=== PATIENT | male | born 1955 | race Caucasian/White ===

== ENCOUNTER → 2016-10-15 | Outpatient (CLI) | payer MEDICARE, BC ==
[~2016-10-15] MED LIST: AMLO10TA2 PO; AMLO25TA PO; ASPI1TAB PO; ATOR40TA PO; CITA10TA5 PO; CLON-404 PO; CLONI1TA PO; CLOTR1CR TOP; COUM2.5T11 PO; Calcium/Vitamin D PO; DICL13PA TD; DIPH50CA PO; DOCU10CA PO; DRIS50002 PO; FERG1TAB PO; FERR325T69 PO; GABA-283 PO; GABA300C3 PO; GLIP10TA6 PO; GLUC4CHW PO; HYDR10TAB PO; HYDR1CRE TOP; INSUHUMDS SC; INSULADS SC; ISOVUE-370 76% 100ML VIAL (Q9967) As Ordered ONE; K-TA10TA2 PO; LIPI20TA PO; LISI40TAB PO; LOVE0.6I2 SC; MAG400TA PO; MAGN1TAB25 PO; METF500T PO; MILKSUS PO; MIRA3350 PO; MORP15TA2 PO; MORP30TA34 PO; MSIR30TA PO; OSCA200T PO; POTA10CA PO; PRAD150C PO; PROT1TAB2 PO; SENN8.6C PO; TAMS0.4C2 PO; TRAZ25TA PO; TUMS500C PO; TYLE167L PO; TYLE325T5 PO; VITA100066 PO; ZOLP10TA2 PO
--- NOTE | 2016-10-15 16:32 | REP ---
Abdominal and bilateral lower extremity CT angiogram with IV contrast: History: Peripheral vascular disease. CT contrast dose: 100 ml of Isovue [address] technique: Helical scanning is acquired. 3 mm axial slices are reformatted. Coronal and sagittal multiplanar reformation images are generated and reviewed. In addition 3-D workstation generated thick slab MIP and curved array MPR images are acquired along with 3-D surface rendered images. These displayed rotationally. Nonvascular CT findings: The spleen measures 15 cm in anteroposterior dimension and is felt to be somewhat enlarged. There is an accessory splenule noted anteriorly. The spleen measured 13.8 cm in AP dimension in December 2015. There is a 1.0 cm calculus in the left kidney without hydronephrosis. This is unchanged from the prior CT. There is calcification of the vas deferens noted incidentally. There are degenerative changes in the lumbosacral spine. Vascular findings: The suprarenal and infrarenal abdominal aorta show minimal atherosclerotic irregularity, but are widely patent. The celiac and superior mesenteric artery origins are patent. The inferior mesenteric artery is perfused and patent. Singular non-stenotic right renal artery is seen. The left renal artery is duplicated. No renal artery stenosis is seen. Common iliac arteries are widely patent bilaterally. There is atherosclerotic irregularity at the common iliac artery bifurcations on both sides. The internal iliac arteries are patent, but calcific. No significant external iliac artery stenosis is seen on either side. On the left, there is a 50% stenosis at the origin of the superficial femoral artery. There is a 75% focal stenosis in the proximal superficial femoral artery on the left in the proximal thigh. There is a 50% stenosis in the adductor canal segment of the superficial femoral artery on the left. The left popliteal artery shows 75 to 80% stenosis at the level of the knee joint. Good caliber uninterrupted flow is seen in the left anterior tibial. This is seen crossing the ankle. The left peroneal is seen to the distal calf. The posterior tibial is occluded at the mid calf level. On the right, there is 50% stenosis in the proximal superficial femoral at the level of the proximal thigh. The right popliteal artery is occluded just above the level of the knee. Geniculate collaterals are perfused and reconstitutes the distal popliteal at the level of the tibioperoneal trunk. There is a short segment occlusion of the proximal posterior tibial artery. Anterior tibial artery is patent proximally and there is straight line flow to the ankle and the anterior tibial. Beyond the proximal occlusion, the posterior tibial artery is patent across the ankle as well. The peroneal artery is seen on the right in addition. Impression: Multifocal atherosclerotic lesions. The dominant abnormality is occlusion of the popliteal artery on the right and short segment occlusion of the proximal posterior tibial artery on the right in the proximal calf. There is a high-grade stenosis in the popliteal artery on the left. Multifocal superficial femoral artery stenoses are seen. Signed by Vicente Le MD 10/16/2016 08:28 A
== END ==
LOC: M RAD 13:34
PROVIDERS: ATTEND Internal Medicine Nephrology
DX: I70.303 Unspecified atherosclerosis of unspecified type of bypass graft(s) of the extremities, bilateral legs (principal); I70.8 Atherosclerosis of other arteries
CPT/HCPCS: 75635; Q9967

== ENCOUNTER → 2016-10-18 | Outpatient (REF) | payer MEDICARE, BC ==
[~2016-10-18] MED LIST changes: -ISOVUE-370 76% 100ML VIAL (Q9967) As Ordered ONE
[2016-10-19 14:16] LABS: CALCIUM LEVEL 8.9 MG/DL (8.8-10.2); CREATININE FOR GFR 1.95 MG/DL (0.70-1.30); GLOMERULAR FILTRATION RATE 37.5 (>49); POTASSIUM SERUM 3.4 MEQ/L (3.5-5.1)
== END ==
LOC: M LAB REF 09:38
PROVIDERS: ATTEND Internal Medicine Nephrology
DX: N18.5 Chronic kidney disease, stage 5 (principal)

== ENCOUNTER → 2016-12-07 | Outpatient (REF) | payer MEDICARE, BC ==
[2016-12-07 18:59] LABS: INR 1.14
== END ==
LOC: M LAB REF 17:28
PROVIDERS: ATTEND Internal Medicine Nephrology
DX: Z51.81 Encounter for therapeutic drug level monitoring (principal); Z79.01 Long term (current) use of anticoagulants

== ENCOUNTER → 2016-12-08 | Outpatient (CLI) | payer MEDICARE, BC ==
[~2016-12-08] MED LIST changes: +HEPARIN 1,000 UNITS/ML 10ML VIAL (FOR RADIOLOGY& DIALYSIS ONLY) As Ordered ONE; +ISOVUE-300 61% 50ML VIAL (Q9967) As Ordered ONE; +KETAMINE HCL 200 MG/20 ML VIAL As Ordered ONE; +METOCLOPRAMIDE INJ 10MG/2ML VIAL (J2765) IV PRN; +MIDAZOLAM INJ 2 MG/2 ML VIAL (J2250) As Ordered ONE; +ONDANSETRON 4MG/2ML VIAL (J2405) As Ordered ONE; +ONDANSETRON 4MG/2ML VIAL (J2405) IV PRN; +SODIUM BICARBONATE 8.4% INJ 50MEQ 50 ML VIAL As Ordered ONE; +fentaNYL 100 MCG/2 ML INJECTION (J3010) As Ordered ONE; +fentaNYL 100 MCG/2 ML INJECTION (J3010) IV PRN; +oxyCODONE 15 MG CR TAB PO ONE
[2016-12-08 15:50] VITALS: BP 131/56
--- NOTE | 2016-12-08 17:33 | REPKIM ---
CLINICAL HISTORY: Patient with history of ESRD on HD via right arm AVF, HTN, diabetes, CVA, DVT, PVD/PAD was referred to IR for an abdominal aortogram/ bilateral distal runoff possible intervention. Patient c/o relatively significant claudication/right leg pain during dialysis. PSH includes left 5th toe amputation approximately 4 years ago. PROCEDURE PERFORMED: 1. Abdominal Aortogram 2. Non-selective Pelvic Arteriogram 3. Selective Bilateral Lower Extremity Arteriogram INTERVENTIONALIST: Yaneth Carbajal MD CONSENT: The risks, benefits and alternatives to the procedure were explained to the patient and informed written consent was obtained. SEDATION: Sedation and analgesia was provided by the Anesthesiology Dept. CONTRAST: 158 mL Isovue 300 EBL: 10 mL FLUORO TIME: 7.2 minutes PROCEDURE: The patient was brought to the interventional radiology suite and was positioned supine on the table. Time out procedure was performed. The left groin was prepped and draped in the usual sterile fashion. Local anesthetic was established using 2% Lidocaine. A 4-Hebrew vascular sheath was introduced into the left common femoral artery using the Seldinger technique with a 25-gauge micropuncture needle under ultrasound guidance. Over a guidewire, a 4-Hebrew Omniflush catheter was advanced and under fluoroscopy positioned at the level of the renal arteries. Contrast was injected and abdominal aortogram was performed in the frontal projection. The catheter was withdrawn and positioned in the distal aorta above its bifurcation. Contrast was injected and non- selective pelvic angiogram was performed in both oblique projections. Contrast was injected through the side arm of the vascular sheath and a selective left lower extremity arteriogram was performed. Then selective catheterization of the right common iliac artery was performed and the guidewire advanced to the right external iliac artery. Then the catheter was advanced and its tip positioned in the right external iliac artery/SFA. Contrast was injected and a selective right lower extremity arteriogram was performed. The catheter and vascular sheath were removed. Hemostasis was achieved by manual compression over the puncture site. The patient tolerated the procedure well with no complications. This procedure was performed with fluoroscopic guidance. Dr. Carbajal was present. FINDINGS: ABDOMINAL AORTA: The visualized portion of the abdominal aorta and its bifurcation is patent and demonstrates a classic anatomy. There is a single renal artery bilaterally, The infrarenal aorta is patent without significant stenosis or aneurysmal dilation. LEFT LOWER EXTREMITY: The common iliac artery and external iliac artery are patent with no significant stenosis. The internal iliac artery is patent with moderate to severe disease. The common femoral artery is patent with no significant stenosis. The profunda femoris artery is patent with no significant stenosis. The SFA is patent and continuous. There are multisegmental moderate stenoses involving the superficial femoral artery. There is short segment, approximately half centimeter in length occlusion/near occlusive stenosis involving the popliteal artery at the knee joint level. The tibioperoneal segment is patent but moderately diseased. The posterior tibial artery is occluded. There are two vessel distal runoff via the anterior tibial artery and peroneal artery. The anterior tibial artery continues as the dorsalis pedis artery in the foot with a short segment occlusion at the DP level. RIGHT LOWER EXTREMITY: The common iliac artery and external iliac artery are patent with no significant stenosis. The internal iliac artery is patent with moderate to severe disease. The common femoral artery is patent with no significant stenosis. The profunda femoris artery is patent with no significant stenosis. There are multisegmental moderate stenoses involving the superficial femoral artery. The entire popliteal artery is completely occluded both above and below the knee level. The tibioperoneal segment is completely occluded. The proximal posterior tibial artery, peroneal artery and anterior tibial artery all reconstitute via well developed geniculate collateral vessels. The posterior tibial artery then continuous as the plantar artery in the foot. The anterior tibial artery also continues as the dorsalis pedis artery in the foot IMPRESSION: 1. Evaluation of the abdominal aorta and pelvic arteries is unremarkable except diseased bilateral internal iliac artery. There is no significant inflow problem. 2. Multisegmental moderate stenoses involving bilateral superficial femoral arteries. Bilateral SFAs are diseased but patent and continuous. Bilateral profunda femoris arteries are patent with no significant stenosis. 3. Short segment popliteal artery occlusion at the knee joint level with anterior tibial artery and peroneal artery two vessel distal runoff on the left as discussed above. 4. Long segment complete occlusion of the popliteal artery both above and below the knee level. Complete occlusion of the tibioperoneal trunk. There is reconstitution of the proximal posterior tibial, peroneal and anterior tibial artery via well developed geniculate artery collaterals on the right as discussed above. The posterior tibial artery then continuous as the plantar artery in the foot. The anterior tibial artery also continues as the dorsalis pedis artery in the foot Resume anticoagulation. Popliteal artery intervention across the knee joint area is not the best location for endovascular stenting. Advise vascular surgery evaluation. Findings and plan discussed via phone with Dr. Jeong. Please see the report above for all other findings and details. cc: MD PAT Rutherford
== END | disposition home or self-care (01) ==
LOC: M IRPRO 09:42
PROVIDERS: ATTEND Internal Medicine Nephrology
DX: I70.211 Atherosclerosis of native arteries of extremities with intermittent claudication, right leg (principal); N18.6 End stage renal disease; Z99.2 Dependence on renal dialysis
CPT/HCPCS: 36247; 75625; 84132; C1769; C1887; C1894; J2250; J2405; J3010; Q9967

== ENCOUNTER 2017-01-12 03:27 | Emergency (ER) | payer MEDICARE, BC ==
[~2017-01-12] VITALS: Ht 185.4 cm; Wt 108.9 kg
[~2017-01-12 03:27] MED LIST changes: +GABA-282 PO; -GABA300C3 PO; -HEPARIN 1,000 UNITS/ML 10ML VIAL (FOR RADIOLOGY& DIALYSIS ONLY) As Ordered ONE; -ISOVUE-300 61% 50ML VIAL (Q9967) As Ordered ONE; -KETAMINE HCL 200 MG/20 ML VIAL As Ordered ONE; -METOCLOPRAMIDE INJ 10MG/2ML VIAL (J2765) IV PRN; -MIDAZOLAM INJ 2 MG/2 ML VIAL (J2250) As Ordered ONE; -ONDANSETRON 4MG/2ML VIAL (J2405) As Ordered ONE; -ONDANSETRON 4MG/2ML VIAL (J2405) IV PRN; -SODIUM BICARBONATE 8.4% INJ 50MEQ 50 ML VIAL As Ordered ONE; -fentaNYL 100 MCG/2 ML INJECTION (J3010) As Ordered ONE; -fentaNYL 100 MCG/2 ML INJECTION (J3010) IV PRN; -oxyCODONE 15 MG CR TAB PO ONE
[2017-01-12] MEDS ORDERED: ISOVUE-370 76% 100ML VIAL (Q9967) As Ordered ONE (04:59)
[2017-01-12] MEDS ORDERED: METOCLOPRAMIDE INJ 10MG/2ML VIAL (J2765) IV ONE (05:00)
[2017-01-12] MEDS ORDERED: diphenhydrAMINE INJ 50MG/ML VIAL (J1200) IV ONE (05:00)
[2017-01-12] MEDS ORDERED: MORPHINE 4 MG/ML 1ML SYRINGE IV PRN (05:00)
[2017-01-12 05:08] LABS: BASO % 0.6 % (0.0-1.0); EOS # 0.2 K/mm3 (0.0-0.50); EOS % 3.7 % (0.0-3.0); LARGE UNSTAINED CELL # 0.1 K/mm3 (0.0-0.4); LARGE UNSTAINED CELL % 2.1 % (0.0-4.0); LYMPH # 1.7 K/mm3 (1.5-4.5); LYMPH % 26.5 % (24.0-44.0); MEAN CORPUSCULAR HEMOGLOBIN 30.8 pg (27.0-33.0); MEAN CORPUSCULAR HGB CONC 34.7 g/dl (32.0-36.5); MEAN CORPUSCULAR VOLUME 88.9 fl (80.0-96.0); MONO # 0.4 K/mm3 (0.0-0.8); MONO % 6.2 % (0.0-5.0); NEUTROPHILS # 3.8 K/mm3 (1.8-7.7); NEUTROPHILS % 61.1 % (36.0-66.0); PLATELET COUNT, AUTOMATED 357 k/mm3 (150-450); RED CELL DISTRIBUTION WIDTH 13.2 % (11.5-14.5); WHITE BLOOD COUNT 6.2 K/mm3 (4.0-10.0)
[2017-01-12 05:20] LABS: ALBUMIN 3.8 GM/DL (3.2-5.2); BILIRUBIN,DIRECT 0.1 MG/DL (0.0-0.2); BILIRUBIN,TOTAL 0.4 MG/DL (0.2-1.0); CREATININE FOR GFR 3.22 MG/DL (0.70-1.30); POTASSIUM SERUM 4.2 MEQ/L (3.5-5.1); TOTAL PROTEIN 7.6 GM/DL (6.4-8.2)
[2017-01-12 06:47] LABS: INR 1.93
--- NOTE | 2017-01-12 07:40 | ECGEPIP ---
Stationary ECG Study [place] - ED Test Date: 2017-01-12 Pat Name: LUPE MAYERS Department: Room: - Gender: M Database Security Administrator: COLBY : [id number] Requested By: ANGEL Simental Order Number: [id number] Reading MD: Kaykay David Measurements Intervals [place] Rate: 83 P: 44 IA: 155 QRS: 35 QRSD: 89 T: 54 QT: 375 QTc: 442 Interpretive Statements SINUS RHYTHM MINIMAL VOLTAGE CRITERIA FOR LVH, CONSIDER NORMAL VARIANT NONSPECIFIC ST & T-WAVE ABNORMALITY SIMILAR 08/04/16 Electronically Signed On 01-12-2017 7:40:08 EDT by Kaykay David
--- NOTE | 2017-01-12 08:00 | REPUSA ---
CLINICAL HISTORY: Abdominal pain. TECHNIQUE: Multiple axial, sagittal and coronal CT images were obtained through the abdomen and pelvi s after administration of intravenous contrast material. COMMENTS: The liver is mildly enlarged with decreased attenuation without mass or defect. There is no intra or extrahepatic biliary ductal dilatation. The spleen is normal. The gallbladder is within normal limits . The pancreas is of normal contour and attenuation characteristics. There is no evidence of adrenal mass. 8mm left renal nonobstructing stone. Bilateral perinephric fat stranding. Both kidneys demonstrate prompt and equal nephrograms. The kidneys are normal in size, shape and conf iguration. There is no evidence of renal or ureteral mass. No ureteral calculi are identified. There is no hydroureter or hydronephrosis. No evidence for appendicitis. There is no bowel wall thickening. No evidence for small or large dorene l obstruction. There is no evidence of abdominal ascites or lymphadenopathy. There is no evidence of intrinsic or extrinsic bladder mass. There is no pelvic ascites or lymphadeno fernandez. Mild diffuse thickening of the wall of the bladder. Images of the lung bases show no evidence of pleural or parenchymal mass. There are no pleural effusi ons. The bony structures are free of lytic or blastic lesions. Multilevel degenerative changes are seen in volving the thoracolumbar spine. Scattered calcifications are seen involving the aorta and major bran ches compatible with atherosclerosis. Bilateral fat containing inguinal hernias without incarceration. IMPRESSION: Bilateral perinephric fat stranding. Please correlate with urinalysis to exclude infection. Fluid-filled distended stomach suggestive of gastroparesis. Mild hepatomegaly with fatty liver infiltration. Thank you for your kind referral of this patient.
[2017-01-12 08:58] VITALS: BP 187/82
--- NOTE | 2017-01-14 07:08 | ED PDOC ---
Post-Departure Follow-Up dr bonilla faxed formal report of ct abd/p for fu Leonard Mac MD Jan 14, 2017 07:08
== END 2017-01-12 09:23 | disposition home or self-care (01) ==
LOC: M ED 04:00
DX: R11.2 Nausea with vomiting, unspecified (principal); R19.7 Diarrhea, unspecified; N18.6 End stage renal disease; Z99.2 Dependence on renal dialysis; K76.9 Liver disease, unspecified; Z79.899 Other long term (current) drug therapy; Z88.1 Allergy status to other antibiotic agents
CPT/HCPCS: 74177; 80048; 80076; 81001; 82550; 82553; 83690; 84484; 85025; 85610; 85730; 87086; 93005; 93041; 96374; 96375; 99285; J1200; J2765; Q9967

== ENCOUNTER 2017-01-20 12:12 | Emergency (ER) | payer MEDICARE, BC ==
[~2017-01-20] VITALS: Ht 185.4 cm; Wt 108.4 kg
[2017-01-20] MEDS ORDERED: GABA-283 PO (12:51)
[2017-01-20] MEDS ORDERED: GLUC4CHW PO (12:51)
[2017-01-20] MEDS ORDERED: DOCU100C PO (12:51)
[2017-01-20] MEDS ORDERED: CILO100T PO (12:51)
[2017-01-20] MEDS ORDERED: CALC1CAP PO (12:51)
[2017-01-20] MEDS ORDERED: OXYC15TA76 PO (12:51)
[2017-01-20] MEDS ORDERED: OXYC1SOL PO (12:51)
[2017-01-20] MEDS ORDERED: ONDANSETRON 4MG/2ML VIAL (J2405) IV ONE (13:15)
[2017-01-20] MEDS ORDERED: GASTROGRAFIN SOLUTION 30ML (Q9963) As Ordered ONE (13:28)
[2017-01-20 13:39] LABS: BASO # 0.1 K/mm3 (0.0-0.2); EOS # 0.3 K/mm3 (0.0-0.50); EOS % 4.4 % (0.0-3.0); LARGE UNSTAINED CELL # 0.2 K/mm3 (0.0-0.4); LARGE UNSTAINED CELL % 2.9 % (0.0-4.0); LYMPH # 1.8 K/mm3 (1.5-4.5); LYMPH % 24.2 % (24.0-44.0); MEAN CORPUSCULAR HEMOGLOBIN 30.7 pg (27.0-33.0); MEAN CORPUSCULAR HGB CONC 34.6 g/dl (32.0-36.5); MEAN CORPUSCULAR VOLUME 88.7 fl (80.0-96.0); MONO # 0.5 K/mm3 (0.0-0.8); MONO % 6.8 % (0.0-5.0); NEUTROPHILS # 4.1 K/mm3 (1.8-7.7); NEUTROPHILS % 60.7 % (36.0-66.0); PLATELET COUNT, AUTOMATED 353 k/mm3 (150-450); RED CELL DISTRIBUTION WIDTH 13.4 % (11.5-14.5); WHITE BLOOD COUNT 6.7 K/mm3 (4.0-10.0)
[2017-01-20] MEDS: NS 1,000 ML IV SCH ×2 (13:44→13:46)
[2017-01-20 13:45] LABS: INR 1.98
[2017-01-20] MEDS ORDERED: GASTROGRAFIN SOLUTION 30ML (Q9963) PO ONE (13:45)
[2017-01-20 13:57] LABS: ALBUMIN 3.6 GM/DL (3.2-5.2); ALBUMIN/GLOBULIN RATIO 0.78 (1.00-1.93); BILIRUBIN,DIRECT 0.1 MG/DL (0.0-0.2); BILIRUBIN,TOTAL 0.4 MG/DL (0.2-1.0); CREATININE FOR GFR 2.24 MG/DL (0.70-1.30); POTASSIUM SERUM 3.6 MEQ/L (3.5-5.1); TOTAL PROTEIN 8.2 GM/DL (6.4-8.2)
--- NOTE | 2017-01-20 16:06 | REP ---
CT ABDOMEN AND PELVIS WITHOUT IV CONTRAST: CT abdomen and pelvis performed without IV contrast. Oral contrast was administered. Sagittal and coronal reconstruction images are performed. Comparison made with prior study of 01/12/2017. Visualized lung bases are clear. Liver, spleen, adrenals, pancreas and kidneys are essentially unremarkable and unchanged. Intrarenal calculus on the left is stable. There is no hydronephrosis. Small periaortic lymph nodes are seen without significant adenopathy. There is no abdominal aortic aneurysm. There is no free air or free fluid. No bowel wall thickening is seen. No pelvic mass is seen. Urinary bladder appears unremarkable. There are degenerative changes of the spine. IMPRESSION: No acute abnormalities are seen. No free air or free fluid. No evidence bowel obstruction. Left intrarenal calculus without hydronephrosis. Signed by Prakash Chavez MD 01/21/2017 04:46 P
[2017-01-20] MEDS ORDERED: ZITHTAB PO (16:07)
[2017-01-20] MEDS ORDERED: TESS100C PO (16:07)
[2017-01-20 17:58] VITALS: BP 192/88
== END 2017-01-20 18:01 | disposition home or self-care (01) ==
LOC: M ED 15:29
DX: J06.9 Acute upper respiratory infection, unspecified (principal); I51.9 Heart disease, unspecified; E11.9 Type 2 diabetes mellitus without complications; I10 Essential (primary) hypertension; Z79.899 Other long term (current) drug therapy; Z79.4 Long term (current) use of insulin; Z79.01 Long term (current) use of anticoagulants; Z88.1 Allergy status to other antibiotic agents
CPT/HCPCS: 51701; 74176; 80048; 80076; 83690; 85025; 85610; 96374; 99283; J2405; Q9963

== ENCOUNTER → 2017-01-29 | Outpatient (REF) | payer MEDICARE, BC ==
[~2017-01-29] MED LIST changes: +CALC1CAP PO; +CILO100T PO; +DOCU100C PO; +OXYC15TA76 PO; +OXYC1SOL PO; +TESS100C PO; +ZITHTAB PO
== END ==
LOC: M LAB REF 13:12
PROVIDERS: ATTEND Physician Assistant Medical
DX: R19.7 Diarrhea, unspecified (principal)

== ENCOUNTER 2017-11-30 06:00 | Emergency (ER) | payer MEDICARE, BC ==
[2017-11-30 08:05] LABS: BASO # 0.1 10^3/uL (0.0-0.2); BASO % 0.9 % (0.0-1.0); EOS # 0.2 10^3/uL (0.0-0.50); EOS % 2.7 % (0.0-3.0); HEMATOCRIT 35.6 % (42.0-52.0); HEMOGLOBIN 11.8 g/dl (14.0-18.0); IMMATURE GRANULOCYTE % 0.4 % (0-3.0); LYMPH # 1.9 10^3/uL (1.5-4.5); MEAN CORPUSCULAR HEMOGLOBIN 30.3 pg (27.0-33.0); MEAN CORPUSCULAR HGB CONC 33.1 g/dl (32.0-36.5); MEAN CORPUSCULAR VOLUME 91.5 fl (80.0-96.0); MONO # 0.7 10^3/uL (0.0-0.8); MONO % 10.3 % (0.0-5.0); NEUTROPHILS # 4.1 10^3/uL (1.8-7.7); NEUTROPHILS % 58.7 % (36.0-66.0); PLATELET COUNT, AUTOMATED 285 10^3/uL (150-450); RED BLOOD COUNT 3.89 10^6/uL (4.30-6.10); RED CELL DISTRIBUTION WIDTH 14.4 % (11.5-14.5)
[2017-11-30 08:12] LABS: INR 2.33; PROTHROMBIN TIME 26.5 SECONDS (12.4-14.5)
[2017-11-30 08:31] LABS: ANION GAP 6 MEQ/L (8-16); BLOOD UREA NITROGEN 36 MG/DL (7-18); CALCIUM LEVEL 8.6 MG/DL (8.8-10.2); CARBON DIOXIDE LEVEL 31 MEQ/L (21-32); CHLORIDE LEVEL 99 MEQ/L (98-107); CREATININE FOR GFR 4.85 MG/DL (0.70-1.30); GLOMERULAR FILTRATION RATE 13.1 (>49); GLUCOSE, FASTING 103 MG/DL (70-100); SODIUM LEVEL 136 MEQ/L (136-145)
[2017-11-30 08:47] LABS: NT-PRO BNP 3616 PG/ML (<125)
== END 2017-11-30 14:02 | disposition home or self-care (01) ==
LOC: M ED 06:00
DX: M79.604 Pain in right leg (principal); I70.211 Atherosclerosis of native arteries of extremities with intermittent claudication, right leg; J44.9 Chronic obstructive pulmonary disease, unspecified; N40.0 Benign prostatic hyperplasia without lower urinary tract symptoms; M54.9 Dorsalgia, unspecified; G89.29 Other chronic pain; H91.93 Unspecified hearing loss, bilateral; Z79.4 Long term (current) use of insulin; Z79.899 Other long term (current) drug therapy; Z79.01 Long term (current) use of anticoagulants; Z95.820 Peripheral vascular angioplasty status with implants and grafts; Z99.2 Dependence on renal dialysis; Z98.890 Other specified postprocedural states; Z88.8 Allergy status to other drugs, medicaments and biological substances
CPT/HCPCS: 93971

== ENCOUNTER → 2018-01-25 | Outpatient (CLI) | payer MEDICARE | LOC: M RAD 07:01 | DX: I70.213 Atherosclerosis of native arteries of extremities with intermittent claudication, bilateral legs (principal) | CPT/HCPCS: 93926 ==

== ENCOUNTER → 2018-02-01 | Outpatient (CLI) | payer MEDICARE ==
[~2018-02-01] MED LIST changes: -AMLO10TA2 PO; -AMLO25TA PO; -ASPI1TAB PO; -ATOR40TA PO; -CALC1CAP PO; -CILO100T PO; -CITA10TA5 PO; -CLON-404 PO; -CLONI1TA PO; -CLOTR1CR TOP; -COUM2.5T11 PO; -Calcium/Vitamin D PO; -DICL13PA TD; -DIPH50CA PO; -DOCU100C PO; -DOCU10CA PO; -DRIS50002 PO; -FERG1TAB PO; -FERR325T69 PO; -GABA-282 PO; -GABA-283 PO; -GLIP10TA6 PO; -GLUC4CHW PO; -HYDR10TAB PO; -HYDR1CRE TOP; -INSUHUMDS SC; -INSULADS SC; +ISOVUE-300 61% 50ML VIAL (Q9967) As Ordered; -K-TA10TA2 PO; -LIPI20TA PO; -LISI40TAB PO; -LOVE0.6I2 SC; -MAG400TA PO; -MAGN1TAB25 PO; -METF500T PO; -MILKSUS PO; -MIRA3350 PO; -MORP15TA2 PO; -MORP30TA34 PO; -MSIR30TA PO; -OSCA200T PO; -OXYC15TA76 PO; -OXYC1SOL PO; -POTA10CA PO; -PRAD150C PO; -PROT1TAB2 PO; -SENN8.6C PO; -TAMS0.4C2 PO; -TESS100C PO; -TRAZ25TA PO; -TUMS500C PO; -TYLE167L PO; -TYLE325T5 PO; -VITA100066 PO; -ZITHTAB PO; -ZOLP10TA2 PO
== END | disposition home or self-care (01) ==
LOC: M IRPRO 07:54
DX: M79.641 Pain in right hand (principal); N18.6 End stage renal disease; Z99.2 Dependence on renal dialysis
CPT/HCPCS: 36901

== ENCOUNTER 2018-02-17 14:52 | Day surgery (SDC) | payer MEDICARE ==
[2018-02-17] MEDS ORDERED: LR 1,000 ML IV (15:00)
[2018-02-17] MEDS: NS 1,000 ML IV (15:35)
[2018-02-17 15:42] LABS: BEDSIDE GLUCOSE 234 MG/DL (80-115)
[2018-02-17 15:50] LABS: INR 2.17
[2018-02-17 16:14] LABS: POTASSIUM SERUM 4.9 MEQ/L (3.5-5.1)
[2018-02-17] MEDS: ISOVUE-300 61% 50ML VIAL (Q9967) As Ordered (17:36)
[2018-02-17] MEDS ORDERED: MIDAZOLAM INJ 2 MG/2 ML VIAL (J2250) As Ordered (18:05)
[2018-02-17] MEDS ORDERED: LIDOCAINE 2% INJ 100 MG/5 ML SDV (FOR ANES.) As Ordered (18:05)
[2018-02-17] MEDS ORDERED: fentaNYL 100 MCG/2 ML INJECTION (J3010) As Ordered (18:05)
[2018-02-17] MEDS ORDERED: PROPOFOL 200 MG/20 ML VIAL As Ordered (18:05)
[2018-02-17] MEDS: HEPARIN SOD (PORCINE) 5000 UNITS/ML VIAL As Ordered (18:11)
[2018-02-17] MEDS: BUPIVACAINE HCL 0.5% 30 ML VIAL As Ordered (18:11)
[2018-02-17] MEDS: LIDOCAINE 1% SDV INJ 30 ML VIAL As Ordered (18:11)
[2018-02-18] MEDS ORDERED: UNRESOLVED CLARIFICATION ENTRY XX (00:01)
== END 2018-02-17 19:05 | disposition home or self-care (01) ==
LOC: M SDC 14:52
DX: T82.898A Other specified complication of vascular prosthetic devices, implants and grafts, initial encounter (principal); E10.9 Type 1 diabetes mellitus without complications; G47.30 Sleep apnea, unspecified; Z79.4 Long term (current) use of insulin; E78.5 Hyperlipidemia, unspecified; F32.9 Major depressive disorder, single episode, unspecified; Z79.899 Other long term (current) drug therapy; Z86.73 Personal history of transient ischemic attack (TIA), and cerebral infarction without residual deficits; Z87.891 Personal history of nicotine dependence
CPT/HCPCS: 36832

== ENCOUNTER → 2018-04-28 | Outpatient (CLI) | payer MEDICARE | END | disposition home or self-care (01) | LOC: M IRPRO 10:20 | DX: T82.898A Other specified complication of vascular prosthetic devices, implants and grafts, initial encounter (principal); E11.22 Type 2 diabetes mellitus with diabetic chronic kidney disease; I12.0 Hypertensive chronic kidney disease with stage 5 chronic kidney disease or end stage renal disease; N18.6 End stage renal disease; E78.00 Pure hypercholesterolemia, unspecified; Z86.73 Personal history of transient ischemic attack (TIA), and cerebral infarction without residual deficits; Z87.891 Personal history of nicotine dependence | CPT/HCPCS: 36832 ==

== ENCOUNTER 2018-05-11 08:55 | Day surgery (SDC) | payer MEDICARE ==
[2018-05-11] MEDS: NS 1,000 ML IV (06:00)
[2018-05-11 09:55] LABS: BEDSIDE GLUCOSE 274 MG/DL (80-115)
[2018-05-11] MEDS ORDERED: PROPOFOL 200 MG/20 ML VIAL As Ordered ×2 (10:08→10:58)
[2018-05-11] MEDS ORDERED: LIDOCAINE 2% INJ 100 MG/5 ML SDV (FOR ANES.) As Ordered (10:08)
[2018-05-11] MEDS ORDERED: GLYCOPYRROLATE INJ 0.2 MG/ML 2 ML VIAL As Ordered (10:31)
== END 2018-05-11 12:02 | disposition home or self-care (01) ==
LOC: M OPP 08:55
DX: Z12.11 Encounter for screening for malignant neoplasm of colon (principal); D12.2 Benign neoplasm of ascending colon; D12.3 Benign neoplasm of transverse colon; D12.5 Benign neoplasm of sigmoid colon; K64.8 Other hemorrhoids; I12.0 Hypertensive chronic kidney disease with stage 5 chronic kidney disease or end stage renal disease; E78.5 Hyperlipidemia, unspecified; E10.9 Type 1 diabetes mellitus without complications; K59.00 Constipation, unspecified; Z86.718 Personal history of other venous thrombosis and embolism; M19.90 Unspecified osteoarthritis, unspecified site; F32.9 Major depressive disorder, single episode, unspecified; F41.9 Anxiety disorder, unspecified; I63.9 Cerebral infarction, unspecified; J44.9 Chronic obstructive pulmonary disease, unspecified; G62.9 Polyneuropathy, unspecified; R06.83 Snoring; G47.30 Sleep apnea, unspecified; N18.6 End stage renal disease; N40.1 Benign prostatic hyperplasia with lower urinary tract symptoms; Z99.2 Dependence on renal dialysis; Z87.442 Personal history of urinary calculi; Z98.1 Arthrodesis status; Z89.422 Acquired absence of other left toe(s); Z97.8 Presence of other specified devices; Z79.01 Long term (current) use of anticoagulants; Z79.899 Other long term (current) drug therapy; Z79.4 Long term (current) use of insulin; Z87.891 Personal history of nicotine dependence
CPT/HCPCS: 45385

== ENCOUNTER 2018-07-18 12:30 | Emergency (ER) | payer MEDICARE ==
[2018-07-18 13:33] LABS: BASO # 0.1 10^3/uL (0.0-0.2); BASO % 0.4 % (0.0-1.0); EOS % 0.3 % (0.0-3.0); HEMATOCRIT 33.9 % (42.0-52.0); HEMOGLOBIN 11.1 g/dl (13.5-17.5); IMMATURE GRANULOCYTE % 0.4 % (0-3.0); LYMPH # 1.2 10^3/uL (1.5-4.5); LYMPH % 10.8 % (24.0-44.0); MEAN CORPUSCULAR HGB CONC 32.7 g/dl (32.0-36.5); MEAN CORPUSCULAR VOLUME 88.5 fl (80.0-96.0); MONO # 0.5 10^3/uL (0.0-0.8); MONO % 4.6 % (0.0-5.0); NEUTROPHILS # 9.5 10^3/uL (1.8-7.7); NEUTROPHILS % 83.5 % (36.0-66.0); PLATELET COUNT, AUTOMATED 222 10^3/uL (150-450); RED BLOOD COUNT 3.83 10^6/uL (4.30-6.10); RED CELL DISTRIBUTION WIDTH 13.5 % (11.5-14.5); WHITE BLOOD COUNT 11.3 10^3/uL (4.0-10.0)
[2018-07-18 13:37] LABS: PARTIAL THROMBOPLASTIN TIME 43.2 SECONDS (25.4-37.6)
[2018-07-18 13:42] LABS: ALBUMIN 3.5 GM/DL (3.2-5.2); ALBUMIN/GLOBULIN RATIO 0.85 (1.00-1.93); ALKALINE PHOSPHATASE 132 U/L (45-117); ALT/SGPT 25 U/L (12-78); ANION GAP 11 MEQ/L (8-16); AST/SGOT 23 U/L (7-37); BILIRUBIN,DIRECT 0.1 MG/DL (0.0-0.2); BILIRUBIN,TOTAL 0.4 MG/DL (0.2-1.0); BLOOD UREA NITROGEN 45 MG/DL (7-18); CALCIUM LEVEL 7.8 MG/DL (8.8-10.2); CARBON DIOXIDE LEVEL 23 MEQ/L (21-32); CHLORIDE LEVEL 104 MEQ/L (98-107); CREATININE FOR GFR 5.57 MG/DL (0.70-1.30); GLOMERULAR FILTRATION RATE 11.1 (>49); GLUCOSE, FASTING 218 MG/DL (70-100); POTASSIUM SERUM 4.4 MEQ/L (3.5-5.1); SODIUM LEVEL 138 MEQ/L (136-145); TOTAL PROTEIN 7.6 GM/DL (6.4-8.2)
[2018-07-18 13:44] LABS: CPK CREATINE PHOSPHOKINASE 363 U/L (39-308); LIPASE 96 U/L (73-393); MB/CK RELATIVE INDEX 2.37 (< OR =4); NT-PRO BNP 5821 PG/ML (<125); TROPONIN I 0.02 NG/ML (< 0.10)
[2018-07-18] MEDS: METOCLOPRAMIDE INJ 10MG/2ML VIAL (J2765) IV (14:13)
== END 2018-07-18 15:19 | disposition home or self-care (01) ==
LOC: M ED 12:30
DX: R11.2 Nausea with vomiting, unspecified (principal); E87.70 Fluid overload, unspecified; Z99.2 Dependence on renal dialysis; I13.2 Hypertensive heart and chronic kidney disease with heart failure and with stage 5 chronic kidney disease, or end stage renal disease; I50.9 Heart failure, unspecified; E11.22 Type 2 diabetes mellitus with diabetic chronic kidney disease; N18.6 End stage renal disease; Z86.718 Personal history of other venous thrombosis and embolism; Z87.442 Personal history of urinary calculi
CPT/HCPCS: J2765

== ENCOUNTER 2018-07-31 05:14 | Observation (INO) | payer MEDICARE ==
[2018-07-31] MEDS: ONDANSETRON 4MG/2ML VIAL (J2405) IV ×4 (06:00→21:22)
[2018-07-31] MEDS ORDERED: NS 1,000 ML IV ×2 (06:00)
[2018-07-31 06:11] LABS: BASO # 0.1 10^3/uL (0.0-0.2); BASO % 0.4 % (0.0-1.0); EOS # 0.1 10^3/uL (0.0-0.50); EOS % 0.6 % (0.0-3.0); HEMATOCRIT 34.8 % (42.0-52.0); IMMATURE GRANULOCYTE % 0.3 % (0-3.0); LYMPH # 2.1 10^3/uL (1.5-4.5); MEAN CORPUSCULAR HEMOGLOBIN 28.6 pg (27.0-33.0); MEAN CORPUSCULAR HGB CONC 31.6 g/dl (32.0-36.5); MEAN CORPUSCULAR VOLUME 90.4 fl (80.0-96.0); MONO # 0.6 10^3/uL (0.0-0.8); NEUTROPHILS # 9.3 10^3/uL (1.8-7.7); NEUTROPHILS % 76.7 % (36.0-66.0); PLATELET COUNT, AUTOMATED 267 10^3/uL (150-450); RED BLOOD COUNT 3.85 10^6/uL (4.30-6.10); RED CELL DISTRIBUTION WIDTH 13.6 % (11.5-14.5); WHITE BLOOD COUNT 12.1 10^3/uL (4.0-10.0)
[2018-07-31] MEDS: NS 500 ML IV ×2 (06:15)
[2018-07-31] MEDS: MORPHINE 2 MG/ML 1ML SYRINGE (J2270) IV ×2 (06:15)
[2018-07-31 06:35] LABS: LACTIC ACID SEPSIS PROTOCOL 5.1 MMOL/L (0.4-2.0)
[2018-07-31 06:45] LABS: ALBUMIN 3.5 GM/DL (3.2-5.2); ALBUMIN/GLOBULIN RATIO 0.78 (1.00-1.93); ALKALINE PHOSPHATASE 107 U/L (45-117); ALT/SGPT 46 U/L (12-78); ANION GAP 14 MEQ/L (8-16); AST/SGOT 160 U/L (7-37); BILIRUBIN,DIRECT < 0.1 MG/DL (0.0-0.2); BILIRUBIN,TOTAL 0.3 MG/DL (0.2-1.0); BLOOD UREA NITROGEN 50 MG/DL (7-18); CALCIUM LEVEL 8.8 MG/DL (8.8-10.2); CARBON DIOXIDE LEVEL 25 MEQ/L (21-32); CHLORIDE LEVEL 98 MEQ/L (98-107); CPK CREATINE PHOSPHOKINASE 7892 U/L (39-308); CREATININE FOR GFR 7.05 MG/DL (0.70-1.30); GLOMERULAR FILTRATION RATE 8.5 (>49); GLUCOSE, FASTING 282 MG/DL (70-100); LIPASE 75 U/L (73-393); MAGNESIUM LEVEL 1.8 MG/DL (1.8-2.4); POTASSIUM SERUM 4.6 MEQ/L (3.5-5.1); SODIUM LEVEL 137 MEQ/L (136-145); TROPONIN I 0.04 NG/ML (< 0.10)
[2018-07-31 07:24] LABS: INR 2.08; PROTHROMBIN TIME 23.8 SECONDS (12.1-14.4)
[2018-07-31] MEDS: SILVER SULFADIAZINE 1% CR 50 GM JAR TOP ×2 (08:59)
[2018-07-31] MEDS: MORPHINE 4 MG/ML 1ML VIAL/SYRINGE (J2270) IV ×2 (09:45)
[2018-07-31 11:13] LABS: BASO % 0.3 % (0.0-1.0); EOS % 0.2 % (0.0-3.0); HEMOGLOBIN 11.4 g/dl (13.5-17.5); IMMATURE GRANULOCYTE % 0.4 % (0-3.0); LYMPH # 1.8 10^3/uL (1.5-4.5); LYMPH % 14.9 % (24.0-44.0); MEAN CORPUSCULAR HEMOGLOBIN 29.4 pg (27.0-33.0); MEAN CORPUSCULAR HGB CONC 32.6 g/dl (32.0-36.5); MEAN CORPUSCULAR VOLUME 90.2 fl (80.0-96.0); MONO # 0.5 10^3/uL (0.0-0.8); MONO % 4.2 % (0.0-5.0); NEUTROPHILS # 9.7 10^3/uL (1.8-7.7); PLATELET COUNT, AUTOMATED 248 10^3/uL (150-450); RED BLOOD COUNT 3.88 10^6/uL (4.30-6.10); RED CELL DISTRIBUTION WIDTH 13.7 % (11.5-14.5); WHITE BLOOD COUNT 12.1 10^3/uL (4.0-10.0)
[2018-07-31 11:42] LABS: LACTIC ACID SEPSIS PROTOCOL 2.9 MMOL/L (0.4-2.0)
[2018-07-31 11:49] LABS: TROPONIN I 0.04 NG/ML (< 0.10)
[2018-07-31 12:02] LABS: CPK CREATINE PHOSPHOKINASE 7837 U/L (39-308)
[2018-07-31] MEDS ORDERED: ACETAMINOPHEN TAB 650MG DOSE (2X325MG) PO ×2 (13:00)
[2018-07-31] MEDS ORDERED: oxyCODONE 5MG TAB PO ×2 (13:15)
[2018-07-31] MEDS: PANTOPRAZOLE 40MG INJ (PROTONIX) (C9113) IV ×2 (13:45)
[2018-07-31 14:50] LABS: ETHYL ALCOHOL (ETHANOL) < 0.003 % (0.000-0.010)
[2018-07-31] MEDS: FERROUS GLUCONATE 324 MG TAB PO ×4 (16:24→21:22)
[2018-07-31] MEDS: WARFARIN SOD 3 MG TAB PO ×2 (16:24)
[2018-07-31 17:18] LABS: BEDSIDE GLUCOSE 243 MG/DL (80-115)
[2018-07-31] MEDS ORDERED: GLUCOSE 4 GM CHEW TABLET PO ×2 (17:30)
[2018-07-31] MEDS ORDERED: DEXTROSE 50% 50 ML SYRINGE IV ×2 (17:30)
[2018-07-31] MEDS ORDERED: GLUCAGON FOR INJ 1 MG VIAL (J1610) SC ×2 (17:30)
[2018-07-31] MEDS: HumaLOG INSULIN (NovoLOG) PER UNIT SC ×4 (17:59→21:23)
[2018-07-31] MEDS: CILOSTAZOL 100 MG TAB (PLETAL) PO ×2 (18:00)
[2018-07-31] MEDS: CALCIUM ACETATE 667 MG GELCAP PO ×2 (18:00)
[2018-07-31 20:51] LABS: BEDSIDE GLUCOSE 200 MG/DL (80-115)
[2018-07-31] MEDS ORDERED: HEPARIN SOD (PORCINE) 5000 UNITS/ML VIAL SC ×2 (21:00)
[2018-07-31] MEDS: oxyCODONE 15 MG CR TAB PO ×2 (21:21)
[2018-07-31] MEDS: GABAPENTIN 300 MG CAP PO ×2 (21:21)
[2018-07-31] MEDS: LEVEMIR (INSULIN DETEMIR) 1 UNITS/0.01ML SC ×2 (21:22)
[2018-07-31] MEDS: cloNIDine 0.2 MG TAB PO ×2 (21:22)
[2018-08-01] MEDS: CILOSTAZOL 100 MG TAB (PLETAL) PO ×4 (06:47→18:13)
[2018-08-01] MEDS: FERROUS GLUCONATE 324 MG TAB PO ×6 (06:47→21:38)
[2018-08-01] MEDS: cloNIDine 0.2 MG TAB PO ×4 (06:47→21:38)
[2018-08-01] MEDS: GABAPENTIN 300 MG CAP PO ×2 (06:47)
[2018-08-01] MEDS: PANTOPRAZOLE 40MG INJ (PROTONIX) (C9113) IV ×2 (06:47)
[2018-08-01] MEDS: CALCIUM ACETATE 667 MG GELCAP PO ×6 (06:48→18:13)
[2018-08-01] MEDS: oxyCODONE 15 MG CR TAB PO ×2 (06:50)
[2018-08-01 07:16] LABS: HEMATOCRIT 33.2 % (42.0-52.0); HEMOGLOBIN 10.6 g/dl (13.5-17.5); MEAN CORPUSCULAR HEMOGLOBIN 28.8 pg (27.0-33.0); MEAN CORPUSCULAR HGB CONC 31.9 g/dl (32.0-36.5); MEAN CORPUSCULAR VOLUME 90.2 fl (80.0-96.0); PLATELET COUNT, AUTOMATED 255 10^3/uL (150-450); RED BLOOD COUNT 3.68 10^6/uL (4.30-6.10); RED CELL DISTRIBUTION WIDTH 13.7 % (11.5-14.5); WHITE BLOOD COUNT 9.1 10^3/uL (4.0-10.0)
[2018-08-01 07:19] LABS: INR 2.43; PROTHROMBIN TIME 26.9 SECONDS (12.1-14.4)
[2018-08-01 07:34] LABS: ALBUMIN 3.4 GM/DL (3.2-5.2); ALBUMIN/GLOBULIN RATIO 0.79 (1.00-1.93); ALKALINE PHOSPHATASE 99 U/L (45-117); ALT/SGPT 50 U/L (12-78); ANION GAP 10 MEQ/L (8-16); AST/SGOT 118 U/L (7-37); BILIRUBIN,TOTAL 0.4 MG/DL (0.2-1.0); BLOOD UREA NITROGEN 59 MG/DL (7-18); CALCIUM LEVEL 8.3 MG/DL (8.8-10.2); CARBON DIOXIDE LEVEL 26 MEQ/L (21-32); CHLORIDE LEVEL 99 MEQ/L (98-107); CPK CREATINE PHOSPHOKINASE 4554 U/L (39-308); CREATININE FOR GFR 8.47 MG/DL (0.70-1.30); GLOMERULAR FILTRATION RATE 6.8 (>49); GLUCOSE, FASTING 175 MG/DL (70-100); LDH LACTATE DEHYDROGENASE 339 U/L (87-241); POTASSIUM SERUM 5.7 MEQ/L (3.5-5.1); SODIUM LEVEL 135 MEQ/L (136-145); TOTAL PROTEIN 7.7 GM/DL (6.4-8.2)
[2018-08-01] MEDS: CitaloPRAM (CeleXA) 10 MG TABLET PO ×2 (08:41)
[2018-08-01] MEDS: ATORVASTATIN 20 MG TAB PO ×2 (08:42)
[2018-08-01] MEDS: HumaLOG INSULIN (NovoLOG) PER UNIT SC ×8 (08:42→21:38)
[2018-08-01 11:38] LABS: BEDSIDE GLUCOSE 117 MG/DL (80-115)
[2018-08-01 18:07] LABS: BEDSIDE GLUCOSE 139 MG/DL (80-115)
[2018-08-01] MEDS: WARFARIN SOD 3 MG TAB PO ×2 (18:13)
[2018-08-01 21:33] LABS: BEDSIDE GLUCOSE 161 MG/DL (80-115)
[2018-08-01] MEDS: LEVEMIR (INSULIN DETEMIR) 1 UNITS/0.01ML SC ×2 (21:38)
[2018-08-02] MEDS: PIPERACILLIN/TAZOBACTAM SOD 2.25 GM in D5W MINI-BAG PLUS 50 ML IV ×2 (01:48→09:00)
[2018-08-02] MEDS ORDERED: HALOPERIDOL 5 MG/ML VIAL (J1630) IM ×2 (05:00)
[2018-08-02 06:35] LABS: HEMATOCRIT 32.8 % (42.0-52.0); HEMOGLOBIN 10.7 g/dl (13.5-17.5); MEAN CORPUSCULAR HEMOGLOBIN 28.8 pg (27.0-33.0); MEAN CORPUSCULAR HGB CONC 32.6 g/dl (32.0-36.5); MEAN CORPUSCULAR VOLUME 88.2 fl (80.0-96.0); PLATELET COUNT, AUTOMATED 255 10^3/uL (150-450); RED BLOOD COUNT 3.72 10^6/uL (4.30-6.10); RED CELL DISTRIBUTION WIDTH 13.6 % (11.5-14.5); WHITE BLOOD COUNT 10.3 10^3/uL (4.0-10.0)
[2018-08-02 06:46] LABS: INR 3.63
[2018-08-02 07:13] LABS: ALBUMIN 3.5 GM/DL (3.2-5.2); ALBUMIN/GLOBULIN RATIO 0.81 (1.00-1.93); ALKALINE PHOSPHATASE 92 U/L (45-117); ALT/SGPT 43 U/L (12-78); ANION GAP 12 MEQ/L (8-16); AST/SGOT 95 U/L (7-37); BILIRUBIN,TOTAL 0.4 MG/DL (0.2-1.0); BLOOD UREA NITROGEN 38 MG/DL (7-18); CALCIUM LEVEL 8.6 MG/DL (8.8-10.2); CARBON DIOXIDE LEVEL 28 MEQ/L (21-32); CHLORIDE LEVEL 95 MEQ/L (98-107); CPK CREATINE PHOSPHOKINASE 2976 U/L (39-308); CREATININE FOR GFR 6.25 MG/DL (0.70-1.30); GLOMERULAR FILTRATION RATE 9.7 (>49); GLUCOSE, FASTING 161 MG/DL (70-100); POTASSIUM SERUM 4.7 MEQ/L (3.5-5.1); SODIUM LEVEL 135 MEQ/L (136-145); TOTAL PROTEIN 7.8 GM/DL (6.4-8.2)
[2018-08-02] MEDS: HumaLOG INSULIN (NovoLOG) PER UNIT SC ×6 (07:30→11:06)
[2018-08-02] MEDS: CitaloPRAM (CeleXA) 10 MG TABLET PO ×2 (07:52)
[2018-08-02] MEDS: FERROUS GLUCONATE 324 MG TAB PO ×2 (07:53)
[2018-08-02] MEDS: CALCIUM ACETATE 667 MG GELCAP PO ×4 (07:53→11:06)
[2018-08-02] MEDS: CILOSTAZOL 100 MG TAB (PLETAL) PO ×2 (07:53)
[2018-08-02] MEDS: cloNIDine 0.2 MG TAB PO ×2 (07:53)
[2018-08-02] MEDS: PANTOPRAZOLE 40MG INJ (PROTONIX) (C9113) IV ×2 (09:00)
== END 2018-08-02 14:29 | disposition home or self-care (01) ==
LOC: M ED 05:14 → M ED INP 12:17 → M MSPAV 15:41
PROVIDERS: Internal Medicine
DX: R11.2 Nausea with vomiting, unspecified (principal); G93.41 Metabolic encephalopathy; R79.89 Other specified abnormal findings of blood chemistry; R74.0 Nonspecific elevation of levels of transaminase and lactic acid dehydrogenase [LDH]; D72.829 Elevated white blood cell count, unspecified; D50.9 Iron deficiency anemia, unspecified; N18.6 End stage renal disease; Z86.73 Personal history of transient ischemic attack (TIA), and cerebral infarction without residual deficits; F32.9 Major depressive disorder, single episode, unspecified; G89.29 Other chronic pain; Z79.899 Other long term (current) drug therapy; Z79.01 Long term (current) use of anticoagulants
CPT/HCPCS: C9113

== ENCOUNTER 2018-08-03 15:09 | Emergency (ER) | payer MEDICARE | END 2018-08-03 18:23 | disposition home or self-care (01) | LOC: M ED 15:09 | DX: S00.03XA Contusion of scalp, initial encounter (principal); T23.272A Burn of second degree of left wrist, initial encounter; W19.XXXA Unspecified fall, initial encounter; X12.XXXA Contact with other hot fluids, initial encounter; Y92.099 Unspecified place in other non-institutional residence as the place of occurrence of the external cause; Y93.9 Activity, unspecified; Y99.9 Unspecified external cause status; I51.9 Heart disease, unspecified; Z86.718 Personal history of other venous thrombosis and embolism; D64.9 Anemia, unspecified; Z79.01 Long term (current) use of anticoagulants; Z79.899 Other long term (current) drug therapy | CPT/HCPCS: 72220 ==

== ENCOUNTER → 2018-08-25 | Outpatient (REF) | payer MEDICARE ==
[2018-08-25 10:03] LABS: INR 1.53; PROTHROMBIN TIME 18.6 SECONDS (12.1-14.4)
== END ==
LOC: SKLAB5 07:31
DX: I48.91 Unspecified atrial fibrillation (principal)

== ENCOUNTER → 2018-08-26 | Outpatient (REF) ==
[2018-08-26 15:17] LABS: INR 1.58; PROTHROMBIN TIME 19.1 SECONDS (12.1-14.4)
== END ==
LOC: SKLAB5 10:06
DX: I48.91 Unspecified atrial fibrillation (principal)

== ENCOUNTER → 2018-08-28 | Outpatient (CLI) | payer MEDICARE ==
[2018-08-28 14:44] LABS: INR 1.93; PROTHROMBIN TIME 22.4 SECONDS (12.1-14.4)
== END ==
LOC: M LAB LCGH 10:07
DX: I48.91 Unspecified atrial fibrillation (principal)
CPT/HCPCS: 85610

== ENCOUNTER → 2018-09-01 | Outpatient (REF) | payer MEDICARE ==
[2018-09-01 08:14] LABS: INR 2.25; PROTHROMBIN TIME 25.3 SECONDS (12.1-14.4)
== END ==
LOC: SKLAB5 07:54
DX: I48.91 Unspecified atrial fibrillation (principal); Z79.01 Long term (current) use of anticoagulants

== ENCOUNTER → 2018-09-07 | Outpatient (REF) ==
[2018-09-07 13:10] LABS: INR 1.51; PROTHROMBIN TIME 18.4 SECONDS (12.1-14.4)
== END ==
LOC: SKLAB5 08:19
DX: I48.91 Unspecified atrial fibrillation (principal); Z79.01 Long term (current) use of anticoagulants

== ENCOUNTER → 2018-09-08 | Outpatient (REF) ==
[2018-09-08 08:34] LABS: INR 1.72; PROTHROMBIN TIME 20.5 SECONDS (12.1-14.4)
[2018-09-08 11:15] LABS: ESTIMATED AVERAGE GLUCOSE 194 MG/DL (60-110); HEMOGLOBIN A1c 8.4 %
== END ==
LOC: SKLAB5 07:49
DX: I48.91 Unspecified atrial fibrillation (principal); E11.9 Type 2 diabetes mellitus without complications; Z79.01 Long term (current) use of anticoagulants

== ENCOUNTER → 2018-10-04 | Outpatient (REF) | payer MEDICARE ==
[~2018-10-04] MED LIST changes: +ACET1TAB55 PO; +ACIDCHW PO; +AMLO10TA5 PO; +AMLO25TA PO; +ASPI1TAB PO; +ATOR40TA75 PO; +ATOR80TA59 PO; +BACI500O8 TOP; +CALC1CAP PO; +CILO100T PO; +CITA10TA5 PO; +CLON0.2T PO; +CLON0.3T PO; +CLONI1TA PO; +CLOTR1CR TOP; +COUM2.5T17 PO; +Calcium/Vitamin D PO; +DICL13PA TD; +DIPH50CA PO; +DOCU100C16 PO; +DOCU10CA PO; +DRIS50003 PO; +FERG1TAB PO; +FERR325T69 PO; +FERR32TA PO; +GABA-843 PO; +GABA-845 PO; +GLIP10TA6 PO; +GLUC4CHW19 PO; +HYDR10TAB PO; +HYDR1CRE TOP; +HYDR25TA PO; +INSUHUMDS SC; +INSULADS SC; -ISOVUE-300 61% 50ML VIAL (Q9967) As Ordered; +K-TA10TA2 PO; +KLOR10TA76 PO; +LIPI20TA PO; +LISI40TAB PO; +LOSA100T50 PO; +LOVE0.6I2 SC; +MAG400TA PO; +MAGN1TAB25 PO; +METF500T13 PO; +MILK120011 PO; +MIRA3350 PO; +MORP15TA2 PO; +MORP1TAB20 PO; +MSIR30TA PO; +NEUR300C PO; +NOVOINJ3 SC; +OSCA200T PO; +OXYC-423 PO; +OXYC-517 PO; +OXYC15TA76 PO; +OXYC1SOL3 PO; +PRAD150C PO; +PROT1TAB2 PO; +SENN8.6C PO; +TAMS0.4C2 PO; +TESS100C PO; +TRAZ25TA PO; +TUMS500C PO; +TYLE167L PO; +TYLE325T5 PO; +VITA100066 PO; +ZITHTAB PO; +ZOLP10TA2 PO
[2018-10-04 19:34] LABS: APPEARANCE, URINE HAZY (CLEAR); BACTERIA, URINE AUTO NEGATIVE (NEGATIVE); BILIRUBIN, URINE AUTO NEGATIVE (NEGATIVE); BLOOD, URINE BLOOD 3+ (NEGATIVE); COLOR, URINE YELLOW (YELLOW); GLUCOSE, URINE (UA) AUTO 3+ mg/dL (NEGATIVE); KETONE, URINE AUTO NEGATIVE (NEGATIVE); LEUKOCYTE ESTERASE, URINE AUTO NEGATIVE (NEGATIVE); NITRITE, URINE AUTO NEGATIVE (NEGATIVE); PROTEIN, URINE AUTO 3+ mg/dL (NEGATIVE); RBC, URINE AUTO TNTC /HPF (0-3); SPECIFIC GRAVITY URINE AUTO 1.016 (1.002-1.035); SQUAMOUS EPITHELIAL CELL UR AU 1 /HPF (0-6); UROBILINOGEN, URINE AUTO 0.2 mg/dL (0.0-2.0); WBC, URINE AUTO 31 /HPF (0-3)
== END ==
LOC: M LAB REF 15:07
PROVIDERS: ATTEND Internal Medicine Nephrology
DX: N39.0 Urinary tract infection, site not specified (principal)

== ENCOUNTER → 2018-10-13 | Outpatient (CLI) | payer MEDICARE ==
[~2018-10-13] MED LIST changes: +ISOVUE-370 76% 100ML VIAL (Q9967) As Ordered ONE
--- NOTE | 2018-10-13 10:39 | REP ---
CT abdomen and pelvis without and with IV contrast: History: Hematuria. Renal failure on dialysis. Comparison CT study July 31, 2018. CT contrast dose: 100 mL of intravenous Isovue 370 is administered. Findings: Preliminary digital revenue cycle administrator radiograph shows a normal bowel gas pattern. There is fairly heavy calcification of the vas deferens bilaterally. This finding has been correlated with diabetes. The lung bases are clear on axial CT images except for some minimal linear fibrosis on the left. No pleural effusion is seen. No pericardial effusion is seen. The liver and the spleen are normal in size and homogeneous in texture on pre and postcontrast images. No adrenal lesion is seen on either side. The pancreas is unremarkable. No abnormality is noted within the gallbladder. There is an intrarenal calculus at mid pole level in the left kidney unchanged from the comparison study. This calculus measures 9 mm in greatest diameter. There is no hydronephrosis on either side. Vascular calcification is noted in the right renal artery. Renal arteries and veins are bilaterally patent. No retroperitoneal mass or adenopathy is observed. Seminal vesicles, prostate and urinary bladder are unremarkable. Small and large bowel loops are normal. Delayed images show no evidence of filling defect in the collecting systems. The ureters are not well opacified and there is only a minimal amount of contrast opacified urine in the bladder consistent with the patients known renal insufficiency. Impression: Intrarenal calculus persist left mid kidney 9 mm in diameter. No hydronephrosis. Vas deferens calcification. Vascular calcification. Decreased renal function evident. Otherwise negative. Electronically Signed by Vicente Le MD 10/13/2018 06:02 P
== END ==
LOC: M RAD 08:20
PROVIDERS: ATTEND Internal Medicine Nephrology
DX: R31.9 Hematuria, unspecified (principal); N20.0 Calculus of kidney
CPT/HCPCS: 74178; Q9967

== ENCOUNTER → 2018-12-05 | Outpatient (REF) | payer MEDICARE ==
[~2018-12-05] MED LIST changes: +CITA20TA4 PO; +FLOM0.4C39 PO; +INSURSD SC; -ISOVUE-370 76% 100ML VIAL (Q9967) As Ordered ONE; +LANTINJ4 SC; +PANT40TA3 PO; +SANT250O8 TOP; +SODI200S PO; +TRAZ-186 PO; +VITA50005 PO
[2018-12-05 17:59] LABS: APPEARANCE, URINE HAZY (CLEAR); BACTERIA, URINE AUTO 1+ (NEGATIVE); BILIRUBIN, URINE AUTO NEGATIVE (NEGATIVE); BLOOD, URINE BLOOD 1+ (NEGATIVE); COLOR, URINE YELLOW (YELLOW); GLUCOSE, URINE (UA) AUTO 3+ mg/dL (NEGATIVE); KETONE, URINE AUTO NEGATIVE (NEGATIVE); LEUKOCYTE ESTERASE, URINE AUTO NEGATIVE (NEGATIVE); MUCUS, URINE SMALL (NEGATIVE); NITRITE, URINE AUTO NEGATIVE (NEGATIVE); PROTEIN, URINE AUTO 3+ mg/dL (NEGATIVE); RBC, URINE AUTO 15 /HPF (0-3); SPECIFIC GRAVITY URINE AUTO 1.016 (1.002-1.035); SQUAMOUS EPITHELIAL CELL UR AU 0 /HPF (0-6); UROBILINOGEN, URINE AUTO 0.2 mg/dL (0.0-2.0); WBC, URINE AUTO 5 /HPF (0-3)
== END ==
LOC: M SMT 17:21
PROVIDERS: ATTEND Nurse Practitioner Family
DX: Z01.818 Encounter for other preprocedural examination (principal); N20.0 Calculus of kidney

== ENCOUNTER 2018-12-08 10:53 | Day surgery (SDC) | payer MEDICARE, OTHER ==
[~2018-12-08] VITALS: Ht 185.4 cm; Wt 102.2 kg
[~2018-12-08 10:53] MED LIST changes: +NS 1,000 ML IV SCH
[2018-12-08] MEDS ORDERED: LANTINJ4 SC (11:28)
[2018-12-08 11:36] LABS: INR 1.09; PROTHROMBIN TIME 14.3 SECONDS (12.1-14.4)
[2018-12-08] MEDS ORDERED: MIDAZOLAM INJ 2 MG/2 ML VIAL (J2250) As Ordered ONE (12:59)
[2018-12-08] MEDS ORDERED: fentaNYL 100 MCG/2 ML INJECTION (J3010) As Ordered ONE ×2 (12:59→15:59)
[2018-12-08] MEDS ORDERED: dexameTHASONE 4 MG/ML 1ML VIAL (J1100) As Ordered ONE (12:59)
[2018-12-08] MEDS ORDERED: ONDANSETRON 4MG/2ML VIAL (J2405) As Ordered ONE (12:59)
[2018-12-08] MEDS ORDERED: PROPOFOL 200 MG/20 ML VIAL As Ordered ONE (12:59)
[2018-12-08] MEDS ORDERED: LIDOCAINE 2% INJ 100 MG/5 ML SDV (FOR ANES.) As Ordered ONE (12:59)
[2018-12-08] MEDS ORDERED: CONRAY-60 60% 50ML VIAL (Q9961) As Ordered ONE (13:03)
[2018-12-08] MEDS ORDERED: LIDOCAINE 5% OINT 30 GM As Ordered ONE (13:57)
[2018-12-08] MEDS ORDERED: GLYCOPYRROLATE INJ 0.2 MG/ML 2 ML VIAL As Ordered ONE (13:59)
[2018-12-08] MEDS ORDERED: NEOSTIGMINE 10 MG/10 ML VIAL (J2710) As Ordered ONE (13:59)
[2018-12-08] MEDS ORDERED: ROCURONIUM BROMIDE 50 MG/5 ML VIAL As Ordered ONE (13:59)
[2018-12-08] MEDS ORDERED: ePHEDrine SULFATE 25 MG/5 ML(5MG/ML) SYRINGE As Ordered ONE (14:23)
[2018-12-08] MEDS ORDERED: ONDANSETRON 4MG/2ML VIAL (J2405) IV PRN (15:30)
[2018-12-08] MEDS ORDERED: LR 1,000 ML IV SCH (15:30)
[2018-12-08] MEDS ORDERED: PERCOCET 5MG/325MG TAB PO PRN ×2 (15:30)
[2018-12-08] MEDS: fentaNYL 100 MCG/2 ML INJECTION (J3010) IV PRN ×4 (16:03→16:18)
[2018-12-08] MEDS ORDERED: KETOROLAC 30 MG/ML VIAL (J1885) As Ordered ONE (16:15)
--- NOTE | 2018-12-08 16:23 | RO ---
DATE OF PROCEDURE: 12/08/2018 PREOPERATIVE DIAGNOSIS: Gross hematuria, left kidney stone. POSTOPERATIVE DIAGNOSIS: Gross hematuria, left kidney stone. OPERATIVE PROCEDURE: Cystoscopy, left ureteroscopy with laser lithotripsy and basket extraction of stones, right ureteroscopy, bilateral retrograde pyelograms with intraoperative interpretation of images, bilateral ureteral stent placement. SURGEON: Leobardo Archer MD B2B SALES PROFESSIONAL: None ANESTHESIA: Monitored anesthesia care (MAC). OPERATIVE INDICATIONS: This is a 63-year-old male who has been having gross hematuria who was found to have an approximately 1 cm left kidney stone on preoperative CT scan. He was brought to the operating room today to treat the kidney stone and investigate the cause of the hematuria. DESCRIPTION OF PROCEDURE: The patient was brought to the operating room and general anesthesia was induced. Prophylactic antibiotics were infused. He was then placed in the dorsal lithotomy position and prepped and draped in the usual sterile fashion. A rigid cystoscope was inserted into urethral meatus and advanced to the bladder. Once inside the bladder, the bladder was thoroughly examined and the only abnormality seen within the bladder was blood effluxing from the right ureteral orifice raising concern for a possible lesion in the right collecting system. At this point, a wire was advanced up the left collecting system. I then advanced the ureteral access sheath up the left collecting system. I went up the access sheath with a flexible ureteroscope and inside midpole calyx the large kidney stone was seen. Due to the location of the stone, it would have been very hard to laser it right there and therefore the stone was grasped with basket and moved to different location inside the kidney. At this point, the stone was fragmented into several smaller pieces using 200 Micron laser fiber. All the stone fragments were then removed using the basket. Once satisfied all the larger stone fragments had been removed, a retrograde pyelogram was performed and was notable for mild left hydronephrosis, with no extravasation. At this point, I withdrew the ureteroscope along with the ureteral access sheath and no stones were seen within the left ureter. I then utilized the wire to advance a #6-Swedish x 22-32 cm JJ ureteral stent up the left collecting system. The wire was then removed and there were adequate curls of the stent in the left renal pelvis and in the bladder. I then advanced the wire up the right collecting system. At this point, I went in with a short semirigid ureteroscope and tried to advance it up the right collecting system but there was narrowing in the distal ureter that would not permit this. A retrograde pyelogram was performed and I could not discern any filling defects. Next, I tried to utilize the wire to advance a ureteral access sheath up the right collecting system and it too would not go past the distal ureter. This did cause mild trauma to the distal ureter. Because of this, I was not able to evaluate the entire ureter and kidney with ureteroscopy. At this point, I advanced an open ureteral catheter over the wire into the right renal pelvis and I utilized this to obtain a renal pelvic wash to send to cytology. Once that was done another retrograde pyelogram was performed notable for moderate right hydronephrosis, no extravasation. Once again there were no filling defects seen within the right renal pelvis. I then advanced the wire back up the right collecting system and removed the open ended ureteral catheter. I then utilized that wire to advance a #6-Swedish x 22- 32 cm JJ ureteral stent up the right collecting system. The wire was then removed and there were adequate curls of the stent in the right renal pelvis and in the bladder. The bladder was emptied of all fluid and this marked the conclusion of the procedure. The patient was then taken out of the dorsal lithotomy position, awakened from anesthesia and transported to the recovery room in stable condition. ESTIMATED BLOOD LOSS: 5 mL. COMPLICATIONS: None. SPECIMENS: Kidney stone fragments, right renal pelvis washing for cytology. PLAN: The patient will be seen in the clinic in a few weeks for postoperative visit and to discuss the need to bring him back to the operating room later on to further evaluate the right collecting system with ureteroscopy. We will do this after a few weeks to allow the stent to passively dilate the right ureter. PAT
[2018-12-08] MEDS ORDERED: KETOROLAC 30 MG/ML VIAL (J1885) IV PRN (17:15)
[2018-12-08 18:25] VITALS: BP 147/67
--- NOTE | 2018-12-13 10:48 | REP ---
RETROGRADE PYELOGRAM, FIVE VIEWS: HISTORY: Kidney stone. Five portable radiographs were obtained with a C-arm. A small amount of contrast material is present in the renal collecting systems. Bilateral ureteral stents are present. Fluoroscopic time: 53 seconds. IMPRESSION: Retrograde pyelogram as described. Electronically Signed by Constantin Mehta MD 12/13/2018 10:59 A
== END 2018-12-08 18:30 | disposition home or self-care (01) ==
LOC: M SDC 10:53
PROVIDERS: ATTEND Urology
DX: N20.0 Calculus of kidney (principal); R31.0 Gross hematuria; I10 Essential (primary) hypertension; E78.5 Hyperlipidemia, unspecified; E11.9 Type 2 diabetes mellitus without complications; G47.30 Sleep apnea, unspecified; D64.9 Anemia, unspecified; Z79.899 Other long term (current) drug therapy; Z79.01 Long term (current) use of anticoagulants; Z79.4 Long term (current) use of insulin; D50.9 Iron deficiency anemia, unspecified; Z87.891 Personal history of nicotine dependence; N40.0 Benign prostatic hyperplasia without lower urinary tract symptoms
CPT/HCPCS: 36415; 52332; 52356; 74420; 82360; 84132; 85610; 88108; 88300; C1769; C1894; C2617; J0690; J1100; J1885; J2250; J2405; J2710; J3010; Q9961

== ENCOUNTER → 2019-01-13 | Outpatient (REF) | payer MEDICARE ==
[~2019-01-13] MED LIST changes: -ASPI1TAB PO; +ASPI81TA26 PO; -CITA20TA4 PO; +CITA20TA6 PO; +CLOT1CRE27 TOP; -CLOTR1CR TOP; -FERG1TAB PO; +FERG27TA PO; +HYDR-2773 PO; -HYDR10TAB PO; +LIDO2.5C15 EX; +LISI40TA52 PO; -LISI40TAB PO; -MAGN1TAB25 PO; +MAGN1TAB26 PO; -NS 1,000 ML IV SCH; +OXYC15TA66 PO; -PRAD150C PO; +PRAD150C6 PO; +PROBCAP14 PO; +SENO8.6T10 PO; +TRAZ1TAB6 PO
[2019-01-13 18:32] LABS: APPEARANCE, URINE CLOUDY (CLEAR); BACTERIA, URINE AUTO 1+ (NEGATIVE); BILIRUBIN, URINE AUTO NEGATIVE (NEGATIVE); BLOOD, URINE BLOOD 3+ (NEGATIVE); COLOR, URINE AMBER (YELLOW); GLUCOSE, URINE (UA) AUTO 1+ mg/dL (NEGATIVE); KETONE, URINE AUTO NEGATIVE (NEGATIVE); LEUKOCYTE ESTERASE, URINE AUTO 2+ (NEGATIVE); NITRITE, URINE AUTO NEGATIVE (NEGATIVE); PROTEIN, URINE AUTO 2+ mg/dL (NEGATIVE); RBC, URINE AUTO TNTC /HPF (0-3); SPECIFIC GRAVITY URINE AUTO 1.018 (1.002-1.035); SQUAMOUS EPITHELIAL CELL UR AU 1 /HPF (0-6); UROBILINOGEN, URINE AUTO 0.2 mg/dL (0.0-2.0); WBC, URINE AUTO TNTC /HPF (0-3)
== END ==
LOC: M SMT 16:48
PROVIDERS: ATTEND Nurse Practitioner Family
DX: R31.0 Gross hematuria (principal); Z01.818 Encounter for other preprocedural examination

== ENCOUNTER 2019-01-19 08:10 | Day surgery (SDC) | payer MEDICARE ==
[~2019-01-19] VITALS: Ht 185.4 cm; Wt 95.6 kg
[~2019-01-19 08:10] MED LIST changes: +LR 1,000 ML IV ONE; +TRAZ1TAB11 PO; -TRAZ25TA PO
[2019-01-19 09:17] LABS: INR 1.17; PROTHROMBIN TIME 15.1 SECONDS (12.1-14.4)
[2019-01-19] MEDS ORDERED: dexameTHASONE 4 MG/ML 1ML VIAL (J1100) As Ordered ONE (10:40)
[2019-01-19] MEDS ORDERED: LIDOCAINE 2% INJ 100 MG/5 ML SDV (FOR ANES.) As Ordered ONE (10:40)
[2019-01-19] MEDS ORDERED: ONDANSETRON 4MG/2ML VIAL (J2405) As Ordered ONE (10:40)
[2019-01-19] MEDS ORDERED: PROPOFOL 200 MG/20 ML VIAL As Ordered ONE (10:40)
[2019-01-19] MEDS ORDERED: MIDAZOLAM INJ 2 MG/2 ML VIAL (J2250) As Ordered ONE (10:41)
[2019-01-19] MEDS ORDERED: fentaNYL 100 MCG/2 ML INJECTION (J3010) As Ordered ONE (10:41)
[2019-01-19] MEDS ORDERED: D5W/0.2% SODIUM CHLORIDE 1,000 ML IV ONE (11:30)
[2019-01-19] MEDS ORDERED: CONRAY-60 60% 50ML VIAL (Q9961) As Ordered ONE (12:42)
[2019-01-19] MEDS ORDERED: GLYCOPYRROLATE INJ 0.2 MG/ML 2 ML VIAL As Ordered ONE (13:10)
[2019-01-19] MEDS ORDERED: ePHEDrine SULFATE 25 MG/5 ML(5MG/ML) SYRINGE As Ordered ONE (13:22)
[2019-01-19] MEDS ORDERED: PHENYLephrine HCL 500 MCG/5 ML (100MCG/ML) SYRINGE (J2370) As Ordered ONE (13:45)
--- NOTE | 2019-01-19 14:13 | REP ---
RETROGRADE PYELOGRAM: TWO VIEWS. HISTORY: Hematuria. FINDINGS: A sequence of two last-image hold fluoroscopically obtained spot radiographs of the abdomen document ureteral cannulation, contrast injection, and double pigtail stent placement. No laterality markers are visible. 13 seconds of fluoroscopy time is reported. Electronically Signed by Vicente Le MD 01/19/2019 04:23 P
[2019-01-19] MEDS ORDERED: PERCOCET 5MG/325MG TAB PO PRN (14:15)
[2019-01-19] MEDS ORDERED: ACETAMINOPHEN TAB 650MG DOSE (2X325MG) PO PRN (14:15)
[2019-01-19] MEDS ORDERED: ONDANSETRON 4MG/2ML VIAL (J2405) IV PRN (14:15)
[2019-01-19] MEDS ORDERED: fentaNYL 100 MCG/2 ML INJECTION (J3010) IV PRN (14:15)
[2019-01-19 15:14] VITALS: BP 169/76
--- NOTE | 2019-01-20 17:29 | RO ---
DATE OF PROCEDURE: 01/19/2019 PREPROCEDURE DIAGNOSIS: Gross hematuria. POSTPROCEDURE DIAGNOSIS: Gross hematuria. PROCEDURE: Cystoscopy, right ureteroscopy, right retrograde pyelogram with intraoperative interpretation of images, right ureteral stent exchange, left ureteral stent removal. SURGEON: Leobardo Archer MD DOOR CUTTER: None. ANESTHESIA: General. OPERATIVE INDICATIONS: This is a 63-year-old male who was brought to the operating room approximately 1 month ago for left kidney stone removal. At the time, he was found to have blood emanating from the right ureteral orifice. I could not get a ureteroscope up the right collecting system at that time, and, therefore, I left the stent with the plan for it to passively dilate the right collecting system, allowing me to take another look in. He was brought back to the operating room today for me to take a look into the right kidney. DESCRIPTION OF PROCEDURE: The patient was brought to the operating room and general anesthesia was induced. Prophylactic antibiotics were infused. He was then placed in the dorsal lithotomy position and prepped and draped in the usual sterile fashion. A rigid cystoscope was then inserted into the urethral meatus and advanced into the bladder. Once inside the bladder, the previously placed stents were seen. The left ureteral stent was then grasped and withdrawn until it was completely removed intact. I then went back in and grabbed the right ureteral stent and withdrew it until the distal end was seen protruding from the urethral meatus. I then advanced a wire up the right collecting system and then completely removed the stent. Once the wire was advanced up, I then went up with a short semirigid uteroscope, and the distal to mid ureter was evaluated both appeared unremarkable. There were no tumors seen or other lesions. There were no stones seen. At this point, I removed the short semi-rigid ureteroscope and advanced the ureteral access sheath up the right collecting system. I then went up the access sheath and evaluated the remainder of the ureter as well as the kidney. No tumors were seen. Of note, there were very tiny stone fragments seen. I did try to basket some of these, but they were so soft that they just crushed when I closed the basket. I, therefore, did not remove any. The remainder of the kidney looked unremarkable. A retrograde pyelogram was then performed, and it was negative for hydronephrosis or extravasation. I then withdrew the ureteroscope along with the access sheath and examined the ureter again, and once again, no abnormalities were seen other than what appeared to be minor trauma to the distal ureter from advancing the ureteral access sheath. Because of this, the decision was made to leave a stent. At this point, the previously placed wire was utilized to advance a 6-Ghanaian x 22-32 cm JJ ureteral stent up into the right collecting system. The wire was then removed, and there were adequate curls of the stent in the right renal pelvis and in the bladder. The bladder was then emptied of all fluids, and this marked the conclusion of the procedure. The patient was then taken out of the dorsal lithotomy position, awakened from anesthesia and transported to the recovery room in stable condition. Estimated blood loss: 5 mL. Complications: None. Specimens: None. PLAN: The patient will followup in the clinic in a few weeks for stent removal. PAT
== END 2019-01-19 15:14 | disposition home or self-care (01) ==
LOC: M SDC 08:10
PROVIDERS: ATTEND Urology
DX: R31.0 Gross hematuria (principal); I12.0 Hypertensive chronic kidney disease with stage 5 chronic kidney disease or end stage renal disease; E11.40 Type 2 diabetes mellitus with diabetic neuropathy, unspecified; E11.22 Type 2 diabetes mellitus with diabetic chronic kidney disease; I48.91 Unspecified atrial fibrillation; N25.81 Secondary hyperparathyroidism of renal origin; R94.5 Abnormal results of liver function studies; I73.9 Peripheral vascular disease, unspecified; F32.9 Major depressive disorder, single episode, unspecified; N52.9 Male erectile dysfunction, unspecified; E78.00 Pure hypercholesterolemia, unspecified; K21.9 Gastro-esophageal reflux disease without esophagitis; M54.5 Low back pain; G89.29 Other chronic pain; N18.6 End stage renal disease; I69.998 Other sequelae following unspecified cerebrovascular disease; J44.9 Chronic obstructive pulmonary disease, unspecified; N40.0 Benign prostatic hyperplasia without lower urinary tract symptoms; E55.9 Vitamin D deficiency, unspecified; D64.9 Anemia, unspecified; K59.00 Constipation, unspecified; G47.00 Insomnia, unspecified; G47.30 Sleep apnea, unspecified; R80.9 Proteinuria, unspecified; Z79.899 Other long term (current) drug therapy; Z79.4 Long term (current) use of insulin; Z86.718 Personal history of other venous thrombosis and embolism; Z99.2 Dependence on renal dialysis; Z87.891 Personal history of nicotine dependence; Z96.1 Presence of intraocular lens; Z98.41 Cataract extraction status, right eye; Z98.42 Cataract extraction status, left eye
CPT/HCPCS: 36415; 52310; 52332; 74420; 84132; 85610; C1769; C1894; C2617; J0690; J1100; J2250; J2370; J2405; J3010; Q9961

== ENCOUNTER 2019-01-31 21:24 | Emergency (ER) | payer MEDICARE ==
[~2019-01-31] VITALS: Ht 185.4 cm; Wt 102.3 kg
[~2019-01-31 21:24] MED LIST changes: -LR 1,000 ML IV ONE; -TRAZ1TAB11 PO; +TRAZ25TA PO
--- NOTE | 2019-01-31 23:20 | REPVR ---
EXAM: CT Head Without Contrast EXAM DATE/TIME: 01/31/2019 10:49 PM CLINICAL HISTORY: 63 years old, male; Injury or trauma; Fall; Initial encounter; Blunt trauma (contusions or hematomas) TECHNIQUE: Imaging protocol: Axial computed tomography images of the head/brain without contrast. Radiation optimization: All CT scans at this facility use at least one of these dose optimization techniques: automated exposure control; mA and/or kV adjustment per patient size (includes targeted exams where dose is matched to clinical indication); or iterative reconstruction. COMPARISON: CT Head without contrast 08/03/2018 3:56 PM FINDINGS: Limitations: Examination is limited by motion artifact. Brain: Mild hypodensities in the periventricular white matter which are consistent with chronic small vessel ischemic disease. No acute mass effect. No acute intracranial hemorrhage. Diffuse cerebral atrophy. Ventricles: Normal. No ventriculomegaly. Bones/joints: Unremarkable. No acute fracture. Sinuses: Visualized sinuses are unremarkable. No acute sinusitis. Mastoid air cells: Visualized mastoid air cells are unremarkable. No mastoid effusion. Soft tissues: Unremarkable. Vasculature: There is atherosclerotic calcification of the cerebral arteries. IMPRESSION: 1. No acute intracranial hemorrhage. 2. Mild hypodensities in the periventricular white matter which are consistent with chronic small vessel ischemic disease. Electronically signed by: Héctor Carbajal On 01/31/2019 23:20:05 PM
--- NOTE | 2019-01-31 23:26 | REPVR ---
EXAM: CT Cervical Spine Without Contrast EXAM DATE/TIME: 01/31/2019 10:49 PM CLINICAL HISTORY: 63 years old, male; Injury or trauma; Fall; Initial encounter; Blunt trauma TECHNIQUE: Imaging protocol: Axial computed tomography images of the cervical spine without contrast. Coronal and sagittal reformatted images were created and reviewed. Radiation optimization: All CT scans at this facility use at least one of these dose optimization techniques: automated exposure control; mA and/or kV adjustment per patient size (includes targeted exams where dose is matched to clinical indication); or iterative reconstruction. COMPARISON: No relevant prior studies available. FINDINGS: Limitations: Examination is limited by motion artifact. C7-T1 level is not imaged. Vertebrae: Status post anterior C6-C7 fusion. Hardware is not fully imaged. No acute fracture. No subluxation. Multilevel: Chondrocalcinosis of the discs are. C1-C2: Joint space narrowing and marginal osteophytes changes at the atlantoodontoid joint. Partially calcified pannus posterior to the dens measuring 4 mm thick. No significant stenosis. C2-C3: No disc herniation. No spinal stenosis. Severe right neural foraminal narrowing. Moderate left neural foraminal narrowing. C3-C4: 5 mm diffuse disc bulge. Severe spinal stenosis. Spinal canal measures 6 mm in AP diameter. Severe right neural foraminal narrowing. Severe left neural foraminal narrowing. C4-C5: 3 mm diffuse disc bulge. Mild spinal stenosis. Severe right neural foraminal narrowing. Severe left neural foraminal narrowing. C5-C6: 3 mm diffuse disc bulge. Mild spinal stenosis. Severe right neural foraminal narrowing. Moderate left neural foraminal narrowing. C6-C7: No disc herniation. No spinal stenosis. Moderate right neural foraminal narrowing. Moderate left neural foraminal narrowing. C7-T1: Not imaged. Soft tissues: Unremarkable. Vasculature: There is moderate atherosclerotic disease at the origin of the internal carotid arteries bilaterally. Lungs: Lung apices are normal. IMPRESSION: 1. Incomplete evaluation of C7-T1. 2. No acute fracture. 3. Degenerative changes as described. 4. Specifically, severe spinal stenosis at C3-C4. 5. Status post anterior C6-C7 fusion. Electronically signed by: Héctor Carbajal On 01/31/2019 23:26:24 PM
[2019-02-01 00:54] VITALS: BP 161/67
--- NOTE | 2019-02-01 08:26 | REP ---
Left rib series: Four views. Comparison chest x-rays from August 01, 2018. History: Injury in a fall. Findings: Four views of the left hemithorax are presented. The patient is status post lower cervical spine fusion plating. There is plate-like atelectasis in the left base. There is no visible left-sided pneumothorax. The thoracic aorta is somewhat tortuous. There is a nondisplaced oblique fracture through the lateral aspect of the left 6th rib. No other rib fractures seen. Impression: Left lateral 6th rib fracture. Electronically Signed by Vicente Le MD 02/01/2019 03:36 P
--- NOTE | 2019-02-07 07:35 | ED PDOC ---
Post-Departure Follow-Up certified letter sent to pt re formal read of ct c spine. when pt calls back obt ain pcp name and fax for fu Leonard Mac MD February 07, 2019 07:35
== END 2019-02-01 01:34 | disposition home or self-care (01) ==
LOC: M ED 21:24
DX: S22.32XA Fracture of one rib, left side, initial encounter for closed fracture (principal); S20.212A Contusion of left front wall of thorax, initial encounter; W07.XXXA Fall from chair, initial encounter; Y92.000 Kitchen of unspecified non-institutional (private) residence as the place of occurrence of the external cause; Y93.89 Activity, other specified; Y99.8 Other external cause status; Z98.1 Arthrodesis status; M48.02 Spinal stenosis, cervical region; R93.0 Abnormal findings on diagnostic imaging of skull and head, not elsewhere classified; Z79.01 Long term (current) use of anticoagulants; Z79.4 Long term (current) use of insulin; Z79.891 Long term (current) use of opiate analgesic; Z79.899 Other long term (current) drug therapy

== ENCOUNTER → 2019-03-10 | Outpatient (CLI) | payer MEDICARE ==
[~2019-03-10] MED LIST changes: +TRAZ1TAB11 PO; -TRAZ25TA PO
--- NOTE | 2019-03-10 13:48 | REP ---
Right lower extremity Duplex Doppler venous ultrasound: Real time compression and duplex Doppler interrogation of the right lower extremity deep venous system is performed. The right common femoral, superficial femoral and popliteal veins are fully compressible with transducer pressure and demonstrate normal spontaneous and phasic flow, without evidence of deep venous thrombosis. Impression: No evidence of deep venous thrombosis of the right lower extremity femoral popliteal venous system. Electronically Signed by Prakash Chavez MD 03/10/2019 01:40 P
== END ==
LOC: M RAD 13:01
PROVIDERS: ATTEND Internal Medicine Nephrology
DX: Z86.718 Personal history of other venous thrombosis and embolism (principal)

== ENCOUNTER 2019-05-16 04:06 | Emergency (ER) | payer MEDICARE ==
[~2019-05-16 04:06] MED LIST changes: -LIDO2.5C15 EX; +LIDO2.5C15 TOP
[2019-05-16 04:36] LABS: BASO % 0.5 % (0.0-1.0); EOS # 0.2 10^3/uL (0.0-0.50); EOS % 2.2 % (0.0-3.0); HEMATOCRIT 34.2 % (42.0-52.0); HEMOGLOBIN 11.5 g/dl (13.5-17.5); LYMPH # 1.4 10^3/uL (1.5-4.5); LYMPH % 16.6 % (24.0-44.0); MEAN CORPUSCULAR HEMOGLOBIN 29.3 pg (27.0-33.0); MEAN CORPUSCULAR HGB CONC 33.6 g/dl (32.0-36.5); MEAN CORPUSCULAR VOLUME 87.2 fl (80.0-96.0); MONO # 0.8 10^3/uL (0.0-0.8); MONO % 9.9 % (0.0-5.0); NEUTROPHILS # 5.8 10^3/uL (1.8-7.7); NEUTROPHILS % 70.4 % (36.0-66.0); PLATELET COUNT, AUTOMATED 249 10^3/uL (150-450); RED BLOOD COUNT 3.92 10^6/uL (4.30-6.10); WHITE BLOOD COUNT 8.2 10^3/uL (4.0-10.0)
[2019-05-16 04:46] LABS: INR 2.05; PROTHROMBIN TIME 22.9 SECONDS (11.8-14.0)
[2019-05-16 05:10] LABS: ALBUMIN 3.2 GM/DL (3.2-5.2); BILIRUBIN,TOTAL 0.8 MG/DL (0.2-1.0); CK-MB VALUE MASS 4.4 NG/ML (<3.6); CREATININE FOR GFR 4.18 MG/DL (0.70-1.30); GLOMERULAR FILTRATION RATE 15.4 (>49); MB/CK RELATIVE INDEX 1.71 (< OR =4); POTASSIUM SERUM 4.3 MEQ/L (3.5-5.1); TOTAL PROTEIN 7.2 GM/DL (6.4-8.2); TROPONIN I 0.03 NG/ML (< 0.10)
--- NOTE | 2019-05-16 07:18 | REP ---
Portable chest, 04:23 a.m., single AP view with the patient upright: Comparison is 08/04/2016. There is diffuse bilateral interstitial coarsening as an interval change compatible with interstitial infiltrates. There are no pleural effusions. Cardiac size is upper normal. The helio and mediastinum are unremarkable. There is a cervical spine stabilization plate, unchanged. The previous right IJ dual lumen central venous catheter has been removed. Impression: Diffuse bilateral interstitial coarsening compatible with interstitial infiltrates. Electronically Signed by Prakash Loco MD 05/16/2019 07:10 A
[2019-05-16] MEDS ORDERED: ASPIRIN 81 MG CHEW TABLET PO ONE (08:45)
[2019-05-16] MEDS: NITROGLYCERIN 0.4 MG SUBL TABLET SL PRN ×3 (08:59→09:21)
[2019-05-16 09:21] VITALS: BP 164/73
--- NOTE | 2019-05-16 10:37 | ECGEPIP ---
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
--- NOTE | 2019-05-16 10:44 | ECGEPIP ---
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
[2019-05-16 10:45] LABS: CK-MB VALUE MASS 4.3 NG/ML (<3.6); MB/CK RELATIVE INDEX 2.13 (< OR =4); TROPONIN I 0.03 NG/ML (< 0.10)
[2019-05-16 12:22] VITALS: BP 170/72
--- NOTE | 2019-05-17 13:20 | ED PDOC ---
Post-Departure Follow-Up dr sujey trivedi faxed formal report of cxr for fu vasug Leonard Ray MD May 17, 2019 13:20
== END 2019-05-16 12:42 | disposition home or self-care (01) ==
LOC: M ED 04:06
DX: R07.9 Chest pain, unspecified (principal); I12.0 Hypertensive chronic kidney disease with stage 5 chronic kidney disease or end stage renal disease; E78.5 Hyperlipidemia, unspecified; E11.22 Type 2 diabetes mellitus with diabetic chronic kidney disease; N18.6 End stage renal disease; Z99.2 Dependence on renal dialysis; I73.9 Peripheral vascular disease, unspecified; G47.33 Obstructive sleep apnea (adult) (pediatric); Z86.73 Personal history of transient ischemic attack (TIA), and cerebral infarction without residual deficits; Z86.711 Personal history of pulmonary embolism; Z87.891 Personal history of nicotine dependence; Z79.899 Other long term (current) drug therapy; Z79.01 Long term (current) use of anticoagulants; Z79.4 Long term (current) use of insulin

== ENCOUNTER → 2019-05-23 | Outpatient (CLI) | payer MEDICARE ==
[~2019-05-23] MED LIST changes: +WARF-18 PO
--- NOTE | 2019-05-23 10:23 | REP ---
Bilateral lower extremity arterial duplex ultrasound: Right lower extremity: Brachial artery peak systole: AVF Dorsalis pedis peak systole: 160 mmHg COMM[employer]CIAL ACCOUNT OFFICER peak systole: 165 mmHg VICKI: 1.1 Peak Systolic Phasicity Velocity [employer]OR [employer]PERATIONS FOR [employer] 206 biphasic Profunda 224 biphasic SFA prox 287 biphasic SFA mid 137 biphasic SFA dist -- -- Pop 50.2 biphasic JONEL prox 66.1 biphasic Tib/P tr 60.6 biphasic COMM[employer]CIAL [employer]OUNT OFFICER pr 45.0 biphasic COMMERCIAL [employer]OUNT OFFICER dst 65.9 biphasic JONEL dst 12.6 biphasic Left lower extremity: Brachial artery peak systole: 140 mmHg. Dorsalis pedis peak systole: 130 mmHg. COMMERCIAL [employer]OUNT OFFICER peak systole: 100 mmHg. BERNICE: 0.9. Peak Systolic Phasicity Velocity [employer]ATIONS [employer] 260 C biphasic Profunda 209 biphasic SFA prox 188 biphasic SFA mid 210 monophasic SFA dist 235 biphasic Pop 124 monophasic JONEL prox 102 monophasic Tib/P tr 430 monophasic COMMERCIAL ACCOUNT OFFICER pr 34.7 biphasic COMMERCIAL ACCOUNT OFFICER dst 124 monophasic JONEL dst 90.9 monophasic There is a right lower extremity bypass graft. There is increased flow velocity at the proximal anastomosis. 257 cm/sec. There are multiple focal stenoses in the femoral artery, proximal to distal. The right and distal 88th flow is no longer reversed. In the left lower extremity, there are multiple areas of stenosis. The most significant stenosis is in tibial/peroneal trunk. Electronically Signed by Prakash Loco MD 05/23/2019 10:14 A
== END ==
LOC: M RAD 07:33
PROVIDERS: ATTEND Surgery Vascular Surgery
DX: I73.9 Peripheral vascular disease, unspecified (principal); Z95.1 Presence of aortocoronary bypass graft

== ENCOUNTER 2019-05-30 08:25 | Inpatient (IN) | payer MEDICARE ==
[~2019-05-30] VITALS: Ht 185.4 cm; Wt 97.0 kg
[~2019-05-30 08:25] MED LIST changes: +BUPIVACAINE HCL 0.5% 10 ML VIAL As Ordered ONE; +HEPARIN 1,000 UNITS/ML 10ML VIAL (FOR RADIOLOGY& DIALYSIS ONLY) As Ordered ONE; +ISOVUE-300 61% 50ML VIAL (Q9967) As Ordered ONE; +LIDOCAINE 2% MDV 20 ML VIAL As Ordered ONE; +MIDAZOLAM INJ 2 MG/2 ML VIAL (J2250) As Ordered ONE; +PROTAMINE SULF INJ 50 MG/5 ML VIAL (J2720) As Ordered ONE; -WARF-18 PO; +diphenhydrAMINE INJ 50MG/ML VIAL (J1200) As Ordered ONE; +fentaNYL 100 MCG/2 ML INJECTION (J3010) As Ordered ONE
--- NOTE | 2019-05-30 11:05 | CR.PDOC ---
General Date of Consultation: May 30, [address] Currie HPI: 64year oldM with a past medical history significant for ESRD, on HD as per Nephrology, per pt recently being evaluated for possible renal transplant. The pt had been scheduled today as outpt for RLE angiogram however the pt was noted to have non healing wet gangrenous wounds of toes 1-4 of the Left foot. The pt's admission is arranged with Hospitalist for IV antibiotics and plan for LLE angiogram with possible intervention 05/31/19. The pt is currently resting comfortably on stretcher in IR S/P angiogram of RLE. PMHx: PAD RLE angiogram today. No intervention done. ESRD HD as per Nephrology H/O renal stones. H/O DVT IDDM HTN depression Neuropathy anemia HAO PSHX: cystoscopy colonoscopy Rt AVF SOCHX: Tobacco use: denies ETOH: denies FAMHX: CAD, HTN ROS: As noted in HPI, otherwise 11pt ROS of systems reviewed and remarkable only for wounds RLE. PE: GEN: 64yoM. No acute distress. Easily awakens to voice. HEENT: Normocephalic, atraumatic.Moist mucous membranes. CHEST: Regular rate and rhythm, +S1, +S2 LUNGS: Clear to auscultation bilaterally. ABD: Round, soft, non-tender, non-distended. EXT: The Lt foot is noted to have gangrenous wounds to the Great toe, toes 2-4. Dressing is applied. NEURO: Alert and oriented x 3. No focal deficits appreciated. A&P: 1. Lt foot wounds. Dry dressing is applied. Plan is for admission to the Hospitalist. Spoke with Dr Ramirez. IV antibiotics as per Hospitalist. Plan for LLE angiogram 05/31/19 with possible intervention to facilitate healing. May possibly require Lt foot debridement. Pt states he follows with Podiatry at the [facility] in [place]. 2. PAD. S/P angiogram RLE this AM. No intervention required as per Dr Currie. Report pending. The pt was noted to have non healing wounds and gangrenous wounds of the Left toes 1-4. Plan is for angiogram LLE 05/31 with plan for intervention as per Dr Currie. 3. ESRD/AVF RUE. HD MWF as per Nephrology. I spoke with Dr Foss who is aware of Pt's admission, last HD 05/29/19. I have relayed plan for angio 05/31/19 AM, plan for HD after angiogram 05/31/19. 4. H/O DVT. Pt is on Coumadin. Admission labs pending. MED REC PENDING. Vital Signs/I&O Vital Signs Date Time Temp Pulse Resp B/P (MAP) Pulse Ox O2 Delivery O2 Flow Rate FiO2 05/30/19 10:20 58 18 91 2 05/30/19 08:46 98.3 Laboratory Data Labs 24H admission labs pending Allergies Coded Allergies: No Known Allergies (Unverified , 12/08/18) Home Medications Scheduled Atorvastatin Calcium (Atorvastatin Calcium) 80 Mg Tab, 80 MG PO DAILY, (Reported) Calcium Acetate (Calcium Acetate) 667 Mg Cap, 1,334 MG PO WM, (Reported) Cilostazol (Cilostazol) 100 Mg Tab, 100 MG PO BID, (Reported) Citalopram Hydrobromide (Citalopram HBr) 20 Mg Tab, 10 MG PO DAILY, (Reported) Clonidine HCl (Clonidine HCl) 0.2 Mg Tab, 0.2 MG PO BID, (Reported) Ergocalciferol (Vitamin D2) (Vitamin D2) 50,000 Unit Cap, 50,000 UNIT PO QWEEK, (Reported) SUNDAYS Ferrous Gluconate (Ferrous Gluconate) 324 Mg Tab, 324 MG PO TID, (Reported) Gabapentin (Neurontin) 300 Mg Cap, 300 MG PO BID, (Reported) Hydralazine HCl (Hydralazine HCl) 25 Mg Tab, 25 MG PO BID, (Reported) Insulin Glargine,Hum.rec.anlog (Lantus Solostar) 100 Unit/Ml Inj, 30 UNIT SC QH S, (Reported) Insulin Human Lispro (Humalog) 100 Unit/1 Ml Vial, 1 DOSE SC AC, (Reported) PER SLIDING SCALE Lactobacillus Acidophilus (Probiotic) 1 Each Capsule, 1 CAP PO DAILY, (Reported) Lidocaine/Prilocaine (Lidocaine-Prilocaine Cream) 30 Gm Cream..g., 1 DOSE TOP 3XW, (Reported) APPLY TO DIALYSIS PORT Losartan Potassium (Losartan Potassium) 100 Mg Tab, 100 MG PO DAILY, (Reported) Oxycodone HCl (Oxycontin) 15 Mg Tab.er.12h, 15 MG PO BID, (Reported) Pantoprazole Sodium (Pantoprazole Sodium) 40 Mg Tab, 40 MG PO DAILY, (Reported) Tamsulosin HCl (Flomax) 0.4 Mg Capsule, 0.4 MG PO DAILY, (Reported) Warfarin Sodium (Coumadin) 2.5 Mg Tab, 3.75 MG PO 6XWK, (Reported) QPM: SUN, MON, TUES, WED, FRI, SAT Warfarin Sodium (Warfarin Sodium) 2.5 Mg Tablet, 5 MG PO 1XWK, (Reported) QPM: THURS Scheduled PRN Dextrose (Glucose) 4 Gm Chw, 4 GM PO ASDIRECTED PRN for BLOOD SUGAR, (Reported) FOR LOW BLOOD PRESSURE LESS THAN 70 Oxycodone HCl (Oxycodone HCl) 5 Mg Tab, 5 MG PO BID PRN for BREAKTHROUGH PAIN, (Reported) Sennosides/Docusate Sodium (Senokot-S Tablet) 1 Each Tablet, 1 TAB PO QHSP PRN for CONSTIPATION, (Reported) Trazodone HCl (Trazodone HCl) 50 Mg Tab, 25 MG PO QHS PRN for SLEEP, (Reported) Attending Note Attending Note VASCULAR SURGICAL ATTENDING NOTE: Dr. Juan Currie M.D. The patient was seen on 05/30/19 at 10:00. ASSESSMENT: Patient is a 64-year-old male with history of end-stage renal diseas e, diabetes mellitus, and a previous right lower extremity superficial femoral to posterior tibial artery vein bypass graft with ultrasound showing stenosis in the proximal anastomosis. Patient also has worsening ulceration of the left toes and gangrene of the toes. Patient underwent an angiogram of the right lower extremity showing 60-70% stenosis at the origin of the takeoff of the bypass graft. The patient has no symptoms in the right lower extremity with no ulcerations or tissue loss. The left lower extremity angiogram showed severe disease in the superficial femoral and popliteal artery with occlusive lesion in the popliteal artery in the knee joint region with 2 vessel runoff into the foot. PLAN: Patient will require admission for IV antibiotics due to the infection and gangrene in the left foot and repeat angiography with attempted recanalization of the occlusion in the left popliteal artery with possible angioplasty, stent and/or arthrectomy. This will be scheduled in the next 24-48 hours. Nancy Echavarria was the attending vascular surgeon for this patient encounter. The patient was seen, examined, interviewed and evaluated independently by Dr. Ana Currie M.D. Dr. Ana Currie M.D. was fully available during the consultation evaluation. All aspects of the patient interview, examination, medical decision making process, and medical care plan development were reviewed and approved by Dr. Ana Currie M.D. Dr. Ana Currie M.D. is aware and concurs with the plan as stated in the body of this note and will attest to such by his/her cosignature. Meseret Allen May 30, 2019 11:05 Owen Currie MD May 31, 2019 13:45
[2019-05-30 13:48] VITALS: BP 168/72
[2019-05-30] MEDS ORDERED: ACETAMINOPHEN TAB 650MG DOSE (2X325MG) PO PRN (15:00)
[2019-05-30] MEDS ORDERED: DEXTROSE 50% 50 ML SYRINGE IV PRN (15:00)
[2019-05-30] MEDS ORDERED: GLUCAGON FOR INJ 1 MG VIAL (J1610) SC PRN (15:00)
[2019-05-30] MEDS ORDERED: GLUCOSE 4 GM CHEW TABLET PO PRN (15:00)
[2019-05-30] MEDS ORDERED: WARF-18 PO (15:41)
[2019-05-30] MEDS ORDERED: INSUHUMDS SC (15:41)
[2019-05-30 16:04] LABS: INR 2.06
[2019-05-30 16:17] LABS: ALBUMIN 2.8 GM/DL (3.2-5.2); BILIRUBIN,TOTAL 0.4 MG/DL (0.2-1.0); CALCIUM LEVEL 7.5 MG/DL (8.8-10.2); CREATININE FOR GFR 4.58 MG/DL (0.70-1.30); GLOMERULAR FILTRATION RATE 13.9 (>49); POTASSIUM SERUM 4.4 MEQ/L (3.5-5.1); TOTAL PROTEIN 6.4 GM/DL (6.4-8.2)
[2019-05-30] MEDS ORDERED: SENOKOT S TAB PO PRN (16:30)
[2019-05-30] MEDS ORDERED: HumaLOG INSULIN (NovoLOG) PER UNIT SC SCH (17:30)
[2019-05-30] MEDS: CALCIUM ACETATE 667 MG GELCAP PO SCH (17:45)
[2019-05-30] MEDS: PANTOPRAZOLE 40MG TAB (PROTONIX) PO SCH (17:45)
[2019-05-30] MEDS: ATORVASTATIN 20 MG TAB PO SCH (17:45)
[2019-05-30] MEDS: CitaloPRAM (CeleXA) 10 MG TABLET PO SCH (17:46)
[2019-05-30] MEDS: LOSARTAN 50 MG TAB PO SCH (17:47)
[2019-05-30] MEDS: TAMSULOSIN 0.4 MG CAP PO SCH (17:48)
[2019-05-30] MEDS: HumaLOG INSULIN (NovoLOG) PER UNIT SC SCH ×2 (17:49→20:51)
[2019-05-30] MEDS: oxyCODONE 5MG TAB PO PRN (17:50)
[2019-05-30] MEDS ORDERED: WARFARIN SOD 7.5 MG TAB PO SCH (19:15)
[2019-05-30] MEDS ORDERED: CEFEPIME HCL 1 GM in D5W MINI-BAG PLUS 50 ML IV ONE (19:15)
[2019-05-30] MEDS ORDERED: VANCOMYCIN HCL 500 MG in D5W MINI-BAG PLUS 100 ML IV ONE (19:15)
[2019-05-30] MEDS ORDERED: VANCOMYCIN HCL 1,000 MG, VIAL MATE ADAPTER 1 EACH in D5W 250 ML IV ONE ×2 (20:00→22:00)
[2019-05-30] MEDS ORDERED: CEFEPIME HCL 2 GM in D5W MINI-BAG PLUS 50 ML IV SCH (20:00)
[2019-05-30] MEDS: LEVEMIR (INSULIN DETEMIR) 1 UNITS/0.01ML SC SCH (20:17)
[2019-05-30] MEDS ORDERED: PILL CUTTER 1 EACH XX PRN (20:30)
--- NOTE | 2019-05-30 20:41 | PHACANCOPD ---
PHARMACY VANCOMYCIN DOSING Pt Demographics Demographics Patient Age:64 , Weight:99.900 , Gender: male Adjusted Body Weight Date: 05/30/19, Adjusted Body Weight: [87.9] Kg Events Past 24 Hours Events Past 24 Hours: NO: Dialysis, Diuretic Therapy, Change in CrCl, Fever, Elevation in WBC, Pending Diagnostics, Pending Procedures, Other Vancomycin Vancomycin indication: Toe Gangrene Vancomycin Target Ranges: 10-20 mcg/ml Vancomycin Load Y/N: Yes Load Dose Date Time Vancomycin Load Dose: 2g Date: 05/30/19 Time:21:00 Vancomycin Dose Date: 05/30/19. Current Vancomycin Dose: [1g iv q24h] Intermittent Dosing?: No Labs Labs Item Value Date Time C-Reactive Protein, Quantitative 4.52 MG/DL H 05/30/19 1535 Creatinine 4.58 MG/DL H 05/30/19 1535 Micro Microbiology 05/30/19 MRSA Screen, Received Pending Creatinine Clearance Date:05/30/19. Creatinine Clearance: [20.5ml/min]. Pending Labs mrsa screen Assessment and Plan Maintaining Current Dose?: Yes Reason for dose change: No Dose Change Pharmacist Note Pharmacist Note Date: 05/30/19. Pharmacist note:Pt is a 64 year old male being treated for toe gangrene goal trough 10-20mc/gml. The pt has not been treated with vancomycin here at [facility] in the past. To achieve goal a 2g loading dose will start 05/30/19 @21:00. Maintenance therapy will consist of 1g IV every 21 hours starting 05/31/19 @21:00. We will continue to monitor and adjust the dose as needed. [facility] May 30, 2019 20:41
[2019-05-30] MEDS: DOCUSATE SODIUM 100 MG CAP PO SCH (20:45)
[2019-05-30] MEDS: CILOSTAZOL 100 MG TAB (PLETAL) PO SCH (20:45)
[2019-05-30] MEDS: WARFARIN SOD 7.5 MG TAB PO SCH (20:45)
[2019-05-30] MEDS: **hydrALAZINE HCL** 25 MG TAB PO SCH (20:46)
[2019-05-30] MEDS: GABAPENTIN 300 MG CAP PO SCH (20:47)
[2019-05-30] MEDS: cloNIDine 0.2 MG TAB PO SCH (20:47)
[2019-05-30] MEDS: oxyCODONE 15 MG CR TAB PO SCH (20:48)
[2019-05-30] MEDS ORDERED: FERROUS GLUCONATE 324 MG TAB PO SCH (21:00)
[2019-05-30] MEDS ORDERED: VANCOMYCIN HCL 1,000 MG, VIAL MATE ADAPTER 1 EACH in D5W 250 ML IV SCH (21:00)
--- NOTE | 2019-05-30 21:00 | HPEPDOC ---
General Date of Admission May 30, 2019 at 13:48 Date of Service: May 30, 2019 Chief Complaint The patient is a 64-year-old male admitted with a reason for visit of PAD. Source: Patient Exam Limitations: Hard of hearing Timing/Duration: Week(s) Severity: Moderate Associated Symptoms: Denies Symptoms History of Present Illness This is a 64-year-old male with a known history of peripheral vascular disease. He's required surgical intervention in the past, inclusive of her right lower extremity bypass. The patient reports that about 3 weeks ago. His cable inspector had noticed development of blisters to the side of his left foot and under and between his toes. He states he's been followed by podiatry service. The wounds have gotten worse and so he was sent over to be evaluated by vascular surgery services. The patient apparently has developed remarkable gangrene to his toes. The patient states he has such bad neuropathy. He cannot really feel anything such as pain or altered sensation. Additionally, he states he really can't see his feet very well unless he turns him in a certain position. The patient denies any symptoms such as fever or chills. He's not had any nausea or vomiting. He states he does have chronic pain. He ambulates with a walker. He does note that he has had at least 9 strokes in the past with some right- sided deficits. He states these are primarily sensory, although he does have right-sided weakness and he has sensitivity and altered sensation to his right hand and foot. Lastly, the patient does have chronic kidney disease stage V that is hemodialysis requiring. Home Medications Scheduled Atorvastatin Calcium (Atorvastatin Calcium) 80 Mg Tab, 80 MG PO DAILY, (Reported) Calcium Acetate (Calcium Acetate) 667 Mg Cap, 1,334 MG PO WM, (Reported) Cilostazol (Cilostazol) 100 Mg Tab, 100 MG PO BID, (Reported) Citalopram Hydrobromide (Citalopram HBr) 20 Mg Tab, 10 MG PO DAILY, (Reported) Clonidine HCl (Clonidine HCl) 0.2 Mg Tab, 0.2 MG PO BID, (Reported) Ergocalciferol (Vitamin D2) (Vitamin D2) 50,000 Unit Cap, 50,000 UNIT PO QWEEK, (Reported) SUNDAYS Ferrous Gluconate (Ferrous Gluconate) 324 Mg Tab, 324 MG PO TID, (Reported) Gabapentin (Neurontin) 300 Mg Cap, 300 MG PO BID, (Reported) Hydralazine HCl (Hydralazine HCl) 25 Mg Tab, 25 MG PO BID, (Reported) Insulin Glargine,Hum.rec.anlog (Lantus Solostar) 100 Unit/Ml Inj, 30 UNIT SC QHS, (Reported) Insulin Human Lispro (Humalog) 100 Unit/1 Ml Vial, 1 DOSE SC AC, (Reported) PER SLIDING SCALE Lactobacillus Acidophilus (Probiotic) 1 Each Capsule, 1 CAP PO DAILY, (Reported) Lidocaine/Prilocaine (Lidocaine-Prilocaine Cream) 30 Gm Cream..g., 1 DOSE TOP 3XW, (Reported) APPLY TO DIALYSIS PORT Losartan Potassium (Losartan Potassium) 100 Mg Tab, 100 MG PO DAILY, (Reported) Oxycodone HCl (Oxycontin) 15 Mg Tab.er.12h, 15 MG PO BID, (Reported) Pantoprazole Sodium (Pantoprazole Sodium) 40 Mg Tab, 40 MG PO DAILY, (Reported) Tamsulosin HCl (Flomax) 0.4 Mg Capsule, 0.4 MG PO DAILY, (Reported) Warfarin Sodium (Coumadin) 2.5 Mg Tab, 3.75 MG PO 6XWK, (Reported) QPM: SUN, MON, TUES, WED, FRI, SAT Warfarin Sodium (Warfarin Sodium) 2.5 Mg Tablet, 5 MG PO 1XWK, (Reported) QPM: THURS Scheduled PRN Dextrose (Glucose) 4 Gm Chw, 4 GM PO ASDIRECTED PRN for BLOOD SUGAR, (Reported) FOR LOW BLOOD PRESSURE LESS THAN 70 Oxycodone HCl (Oxycodone HCl) 5 Mg Tab, 5 MG PO BID PRN for BREAKTHROUGH PAIN, (Reported) Sennosides/Docusate Sodium (Senokot-S Tablet) 1 Each Tablet, 1 TAB PO QHSP PRN for CONSTIPATION, (Reported) Trazodone HCl (Trazodone HCl) 50 Mg Tab, 25 MG PO QHS PRN for SLEEP, (Reported) Allergies Coded Allergies: No Known Allergies (Unverified , 12/08/18) Past Medical History Medical History Past medical history includes essential hypertension, history of multiple strokes, peripheral vascular disease, end-stage renal disease or chronic kidney disease stage V, [id number]-ussnnjfxy diabetes mellitus with neuropathy and vasculopathy. Surgical History Surgical history includes fistula placement for hemodialysis, prior mentioned right lower extremity bypass, C7 fusion, bilateral inguinal hernia repair, left fifth toe amputation in the past Family History Significant Family History: Heart disease There is maternal history of dementia. There is a sibling with diabetes. No other family members had notable kidney disease. 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 Patient states his CODE STATUS is to be DNR/DNI. His brother, Vishal is designated as his power of bankruptcy attorney. We have reviewed his MOLST form from 2016 in the medical record and he states that it still stands. A-FIB/CHADSVASC A-FIB History Current/History of A-Fib/PAF?: No Current PO Anticoag Therapy: No Review of Systems Other systems 10 systems are reviewed with the patient and review is otherwise negative except as stated in the brief presentation. Physical Examination General Exam: Positive: Alert Eye Exam: Positive: PERRLA, Conjunctiva & lids normal ENT Exam: Positive: Atraumatic, Mucous membr. moist/pink, Nares Patent, Other ENT (wears dentures) Neck Exam: Positive: Supple Chest Exam: Positive: Clear to auscultation, Normal air movement Heart Exam: Positive: Rate Normal, Regular Rhythm, Normal S1, Normal S2; Negative: Murmurs, Rubs Abdomen Exam: Positive: Normal bowel sounds Extremity Exam: Positive: Normal pulses (remarkably, pedal pulses are palpable bilaterally), Other (attention to the left foot shows that there are 3-4. Gangrenous toes with discoloration to the skin, some sloughing and remarkable odor) Skin Exam: Positive: Nl turgor and temperature Neuro Exam: Positive: Normal Speech, Cranial Nerves 3-12 NL, Other (patient has remarkable right-sided weakness, please note that he is left-hand dominant) Psych Exam: Positive: Mental status NL, Mood NL Other physical findings Patient does have right upper extremity fistula site that is functioning with palpable thrill and audible bruit Vital Signs Vital Signs Date Time Temp Pulse Resp B/P (MAP) Pulse Ox O2 Delivery O2 Flow Rate FiO2 05/30/19 18:43 18 05/30/19 17:47 146/61 05/30/19 13:48 98.2 63 98 05/30/19 10:20 2 Laboratory Data Labs 24H Laboratory Tests 2 05/30/19 15:35: Erythrocyte Sedimentation Rate 87H, Prothrombin Time 23.0H, Prothromb Time International Ratio 2.06, Anion Gap 7L, Glomerular Filtration Rate 13.9L, Lactic Acid Level 1.1, Blood Urea Nitrogen 42H, Creatinine 4.58H, Sodium Level 133L, Potassium Level 4.4, Chloride Level 98, Carbon Dioxide Level 28, Calcium Level 7.5L, Aspartate Amino Transf (AST/SGOT) 15, Alanine Aminotransferase (ALT/SGPT) 20, Alkaline Phosphatase 114, Total Bilirubin 0.4, Total Protein 6.4, Albumin 2.8L, C-Reactive Protein, Quantitative 4.52H, Albumin/Globulin Ratio 0.78L CBC/BMP Laboratory Tests 05/30/19 15:35 Calcium Level 7.5 L, Aspartate Amino Transf (AST/SGOT) 15, Alanine Aminotransferase (ALT/SGPT) 20, Alkaline Phosphatase 114, Total Bilirubin 0.4, Total Protein 6.4, Albumin 2.8 L Microbiology Microbiology 05/30/19 MRSA Screen, Received Pending Assessment/Plan 1. Left lower extremity toe gangrene. This would be considered wet gangrene. Patient has a sedimentation rate of 87 w ith a C-reactive protein of 4.52. Lactic acid is normal at 1.1. There could be underlying concern of osteomyelitis. Patient has been placed on empiric antibiotics in the form of Vanco and cefepime. Cultures have been obtained and we will continue to monitor them. 2. Peripheral vascular disease. Patient underwent evaluation by arteriogram today. Patient has a history of right lower extremity bypass in the past. There are possible plans for intervention inclusive of bypass and stent placement tomorrow. If good blood flow cannot be restored there may be consideration of toe amputation. 3. Hao-afnpeli-mbdfjhqge diabetes mellitus. We will continue with his current management regimen. Also making available sliding scale insulin for glycemic control. 4. Chronic kidney disease stage V. The patient does require hemodialysis. His manager software is Dr. Jeong. Plan / VTE VTE Prophylaxis Ordered?: Yes (patient remains on his Coumadin regimen for now, he is barely therapeutic) VTE Exclusion Mechanical Proph: Jose De Jesus Lower Ex Ischemia VTE Exclusion Pharmacological: N/A:VTE Prophy Ordered Plan Diet: Make NPO (nothing by mouth for procedures in the morning), Continue Current Activity: Continue Current Medications: Start Antibiotics Diagnostics: Check Labs, Repeat Labs in AM, Obtain Cultures Anticipated Discharge: Home With Services Advanced Directives: MOLST Form is available (MOLST form from 2016 is reviewed in the medical record. He is DNR/DNI.) RYAN SU MD May 30, 2019 21:00
--- NOTE | 2019-05-30 21:51 | PHACANCOPD ---
PHARMACY VANCOMYCIN DOSING Pt Demographics Demographics Patient Age:64 , Weight:99.900 , Gender: male Adjusted Body Weight Date: 05/30/19, Adjusted Body Weight: [87.9] Kg Vancomycin Vancomycin indication: Toe Gangrene Vancomycin Target Ranges: 10-20 mcg/ml Vancomycin Load Y/N: Yes Load Dose Date Time Vancomycin Load Dose: 2g Date: 05/30/19 Time:21:00 Vancomycin Dose Date: 05/30/19. Current Vancomycin Dose: [1g iv q24h] Intermittent Dosing?: No Labs Micro Microbiology 05/30/19 MRSA Screen, Received Pending Creatinine Clearance Date:05/30/19. Creatinine Clearance: [20.5ml/min]. Pending Labs mrsa screen Assessment and Plan Maintaining Current Dose?: No Reason for dose change: Other Pharmacist Note Pharmacist Note Date: 05/30/19. Pharmacist note:Patient will receive dialysis - per Dr Cesar.Vancomycin 1 gram to be administered this evening ,Random level to be drawn tomorrow AM-Then will be dosed per HD protocol.-Will continue to follow Date: 05/30/19. Pharmacist note:Pt is a 64 year old male being treated for toe gangrene goal trough 10-20mc/gml. The pt has not been treated with vancomycin here at [facility] in the past. To achieve goal a 2g loading dose will start 05/30/19 @21:00. Maintenance therapy will consist of 1g IV every 21 hours starting 05/31/19 @21:00. We will continue to monitor and adjust the dose as needed. STACY MARKS PHARMACY May 30, 2019 21:51
[2019-05-30 22:00] VITALS: BP 160/90
--- NOTE | 2019-05-30 22:12 | CR ---
DATE OF CONSULTATION: 05/30/2019 REQUESTING PHYSICIAN: Owen Currie MD CONSULTING PHYSICIAN: Richelle Cesar MD REASON FOR CONSULTATION: Management of end-stage renal disease on hemodialysis. CHIEF COMPLAINT: The patient presented as outpatient for a lower extremity angiogram but was found to have wet gangene. HISTORY OF PRESENT ILLNESS Mr. Owen Beard is a 64-year-old male with past medical history of end-stage renal disease on hemodialysis every Wednesday, Wednesday, Wednesday. Last hemodialysis was done yesterday. History of peripheral vascular disease, insulin dependent diabetic, multiple other comorbidities as mentioned below. He came electively as outpatient to see vascular surgery and get the right lower extremity angiogram done. However, during evaluation the patient was found to have a wet gangrene and wounds in the toes in the left foot so patient is being admitted under the vascular surgery service. Nephrology service was called for further help in the management of end-stage renal disease and management of hemodialysis. I saw and evaluated the patient today afternoon in the interventional radiology suite. He is afebrile and hemodynamically stable at this time. PAST MEDICAL HISTORY Past medical history of end-stage renal disease on hemodialysis every Wednesday, Wednesday, Wednesday, peripheral vascular disease, history of kidney stones. History of deep venous thrombosis (DVT) in the past, diabetes mellitus type 2 insulin dependent, hypertension, depression, peripheral neuropathy, anemia in end-stage renal disease, obstructive sleep apnea. PAST SURGICAL HISTORY History of prior colonoscopy in the past, status post a right arm AV fistula. ALLERGIES: NO KNOWN DRUG ALLERGIES. FAMILY HISTORY No significant family history of end-stage renal disease requiring hemodialysis. SOCIAL HISTORY The patient denies any smoking, drug abuse or alcohol abuse. REVIEW OF SYSTEMS Constitutional: He denies any fevers and chills. Eyes: He denies any blurry vision, double vision. ENT: He denies any dysphagia, odynophagia. Cardiovascular: He denies any chest pain or shortness of breath. Respiratory: He denies any cough or wheezing. GI: Denies any nausea, vomiting. Genitourinary: He denies any dysuria, hematuria. Musculoskeletal: He reports peripheral vascular disease and ulcers on the left foot. 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 She denies any depression, anxiety. Skin: He denies any rashes. He does report ulcers on the left foot. Hematology/Oncology: He denies any easy bleeding or bruising. Endocrine: He reports diabetes mellitus. All other review of systems is negative. PHYSICAL EXAMINATION General: The patient is awake, alert, oriented times three, laying in bed. In no apparent distress. Vital signs: Temperature is 98.2 degrees Fahrenheit. Blood pressure 146/61, pulse is 63, respiratory rate of 90, saturating 98% on room air. Head and neck examination: Extraocular muscles intact. Pupils equally round and reactive to light. Mucous membranes are moist. Neck is supple. There is no JVD. Cardiovascular: S1, S2, regular rate. Trace edema of the lower extremities. Respiratory: Chest is clear to auscultation bilaterally. Bilateral equal air entry. No rales or rhonchi. Abdomen: Soft, obese, positive bowel sounds. Nontender. No organomegaly. Musculoskeletal: The patient has wet gangrene of the left 1-4 toes which is covered with a dressing. FUR FLOOR WORKER: No focal deficit. Power is 5/5 in all extremities. Psych: Normal mood and affect. LAB REVIEW: Erythrocyte sedimentation rate was done which was 87. BMP showed sodium 133, potassium 4.4, chloride 98, bicarb 28, BUN 42, creatinine is 4.5, calcium 7.5, C-reactive protein is 4.5, INR is 2. Microbiology: MRSA screen is pending. IMAGING STUDIES Fluoroscopy was done today. Outpatient report is pending. CURRENT INPATIENT MEDICATIONS The patient's medications were all reviewed by me. He was started on cefepime 2 grams IV every 24. He is also on vancomycin 1 gram IV daily. I have changed it to 1 gram IV every hemodialysis. He is on Lipitor 80 mg daily, PhosLo 1.3 grams with meals, cilostazol 100 mg by mouth twice a day, Celexa 10 mg daily, clonidine 0.2 mg by mouth twice a day, Colace 100 mg by mouth twice a day, iron tablet three times a day, gabapentin 300 mg by mouth twice a day, hydralazine 25 mg by mouth twice a day, insulin Levemir 30 units subcu at bedtime and insulin sliding scale, losartan 100 mg daily, oxycodone 15 mg by mouth twice a day, Protonix 40 mg by mouth daily, Flomax 0.4 mg by mouth daily, trazodone 25 mg at bedtime and Coumadin 3.75 mg by mouth daily. ASSESSMENT 64-year-old male with a history of end-stage renal disease on hemodialysis, hypertension, insulin dependent diabetes, peripheral vascular disease admitted this time status post a right lower extremity angiogram and new diagnosis of the wet gangrene of the left extremity toes. PLAN 1. End-stage renal disease on hemodialysis. The patient's regular dialysis days are Wednesday, Wednesday, Wednesday. He was dialyzed yesterday. The patient will be dialyzed tomorrow after angiogram of the lower extremity. 2. Peripheral vascular disease and wet gangrene of the left extremity toes. The patient is possibly going to have left foot debridement. He has been started on empiric dose of her vancomycin and cefepime. Vancomycin dose was adjusted according to patient's renal failure. 3. Hypertension with hypertensive heart disease. Continue current dose of clonidine, hydralazine and losartan. 4. Chronic kidney disease. Mineral bone disease. Continue current dose of PhosLo 1.3 grams by mouth with meals. 5. Anemia in end-stage renal disease. Check the patient's CBC and start the patient on Aranesp protocol tomorrow morning if needed. 6. Diabetes mellitus type 2 insulin dependent. Continue current dose of insulin Levemir and insulin sliding scale. Thank you for involving me in the care of this patient. I shall be happy to follow the patient along with you tomorrow morning.
[2019-05-30] MEDS: traZODone 25MG PER 1/2 TABLET PO PRN (22:13)
[2019-05-30 23:20] VITALS: BP 146/64
[2019-05-31 06:00] VITALS: BP 142/66
[2019-05-31] MEDS ORDERED: HYDROMORPHONE HCL 0.5 MG/ 0.5 ML SYRINGE (J1170 PER 1) IV PRN (06:30)
[2019-05-31 06:35] LABS: BASO % 0.6 % (0.0-1.0); EOS # 0.1 10^3/uL (0.0-0.5); EOS % 1.8 % (0.0-3.0); HEMATOCRIT 27.5 % (42.0-52.0); HEMOGLOBIN 9.1 g/dl (13.5-17.5); LYMPH # 1.3 10^3/uL (1.5-5.0); LYMPH % 17.6 % (24.0-44.0); MEAN CORPUSCULAR HEMOGLOBIN 28.3 pg (27.0-33.0); MEAN CORPUSCULAR HGB CONC 33.1 g/dl (32.0-36.5); MEAN CORPUSCULAR VOLUME 85.4 fl (80.0-96.0); MONO # 0.6 10^3/uL (0.0-0.8); MONO % 8.8 % (0.0-5.0); NEUTROPHILS # 5.1 10^3/uL (1.5-8.5); NEUTROPHILS % 70.6 % (36.0-66.0); PLATELET COUNT, AUTOMATED 291 10^3/uL (150-450); RED BLOOD COUNT 3.22 10^6/uL (4.30-6.10); WHITE BLOOD COUNT 7.3 10^3/uL (4.0-10.0)
[2019-05-31 06:43] LABS: INR 2.24; PROTHROMBIN TIME 24.6 SECONDS (11.8-14.0)
--- NOTE | 2019-05-31 07:16 | PHACANCOPD ---
PHARMACY VANCOMYCIN DOSING Pt Demographics Demographics Patient Age:64 , Weight:98.500 , Gender: male Adjusted Body Weight Date: 05/30/19, Adjusted Body Weight: [87.9] Kg Events Past 24 Hours Events Past 24 Hours: YES: Dialysis; NO: Diuretic Therapy, Change in CrCl, Fever, Elevation in WBC, Pending Diagnostics, Pending Procedures, Other Vancomycin Vancomycin indication: Toe Gangrene Vancomycin Target Ranges: 10-20 mcg/ml Vancomycin Load Y/N: Yes Load Dose Date Time Vancomycin Load Dose: 2g Date: 05/30/19 Time:21:00 Vancomycin Dose Date: 05/30/19. Current Vancomycin Dose: [1g iv q24h] Intermittent Dosing?: No Labs Labs Item Value Date Time White Blood Count 7.3 10^3/uL 05/31/19 0618 Creatinine 4.58 MG/DL H 05/30/19 1535 C-Reactive Protein, Quantitative 4.52 MG/DL H 05/30/19 1535 Random Vancomycin Level 12.1 UG/ML 05/31/19 0618 Micro Microbiology 05/30/19 MRSA Screen, Received Pending Creatinine Clearance Date:05/30/19. Creatinine Clearance: [20.5ml/min]. Pending Labs mrsa screen Assessment and Plan Maintaining Current Dose?: Yes Reason for dose change: Trough too low Pharmacist Note Pharmacist Note 05/31/19: Random this AM resulted at 12.1mcg/ml. I have ordered an extra 500mg for this AM before dialysis. We will then continue Vanco 1G IV HD. I have ordered a random for Fri AM to ensure proper dosing. We will continue to monitor and adjust dose as needed. Date: 05/30/19. Pharmacist note:Patient will receive dialysis - per Dr Cesar.Vancomycin 1 gram to be administered this evening ,Random level to be drawn tomorrow AM-Then will be dosed per HD protocol.-Will continue to follow Date: 05/30/19. Pharmacist note:Pt is a 64 year old male being treated for toe gangrene goal trough 10-20mc/gml. The pt has not been treated with vancomycin here at [facility] in the past. To achieve goal a 2g loading dose will start 05/30/19 @21:00. Maintenance therapy will consist of 1g IV every 21 hours starting 05/31/19 @21:00. We will continue to monitor and adjust the dose as needed. ORIANA PENA PHARMACY May 31, 2019 07:16
[2019-05-31] MEDS ORDERED: diphenhydrAMINE INJ 50MG/ML VIAL (J1200) As Ordered ONE (07:20)
[2019-05-31] MEDS ORDERED: fentaNYL 100 MCG/2 ML INJECTION (J3010) As Ordered ONE (07:20)
[2019-05-31] MEDS ORDERED: LIDOCAINE 2% MDV 20 ML VIAL As Ordered ONE (07:21)
[2019-05-31] MEDS ORDERED: HEPARIN 1,000 UNITS/ML 10ML VIAL (FOR RADIOLOGY& DIALYSIS ONLY) As Ordered ONE (07:21)
[2019-05-31] MEDS ORDERED: MIDAZOLAM INJ 2 MG/2 ML VIAL (J2250) As Ordered ONE (07:21)
[2019-05-31] MEDS ORDERED: ISOVUE-300 61% 50ML VIAL (Q9967) As Ordered ONE (07:21)
[2019-05-31] MEDS: HumaLOG INSULIN (NovoLOG) PER UNIT SC SCH ×5 (07:30→21:07)
[2019-05-31] MEDS ORDERED: VANCOMYCIN HCL 500 MG in D5W MINI-BAG PLUS 100 ML IV ONE (08:00)
[2019-05-31] MEDS: CALCIUM ACETATE 667 MG GELCAP PO SCH ×3 (08:04→17:47)
[2019-05-31] MEDS: TAMSULOSIN 0.4 MG CAP PO SCH (08:04)
[2019-05-31] MEDS: PANTOPRAZOLE 40MG TAB (PROTONIX) PO SCH (08:04)
[2019-05-31] MEDS: cloNIDine 0.2 MG TAB PO SCH ×2 (08:05→21:05)
[2019-05-31] MEDS: GABAPENTIN 300 MG CAP PO SCH ×2 (08:05→21:05)
[2019-05-31] MEDS: CitaloPRAM (CeleXA) 10 MG TABLET PO SCH (08:05)
[2019-05-31] MEDS: LACTOBACILLUS ACIDOPHILUS CAP (BACID) PO SCH (08:05)
[2019-05-31] MEDS: ATORVASTATIN 20 MG TAB PO SCH (08:05)
[2019-05-31] MEDS: LOSARTAN 50 MG TAB PO SCH (08:05)
[2019-05-31] MEDS: oxyCODONE 15 MG CR TAB PO SCH ×2 (08:06→21:06)
[2019-05-31] MEDS: **hydrALAZINE HCL** 25 MG TAB PO SCH ×2 (08:06→21:05)
[2019-05-31] MEDS: CILOSTAZOL 100 MG TAB (PLETAL) PO SCH ×2 (08:10→21:04)
[2019-05-31] MEDS: DOCUSATE SODIUM 100 MG CAP PO SCH ×2 (08:29→21:06)
[2019-05-31] MEDS ORDERED: DARBEPOETIN 100 MCG/0.5 ML *DIALYSIS* SYRINGE (J0882) IV SCH (09:30)
--- NOTE | 2019-05-31 10:03 | IPNPDOC ---
Date Seen The patient was seen on 05/31/19. Progress Note Vascular Surgery Dr Currie HPI: 64year oldM with a past medical history significant for ESRD, on HD as per Nephrology, per pt recently being evaluated for possible renal transplant. The pt had been scheduled 05/30/19 as outpt for RLE angiogram however the pt was noted to have non healing wet gangrenous wounds of toes 1-4 of the Left foot, admission was arranged with Hospitalist for IV antibiotics and plan for LLE angiogram with possible intervention 05/31/19. The pt is currently returning from IR, angiogram left lower extremity rescheduled as per Dr. Currie to 06/01/19. PMHx: PAD RLE angiogram today. No intervention done. ESRD HD as per Nephrology H/O renal stones. H/O DVT IDDM HTN depression Neuropathy anemia HAO PSHX: cystoscopy colonoscopy Rt AVF PE: GEN: 64yoM. No acute distress. Easily awakens to voice. HEENT: Normocephalic, atraumatic.Moist mucous membranes. CHEST: Regular rate and rhythm, +S1, +S2 LUNGS: Clear to auscultation bilaterally. ABD: Round, soft, non-tender, non-distended. EXT: The Lt foot is noted to have dressing is applied. DP/PT pulses with Doppler. NEURO: Alert and oriented x 3. No focal deficits appreciated. A&P: 1. Lt foot wounds. Dry dressing is applied. IV antibiotics as per Hospitalist. Plan per Dr. Currie 05/31/19 is for LLE angiogram 06/01/19 with possible intervention to facilitate healing. May possibly require Lt foot debridement. Pt states he follows with Podiatry at the [place] in [place]. 2. PAD. S/P angiogram RLE 05/30/19. No intervention required as per Dr Currie. Report pending. The pt was noted to have non healing wounds and gangrenous wounds of the Left toes 1-4. Plan is for angiogram LLE 06/01/19 with plan for intervention as per Dr Currie. Lipitor/Pletal/Coumadin 3. ESRD/AVF RUE. HD MWF as per Nephrology. 4. H/O DVT. Pt is on Coumadin. INR this a.m. is noted to be 2.24. VS, I&O, 24H, [facility] Vital Signs/I&O Vital Signs Date Time Temp Pulse Resp B/P (MAP) Pulse Ox O2 Delivery O2 Flow Rate FiO2 05/31/19 08:06 18 05/31/19 08:05 156/67 05/31/19 07:14 97.6 61 98 05/30/19 10:20 2 I&O- Last 24 Hours up to 6 AM 05/31/19 06:00 Intake Total 570 ml Output Total 350 ml Balance 220 ml Laboratory Data 24H LABS Laboratory Tests 2 05/30/19 15:35: Erythrocyte Sedimentation Rate 87H, Prothrombin Time 23.0H, Prothromb Time International Ratio 2.06, Anion Gap 7L, Glomerular Filtration Rate 13.9L, Lactic Acid Level 1.1, Blood Urea Nitrogen 42H, Creatinine 4.58H, Sodium Level 133L, Potassium Level 4.4, Chloride Level 98, Carbon Dioxide Level 28, Calcium Level 7.5L, Aspartate Amino Transf (AST/SGOT) 15, Alanine Aminotransferase (ALT/SGPT) 20, Alkaline Phosphatase 114, Total Bilirubin 0.4, Total Protein 6.4, Albumin 2.8L, C-Reactive Protein, Quantitative 4.52H, Albumin/Globulin Ratio 0.78L 05/30/19 20:50: Bedside Glucose (Misc Panel) 196H 05/30/19 20:57: Urine Color YELLOW, Urine Appearance HAZY, Urine pH 6.0, Urine Specific Gomer 1.015, Urine Protein 3+H, Urine Glucose (UA) 3+H, Urine Ketones NEGATIVE, Urine Blood NEGATIVE, Urine Nitrite NEGATIVE, Urine Bilirubin NEGATIVE, Urine Urobilinogen 0.2, Urine Leukocyte Esterase NEGATIVE, Urine WBC (Auto) 2, Urine RBC (Auto) 4H, Urine Hyaline Casts (Auto) 1, Urine Bacteria (Auto) NEGATIVE, Urine Squamous Epithelial Cells 1, Urine Calcium Oxalate Cryst (Auto) SMALL, Urine Sperm (Auto) 05/31/19 06:04: Bedside Glucose (Misc Panel) 266H 05/31/19 06:18: Immature Granulocyte % (Auto) 0.6, White Blood Count 7.3, Red Blood Count 3.22L, Hemoglobin 9.1L, Hematocrit 27.5L, Mean Corpuscular Volume 85.4, Mean Corpuscular Hemoglobin 28.3, Mean Corpuscular Hemoglobin Concent 33.1, Red Cell Distribution Width 15.0H, Platelet Count 291, Neutrophils (%) (Auto) 70.6H, Lymphocytes (%) (Auto) 17.6L, Monocytes (%) (Auto) 8.8H, Eosinophils (%) (Auto) 1.8, Basophils (%) (Auto) 0.6, Neutrophils # (Auto) 5.1, Lymphocytes # (Auto) 1.3L, Monocytes # (Auto) 0.6, Eosinophils # (Auto) 0.1, Basophils # (Auto) 0.0, Nucleated Red Blood Cells % (auto) 0.0, Prothrombin Time 24.6H, Prothromb Time International Ratio 2.24, Random Vancomycin Level 12.1 CBC/BMP Laboratory Tests 05/30/19 15:35 Calcium Level 7.5 L, Aspartate Amino Transf (AST/SGOT) 15, Alanine Aminotransferase (ALT/SGPT) 20, Alkaline Phosphatase 114, Total Bilirubin 0.4, Total Protein 6.4, Albumin 2.8 L 05/31/19 06:18 Red Blood Count 3.22 L, Mean Corpuscular Volume 85.4, Mean Corpuscular Hemoglobin 28.3, Mean Corpuscular Hemoglobin Concent 33.1, Red Cell Distribution Width 15.0 H, Neutrophils (%) (Auto) 70.6 H, Lymphocytes (%) (Auto) 17.6 L, Monocytes (%) (Auto) 8.8 H, Eosinophils (%) (Auto) 1.8, Basophils (%) (Auto) 0.6, Neutrophils # (Auto) 5.1, Lymphocytes # (Auto) 1.3 L, Monocytes # (Auto) 0.6, Eosinophils # (Auto) 0.1, Basophils # (Auto) 0.0 Microbiology Microbiology 05/30/19 MRSA Screen, Received Pending Attending Note Attending Note VASCULAR SURGICAL ATTENDING NOTE: Dr. Juan Currie M.D. ASSESSMENT: Patient is a 64-year-old male with severe atherosclerotic arterial occlusive disease in the left and right lower extremity with left toe ulceration, tissue loss and gangrene. Patient underwent angiography and a left lower extremity showing severe atherosclerotic arterial occlusive disease in the left superficial femoral and popliteal arteries with near occlusive and/or occlusion of the popliteal artery in the region of the knee joint. PLAN: Patient will undergo a left lower extremity angiogram with possible angioplasty, stent and/or arthrectomy.The procedure was described and explained in detail to the patient including drawing of pictures demonstrating the procedure and pertinent anatomy. Risks, benefits and alternative treatment options were discussed with the patient. Alternative treatment options included but were not limited to no intervention. Benefits include but were not limited to evaluation of arterial flow through the aorta, iliac and femoral arteries into the lower extremities with possible intervention improving blood flow into the lower extremities with improved relief of symptoms, preventing tissue loss and prevention of possible limb loss. Risks included but were not limited to infection, bleeding, [renal failure requiring hemodialysis], pseudoaneurysm formation, retroperitoneal hematoma, possible need for open surgical intervention, possible requirement for transfusion of blood products, allergic reaction and/or complication from IV contrast, allergic reaction and/or complication from the prepping and draping materials, sedation related complication, pain at the cannulation site, continued or worsening pain in the affected limb, scarring of the skin, bruising, nerve injury, anesthetic complications, cerebrovascular accident, myocardial infarction, pulmonary embolus, deep venous thrombosis, loss of limb, loss of life, poor satisfaction and poor outcome. Risks of not performing the procedure included but were not limited to worsening of current symptoms, worsening of atherosclerotic arterial occlusive disease resulting in possible ulceration and or limb loss and . Patient's questions were answered. Patient voices understanding of these risks, benefits and alternative treatment options. Patient voices acceptance of the risks associated with angiography with possible angioplasty, stent and/or atherectomy and agrees to proceed with the procedure excepting the associated risks of the procedure. No guarantees or promises were made to the patient regarding the results or outcome of the procedure. Nancy Echavarria was the attending vascular surgeon for this patient encounter. The patient was seen, examined, interviewed and evaluated independently by Dr. Ana Currie M.D. Dr. Ana Currie M.D. was fully available during the consultation evaluation. All aspects of the patient interview, examination, medical decision making process, and medical care plan development were reviewed and approved by Dr. Ana Currie M.D. Dr. Ana Currie M.D. is aware and concurs with the plan as stated in the body of this note and will attest to such by his/her cosignature. Meseret Allen May 31, 2019 10:03 Owen Currie MD May 31, 2019 13:49
[2019-05-31] MEDS ORDERED: LIDOCAINE 1% SDV 5 ML VIAL SQ ONE (10:30)
[2019-05-31] MEDS: oxyCODONE 5MG TAB PO PRN (12:42)
--- NOTE | 2019-05-31 13:20 | IPN ---
DATE OF SERVICE: 05/31/2019 SUBJECTIVE: The patient was seen and examined at the bedside today morning. The patient is afebrile and hemodynamically stable. He was supposed to have debridement of the left foot done today, however, because of the OR schedule it has been postponed until tomorrow. Today's is the patient's regular day of dialysis. He will be dialyzed today in the afternoon. OBJECTIVE: Vital Signs: Temperature is 97.6 degrees Fahrenheit. Blood pressure is 156/67, pulse is 70, respiratory rate of 18 and saturating 98% on room air. Intake and Output: Urine output recorded as 150 mL, weight in the bed scale is 98.5 kg. PHYSICAL EXAMINATION: General: The patient is awake, alert, oriented times three, laying in bed in no apparent distress. Head and Neck Exam: Extraocular muscles intact. Pupils equally round and reactive to light. Mucous membranes are moist. Neck is supple. There is no jugular venous distention (JVD). Cardiovascular: S1 and S2, regular rate. 1+ edema of the lower extremities. Respiratory: Chest is clear to auscultation bilaterally. Bilateral equal air entry. No rales or rhonchi. Abdomen: Soft. Positive bowel sounds. Nontender. No organomegaly. Musculoskeletal: The patient has decreased pulses on the right lower extremity and left foot toes one to four have wet gangrene and they are covered with a dressing. CORE BLOWER OPERATOR: No focal deficit. Power is 5/5 in all extremities. LAB REVIEW: CBC showed a WBC of 7.3, hemoglobin 9.1 and platelets 291. BMP showed sodium 133 and potassium 4.4, and that is from yesterday. CURRENT INPATIENT MEDICATIONS: The patient's medications were all reviewed by me. I have started the patient on Aranesp 200 mcg IV with hemodialysis. I have changed his cefepime to 2 grams IV with hemodialysis. The vancomycin dose is being adjusted by pharmacy. ASSESSMENT/PLAN: 1. End-stage renal disease on hemodialysis. Today is the patient's regular day of dialysis. He will be dialyzed in the afternoon. Ultrafiltration goal will be around 2 liters as tolerated by his blood pressure. 2. Peripheral vascular disease and wet gangrene of the left extremity toes. The patient's surgery and angiogram have been postponed until tomorrow. He continues to be on IV vancomycin and cefepime. The dose has been adjusted according to end-stage renal disease. Intermittent hemodialysis. 3. Hypertension with hypertensive heart disease. Continue current dose of losartan, hydralazine and clonidine. 4. Anemia in end-stage renal disease. I have started the patient on Aranesp with dialysis. 5. History of deep vein thrombosis (DVT). The patient continues to be on Coumadin. INR is therapeutic.
--- NOTE | 2019-05-31 13:25 | ROOPDOC ---
[facility] Report Of Operation Report of Operation DATE OF PROCEDURE: 05/30/2019 PREOPERATIVE DIAGNOSES: Right superficial femoral to tibial artery bypass graft stenosis, nonhealing left total wounds with gangrene, end-stage renal disease, coronary artery disease, hypertension, hypercholesterolemia, diabetes mellitus, history of tobacco use with smoking of cigarettes for approximately 41 years, tobacco cessation 2013. POSTOPERATIVE DIAGNOSES: Right superficial femoral to tibial artery bypass graft stenosis, nonhealing left total wounds with gangrene, end-stage renal disease, coronary artery disease, hypertension, hypercholesterolemia, diabetes mellitus, history of tobacco use with smoking of cigarettes for approximately 41 years, tobacco cessation 2013. . PROCEDURE: Abdominal Aortogram Bilateral iliofemoral pelvic angiogram Selective right common femoral artery catheter placement with right lower extremity angiogram. Selective right superficial femoral artery catheter placement with right lower extremity angiogram. Left lower extremity angiogram via the left common femoral arterial sheath. Mynx closure of the left common femoral arteriotomy with a 5 Mozambican minx closure device. SURGEON: Dr. Juan Currie M.D. AIRCRAFT STRUCTURAL REPAIR MECHANIC: Carmine Barrow and Shyla Childers INDICATION: The patient is a 64-year-old male with end-stage reasons disease and diabetes mellitus who underwent a bypass graft in the right lower extremity with follow-up ultrasound showing stenosis at the proximal anastomosis. The patient was scheduled for angiography of the right lower extremity to evaluate his bypass graft and possibly into plasty the area of stenosis. The patient was recently seen by his morning news producer in [place] who noted that he has nonhealing left toe wounds as well as ulcerations and gangrene. The morning news producer called me and asked me to also perform angiography of the left lower extremity due to these wounds. The patient presents now with nociceptive in his right lower extremity bypass graft and nonhealing ulcerations of the left toes. The patient will undergo a right lower extremity angiogram, possible left lower extremity angiogram with possible angioplasty, stent and/or atherectomy. The procedure was described and explained in detail to the patient including drawing of pictures demonstrating the procedure and pertinent anatomy. Risks, benefits and alternative treatment options were discussed with the patient. Alternative treatment options included but were not limited to no intervention. Benefits include but were not limited to evaluation of arterial flow through the aorta, iliac and femoral arteries into the lower extremities with possible intervention improving blood flow into the lower extremities with improved relief of symptoms, preventing tissue loss and prevention of possible limb loss. Risks included but were not limited to infection, bleeding, pseudoaneurysm formation, retroperitoneal hematoma, possible need for open surgical intervention, possible requirement for transfusion of blood products, allergic reaction and/or complication from IV contrast, allergic reaction and/or complication from the prepping and draping materials, sedation related complication, pain at the cannulation site, continued or worsening pain in the affected limb, scarring of the skin, bruising, nerve injury, anesthetic complications, cerebrovascular accident, myocardial infarction, pulmonary embo blaze, deep venous thrombosis, loss of limb, loss of life, poor satisfaction and poor outcome. Risks of not performing the procedure included but were not limited to worsening of current symptoms, worsening of atherosclerotic arterial occlusive disease resulting in possible ulceration and or limb loss and . Patient's questions were answered. Patient voices understanding of these risks, benefits and alternative treatment options. Patient voices acceptance of the risks associated with angiography with possible angioplasty, stent and/or atherectomy and agrees to proceed with the procedure excepting the associated risks of the procedure. No guarantees or promises were made to the patient regarding the results or outcome of the procedure. ANESTHESIA: Local with sedation with 1 mg of Versed, 50 g of fentanyl, 50 mg of Benadryl and 20 mL of 2% lidocaine mixed with 0.5% Marcaine. SEDATION TIME: 9:24 AM to 9:53 AM for a total of 29 minutes. The sedation was administered by the registered nurse attending the case. The cardiopulmonary monitoring during sedation was performed by the registered nurse attending the case. Administration of sedation and cardiopulmonary monitoring were performed under my direct supervision and direction. I was present for and directed the entire case. There were no sedation related complications. Patient was stable post sedation and returned to pre-sedation status. ESTIMATED BLOOD LOSS: 15 mL. IV FLUIDS: 150 mL. HEPARIN:None PROTAMINE:None FLUORO TIME: 1.2 Minutes CONTRAST: 26 mL of Isovue-300 COMPLICATIONS: None DRAINS:None SPECIMENS:None IMPLANTS:Left common femoral arteriotomy closure with a MYNX closure device PROCEDURE: Patient was taken to angiography suite and placed supine on the angiography room table. The patient was prepped and draped in a standard surgical fashion. A surgical timeout confirming the correct patient, procedure and laterality was performed by myself and the team members in the room. The left common femoral artery was then cannulated using a micropuncture needle after anesthetizing the overlying skin and subcutaneous tissue with 2% lidocaine mixed with 0.5% Marcaine. A micropuncture wire was advanced through the micropuncture needle which was upsized to a micropuncture sheath. The Butler w romeo was then advanced through the micropuncture sheath which was upsized to a 5 Mozambican sheath. The Omni flush catheter was advanced over the Butler wire, placed in the aorta at the level of the diaphragm and an abdominal aortogram was performed. Catheter was then pulled down to the level of the bifurcation of the iliac arteries and and a bilateral iliofemoral pelvic angiogram was performed. Catheter was directed over the bifurcation of the iliac arteries using the Butler wire and placed into the right common femoral artery selectively and a selective right lower extremity angiogram was performed. The catheter was advanced into the right superficial femoral artery selectively and a selective right superficial femoral artery angiogram with runoff was performed. Catheters and wires were then removed. The left lower extremity angiogram was then performed through the left common femoral arterial sheath. The left common femoral arteriotomy was closed using a 5 Mozambican minx closure device with an additional 10 minutes of adjunctive pressure applied for hemostasis which was noted. Patient tolerated the procedure well. All instrument, sponge and needle counts were correct at the end of the case. There were no complications. Dr. Currie was present for and directed the entire case. The patient was transferred to the recovery area and subsequently admitted to the hospital in stable con dition. The procedure and results were explained and described to the patient in detail in the postprocedure holding area with all of his questions being answered. RADIOLOGIC SUPERVISION AND INTERPRETATION: ABDOMINAL AORTOGRAM: The aorta from the diaphragm to the renal arteries was widely patent as were the superior mesenteric and celiac arteries and both renal arteries. The infrarenal aorta was patent with good filling of the lumbar vessels. The inferior mesenteric artery was not visualized PELVIC AORTOGRAM AND BILATERAL ILIOFEMORAL ANGIOGRAPHY: The common iliac, external iliac and internal iliac arteries were patent bilaterally. SELECTIVE RIGHT COMMON FEMORAL ARTERY CATHETER PLACEMENT WITH SELECTIVE RIGHT COMMON FEMORAL ARTERY ANGIOGRAM: There was mild narrowing at the junction of the right external iliac artery and right common femoral artery. There were multiple areas of moderate narrowing in the superficial femoral artery in the upper thigh region. There was a high-grade stenosis at the superficial femoral and popliteal artery junction with the popliteal artery being patent and severely diseased the above-knee region and occluded at the knee joint. SELECTIVE RIGHT SUPERFICIAL FEMORAL ARTERY CATHETER PLACEMENT WITH SELECTIVE RIGHT SUPERFICIAL FEMORAL ARTERY ANGIOGRAM:There was a bypass graft which was a vein bypass graft originating off the superficial femoral artery and popliteal artery junction with a stenosis at the superficial femoral artery which was approximately 60-70%. There were collaterals into the calf off of the occluded popliteal artery. The bypass graft was patent to its anastomosis to the posterior tibial artery which was patent into the ankle. The anterior tibial artery was reconstituted by collaterals and severely diseased. The posterior tibial artery was patent into the ankle and the foot with severe disease of these vessels in the foot and plantar arch. There was retrograde filling of the peroneal artery off of the collateral from the posterior tibial artery. LEFT LOWER EXTREMITY ANGIOGRAM VIA THE LEFT COMMON FEMORAL ARTERIAL SHEATH: The left lower extremity into gram showed the left common femoral artery to have mild to moderate stenosis above the bifurcation of the superficial femoral and profunda femoris arteries. There was diffuse disease along the course of the superficial femoral artery in the upper thigh which was mild to moderate. There was an approximate 60% stenosis at the junction of the superficial femoral and popliteal artery on the left. The popliteal artery and above knee region showed severe atherosclerotic arterial occlusive disease with moderate stenoses along its course to the level of the knee joint where there was a near occlusive lesion in the popliteal artery. Runoff in the below-knee region on the left was by the posterior tibial and peroneal arteries which were patent into the foot. The anterior tibial artery was occluded at its origin. The dorsalis pedis artery was small and severely diseased but reconstituted via collaterals from the peroneal artery. The arteriotomy in the left common femoral artery was closed using a 5 Mozambican minx closure device. CONCLUSION: Patient has stenosis at the origin of his right femoral to posterior tibial artery vein bypass graft which is approximate 60-70%. The patient is asymptomatic and this will be continued to be monitored. The patient has left foot nonhealing ulcers and gangrene and has a near occlusive lesion in the upper to artery at the knee joint region as well as moderate atherosclerotic arterial occlusive disease along the course of the superficial femoral and popliteal artery above the occlusion. PLAN: She'll require a left lower extremity angiogram with attempted recanalization of the occluded popliteal artery with possible angioplasty, stent and/or atherectomy. Owen Currie MD May 31, 2019 13:25
[2019-05-31] MEDS: **VANCO AFTER HD** MISC XX SCH (16:00)
[2019-05-31] MEDS: [UNRECOGNIZED DRUG - OTHER] XX SCH (16:00)
--- NOTE | 2019-05-31 16:18 | IPNPDOC ---
Text Note Date of Service The patient was seen on 05/31/19. NOTE SUBJECTIVE: Owen Beard is a 64-year-old male with a known history of peripheral arterial disease. He has required surgical intervention in the past. He is now admitted with concerns for wet gangrene to his left toes. He had been scheduled for vascular intervention this morning, but this is postponed for hemodialysis. As has been stated previously, the patient has remarkable neuropathy and does not have any complaints of pain or tingling. He has not had any fever or chills. OBJECTIVE: Please see below for vital signs. Physical exam: HENT: Neck is supple, no adenopathy or thyromegaly, oral mucosa is moist, no scleral icterus. Cardiovascular: Regular rate and rhythm, no appreciable murmur. Pulmonary: Clear to auscultation with no wheezing or cough. Abdomen: Soft, nontender, nondistended. Extremities: Patient has fistula to Right upper extremity with palpable thrill. I have undressed the left foot. Pedal pulse is not readily palpable, toes are discolored with dried secretions and some sloughing skin, there is foul odor. Neuro: Patient does have some right-sided extremity weakness that is residual from prior stroke, he has some right-sided sensory deficit from prior stroke and other sensory deficit from neuropathy. ASSESSMENT/PLAN: 1. Left lower extremity toe gangrene. This appears to involve all of his toes. Patient remains on empiric antibiotics in the form of Vanco and cefepime. MRSA screen is pending. 2. Peripheral vascular disease. The patient has undergone evaluation by arteriogram. Patient has history of right lower extremity bypass that does have some occlusion. Patient is noted to have some occlusive lesions to his left lower extremity. Plans for intervention, possibly inclusive of bypass and stent placement and been deferred to tomorrow. 3. Zqf-hdrcqku-uyvkcobqv diabetes mellitus. The patient continues with his current glucose management regimen. 4.Chronic kidney disease stage V. The patient does require hemodialysis, which he will undergo today. VS,Fishbone, I+O VS, Fishbone, I+O Laboratory Tests 05/31/19 06:18 Red Blood Count 3.22 L, Mean Corpuscular Volume 85.4, Mean Corpuscular Hemoglobin 28.3, Mean Corpuscular Hemoglobin Concent 33.1, Red Cell Distribution Width 15.0 H, Neutrophils (%) (Auto) 70.6 H, Lymphocytes (%) (Auto) 17.6 L, Monocytes (%) (Auto) 8.8 H, Eosinophils (%) (Auto) 1.8, Basophils (%) (Auto) 0.6, Neutrophils # (Auto) 5.1, Lymphocytes # (Auto) 1.3 L, Monocytes # (Auto) 0.6, Eosinophils # (Auto) 0.1, Basophils # (Auto) 0.0 Vital Signs Date Time Temp Pulse Resp B/P (MAP) Pulse Ox O2 Delivery O2 Flow Rate FiO2 05/31/19 13:14 16 05/31/19 08:05 156/67 05/31/19 07:14 97.6 61 98 05/30/19 10:20 2 I&O- Last 24 Hours up to 6 AM 05/31/19 06:00 Intake Total 570 ml Output Total 350 ml Balance 220 ml RYAN SU MD May 31, 2019 16:18
[2019-05-31] MEDS: WARFARIN SOD 7.5 MG TAB PO SCH (17:49)
[2019-05-31] MEDS: VANCOMYCIN HCL 1,000 MG, VIAL MATE ADAPTER 1 EACH in D5W 250 ML IV SCH (17:50)
[2019-05-31 20:00] VITALS: BP 160/60
[2019-05-31] MEDS ORDERED: VANCOMYCIN HCL 1,000 MG, VIAL MATE ADAPTER 1 EACH in D5W 250 ML IV SCH (21:00)
[2019-05-31] MEDS: CEFEPIME HCL 2 GM in D5W MINI-BAG PLUS 50 ML IV SCH (21:08)
[2019-05-31] MEDS: LEVEMIR (INSULIN DETEMIR) 1 UNITS/0.01ML SC SCH (21:08)
[2019-05-31] MEDS: traZODone 25MG PER 1/2 TABLET PO PRN (21:32)
[2019-06-01] VITALS (7 sets, daily range): BP systolic 120–164; BP diastolic 42–73
[2019-06-01 06:39] LABS: INR 2.33; PROTHROMBIN TIME 25.4 SECONDS (11.8-14.0)
[2019-06-01 06:42] LABS: CALCIUM LEVEL 8.4 MG/DL (8.8-10.2); CREATININE FOR GFR 4.51 MG/DL (0.70-1.30); GLOMERULAR FILTRATION RATE 14.1 (>49); POTASSIUM SERUM 3.8 MEQ/L (3.5-5.1)
[2019-06-01] MEDS: CILOSTAZOL 100 MG TAB (PLETAL) PO SCH ×2 (07:00→20:50)
[2019-06-01] MEDS ORDERED: HEPARIN 1,000 UNITS/ML 10ML VIAL (FOR RADIOLOGY& DIALYSIS ONLY) As Ordered ONE (07:05)
[2019-06-01] MEDS ORDERED: BUPIVACAINE HCL 0.5% 10 ML VIAL As Ordered ONE (07:05)
[2019-06-01] MEDS ORDERED: diphenhydrAMINE INJ 50MG/ML VIAL (J1200) As Ordered ONE (07:05)
[2019-06-01] MEDS ORDERED: LIDOCAINE 2% MDV 20 ML VIAL As Ordered ONE (07:05)
[2019-06-01] MEDS ORDERED: ISOVUE-300 61% 50ML VIAL (Q9967) As Ordered ONE (07:06)
[2019-06-01] MEDS: HumaLOG INSULIN (NovoLOG) PER UNIT SC SCH ×4 (07:30→21:02)
[2019-06-01] MEDS ORDERED: fentaNYL 100 MCG/2 ML INJECTION (J3010) As Ordered ONE (07:48)
[2019-06-01] MEDS ORDERED: MIDAZOLAM INJ 2 MG/2 ML VIAL (J2250) As Ordered ONE (07:48)
[2019-06-01] MEDS: oxyCODONE 15 MG CR TAB PO SCH ×2 (09:00→20:52)
[2019-06-01] MEDS: LACTOBACILLUS ACIDOPHILUS CAP (BACID) PO SCH (09:43)
[2019-06-01] MEDS: CitaloPRAM (CeleXA) 10 MG TABLET PO SCH (09:43)
[2019-06-01] MEDS: PANTOPRAZOLE 40MG TAB (PROTONIX) PO SCH (09:44)
[2019-06-01] MEDS: ATORVASTATIN 20 MG TAB PO SCH (09:44)
[2019-06-01] MEDS: TAMSULOSIN 0.4 MG CAP PO SCH (09:44)
[2019-06-01] MEDS: CALCIUM ACETATE 667 MG GELCAP PO SCH ×3 (09:44→17:10)
[2019-06-01] MEDS: cloNIDine 0.2 MG TAB PO SCH ×2 (09:44→20:52)
[2019-06-01] MEDS: DOCUSATE SODIUM 100 MG CAP PO SCH ×2 (09:45→20:52)
[2019-06-01] MEDS: LOSARTAN 50 MG TAB PO SCH (09:45)
[2019-06-01] MEDS: GABAPENTIN 300 MG CAP PO SCH ×2 (09:45→20:50)
[2019-06-01] MEDS: **hydrALAZINE HCL** 25 MG TAB PO SCH ×2 (09:46→20:50)
--- NOTE | 2019-06-01 13:48 | IPN ---
DATE OF SERVICE: 06/01/2019 SUBJECTIVE: The patient was seen and examined at the bedside today morning. He just came back after a left leg angiogram. He reports that he was found to have three blockages that were taken care of. Official operative report shows that he got the balloon angioplasty of multiple lesions along with one stent placement in the leg. He denies any other complaints. He was dialyzed yesterday and he tolerated the hemodialysis procedure well. OBJECTIVE: Vital signs: Temperature is 97.4 degrees Fahrenheit, blood pressure 130/42, pulse is 70, respiratory rate of 80, saturating 96% on room air. Intake and output: Ultrafiltration with hemodialysis was 2.5 liters. Weight in the bed scale is not available. PHYSICAL EXAM: General: The patient is awake, alert, oriented times three, laying in bed, in no apparent distress. Head and neck exam extraocular muscles intact. Pupils equally round and reactive to light. Mucous membranes are moist. Neck is supple. There is no jugular venous distention (JVD). Cardiovascular: S1, S2, regular rate. 1+ edema of the lower extremities. Respiratory: Chest is clear to auscultation bilaterally. Bilateral equal air entry. No rales or rhonchi. Abdomen: Soft. Positive bowel sounds. Nontender. No organomegaly. Musculoskeletal: Decreased pulses in bilateral lower extremities. He has wet gangrene in the left foot, which is covered with a dressing. Central nervous system (GAME MASTER): No focal deficit. Power is 5/5 in bilateral upper extremities. LAB REVIEW: CBC is from yesterday, which showed a hemoglobin of 9.1. BMP today showed sodium 137, potassium 3.8, chloride 98, bicarbonate 30, BUN 31, creatinine 4.5. CURRENT INPATIENT MEDICATIONS: The patient's medications were all reviewed by me. There is no change in the medications today as compared with yesterday. ASSESSMENT AND PLAN: 1. End-stage renal disease on hemodialysis. The patient was dialyzed yesterday according to his regular schedule. Next hemodialysis session will be tomorrow morning. 2. Peripheral vascular disease and wet gangrene of the left lower extremity, toes. He is currently on IV antibiotics. He is status post angiogram and angioplasty of multiple lesions along with one stent placement. Rest of the management is as per vascular surgery. 3. Hypertension. Blood pressure is optimized. Continue current dose of hydralazine, clonidine, and losartan. 4. Anemia in end-stage renal disease. Hemoglobin level is slightly suboptimal. He has been started on Aranesp with dialysis. Continue current dose.
[2019-06-01] MEDS: [UNRECOGNIZED DRUG - OTHER] XX SCH (15:02)
[2019-06-01] MEDS: **VANCO AFTER HD** MISC XX SCH (15:04)
[2019-06-01] MEDS: WARFARIN SOD 7.5 MG TAB PO SCH (17:10)
--- NOTE | 2019-06-01 17:47 | IPNPDOC ---
Text Note Date of Service The patient was seen on 06/01/19. NOTE SUBJECTIVE: Mr. Beard is a 64-year-old male with a known history of peripheral arterial disease. He is presented with wet gangrene to his left toes. The patient underwent intervention to his right lower extremity with angioplasty and stent placement. Today, the patient underwent angioplasty and placement to his left lower extremity. He is seen postoperatively; he had received fentanyl, Benadryl and Versed, and he is quite sedated and confused. He also reports pain to his left lower extremity. OBJECTIVE: Please see below for vital signs. Physical exam: HENT: Neck is supple, no adenopathy or thyromegaly, oral mucosa is moist, no scleral icterus. Cardiovascular: Regular rate and rhythm, no appreciable murmur. Pulmonary: Clear to auscultation with no wheezing or cough. Abdomen: Soft, nontender, nondistended. Extremities: Patient has fistula to Right upper extremity with palpable thrill. Left foot is currently dressed postoperatively. Neuro: Patient does have some right-sided extremity weakness that is residual from prior stroke, he has some right-sided sensory deficit from prior stroke and other sensory deficit from neuropathy. ASSESSMENT/PLAN: 1. Left lower extremity toe gangrene. This appears to involve all of his toes. Patient remains on empiric antibiotics in the form of Vanco and cefepime. MRSA screen is pending. 2. Peripheral vascular disease. The patient has undergone evaluation by arteriogram. Patient has history of right lower extremity bypass that does have some occlusion. Patient is noted to have some occlusive lesions to his left lower extremity. He has now undergone arteriogram with angioplasty and stent placement to the left lower extremity. Patient is reporting increased pain to his left foot and leg, which was absent prior to surgery. 3. Pzz-aninumc-foaovmavb diabetes mellitus. The patient continues with his current glucose management regimen. 4.Chronic kidney disease stage V. The patient is hemodialysis requiring, and he will continue his scheduled per the nephrology service. VS,Fishbone, I+O VS, Fishbone, I+O Laboratory Tests 06/01/19 05:24 Calcium Level 8.4 L Vital Signs Date Time Temp Pulse Resp B/P (MAP) Pulse Ox O2 Delivery O2 Flow Rate FiO2 06/01/19 14:00 97.2 78 18 128/46 (73) 99 06/01/19 08:45 94 06/01/19 08:40 2 I&O- Last 24 Hours up to 6 AM 06/01/19 06:00 Intake Total 1640 ml Output Total 3000 ml Balance -1360 ml RYAN SU MD Jun 01, 2019 17:47
[2019-06-01] MEDS: LEVEMIR (INSULIN DETEMIR) 1 UNITS/0.01ML SC SCH (20:53)
[2019-06-02 06:00] VITALS: BP 150/60
[2019-06-02] MEDS: LACTOBACILLUS ACIDOPHILUS CAP (BACID) PO SCH (06:10)
[2019-06-02] MEDS: cloNIDine 0.2 MG TAB PO SCH ×2 (06:10→22:06)
[2019-06-02] MEDS: ATORVASTATIN 20 MG TAB PO SCH (06:11)
[2019-06-02] MEDS: GABAPENTIN 300 MG CAP PO SCH ×2 (06:11→22:01)
[2019-06-02] MEDS: LOSARTAN 50 MG TAB PO SCH (06:11)
[2019-06-02] MEDS: CALCIUM ACETATE 667 MG GELCAP PO SCH ×3 (06:11→21:58)
[2019-06-02] MEDS: CitaloPRAM (CeleXA) 10 MG TABLET PO SCH (06:11)
[2019-06-02] MEDS: CILOSTAZOL 100 MG TAB (PLETAL) PO SCH ×2 (06:11→22:00)
[2019-06-02] MEDS: TAMSULOSIN 0.4 MG CAP PO SCH (06:12)
[2019-06-02] MEDS: DOCUSATE SODIUM 100 MG CAP PO SCH ×2 (06:12→21:00)
[2019-06-02] MEDS: PANTOPRAZOLE 40MG TAB (PROTONIX) PO SCH (06:12)
[2019-06-02] MEDS: **hydrALAZINE HCL** 25 MG TAB PO SCH ×2 (06:12→22:07)
[2019-06-02 06:13] LABS: HEMATOCRIT 31.6 % (42.0-52.0); HEMOGLOBIN 10.1 g/dl (13.5-17.5); MEAN CORPUSCULAR HEMOGLOBIN 28.6 pg (27.0-33.0); MEAN CORPUSCULAR VOLUME 89.5 fl (80.0-96.0); PLATELET COUNT, AUTOMATED 338 10^3/uL (150-450); RED BLOOD COUNT 3.53 10^6/uL (4.30-6.10); WHITE BLOOD COUNT 8.5 10^3/uL (4.0-10.0)
[2019-06-02] MEDS: oxyCODONE 5MG TAB PO PRN (06:25)
[2019-06-02 06:31] LABS: CALCIUM LEVEL 8.5 MG/DL (8.8-10.2); CREATININE FOR GFR 5.71 MG/DL (0.70-1.30); GLOMERULAR FILTRATION RATE 10.8 (>49); VANCOMYCIN RANDOM 21.3 UG/ML
[2019-06-02 06:44] LABS: INR 2.67; PROTHROMBIN TIME 28.3 SECONDS (11.8-14.0)
[2019-06-02] MEDS: oxyCODONE 15 MG CR TAB PO SCH ×2 (09:16→22:01)
[2019-06-02] MEDS: HumaLOG INSULIN (NovoLOG) PER UNIT SC SCH ×4 (09:17→21:00)
--- NOTE | 2019-06-02 10:54 | PHACANCOPD ---
PHARMACY VANCOMYCIN DOSING Pt Demographics Demographics Patient Age:64 , Weight:97.700 , Gender: male Adjusted Body Weight Date: 05/30/19, Adjusted Body Weight: [87.9] Kg Events Past 24 Hours Events Past 24 Hours: YES: Dialysis; NO: Diuretic Therapy, Change in CrCl, Fever, Elevation in WBC, Pending Diagnostics, Pending Procedures, Other Vancomycin Vancomycin indication: Toe Gangrene Vancomycin Target Ranges: 10-20 mcg/ml Vancomycin Load Y/N: Yes Load Dose Date Time Vancomycin Load Dose: 2g Date: 05/30/19 Time:21:00 Vancomycin Dose Date: 05/30/19. Current Vancomycin Dose: [1g iv q24h] Intermittent Dosing?: No Labs Labs Item Value Date Time White Blood Count 8.5 10^3/uL 06/02/19 05 White Blood Count 7.3 10^3/uL 05/31/19 0618 Creatinine 5.71 MG/DL H 06/02/19 0524 Creatinine 4.51 MG/DL H 06/01/19 0524 Creatinine 4.58 MG/DL H 05/30/19 1535 Random Vancomycin Level 21.3 UG/ML 06/02/19 0524 Random Vancomycin Level 12.1 UG/ML 05/31/19 0618 Micro Microbiology 05/30/19 MRSA Screen - Final, Complete Creatinine Clearance Date:05/30/19. Creatinine Clearance: [20.5ml/min]. Pending Labs mrsa screen Assessment and Plan Maintaining Current Dose?: Yes Reason for dose change: No Dose Change Pharmacist Note Pharmacist Note 06/02/19: Random this AM resulted @21.3mcg/ml. At this time we will continue the current dose of Vancomycin 1G IV HD. I will schedule another random for the AM before his next dialysis session to see if he continues to accumulate. If the next random is higher we will try lowering his dose. We will continue to monitor and adjust dose accordingly. 05/31/19: Random this AM resulted at 12.1mcg/ml. I have ordered an extra 500mg for this AM before dialysis. We will then continue Vanco 1G IV HD. I have ordered a random for Fri AM to ensure proper dosing. We will continue to monitor and adjust dose as needed. Date: 05/30/19. Pharmacist note:Patient will receive dialysis per Dr Cesar.Vancomycin 1 gram to be administered this evening ,Random level to be drawn tomorrow AM-Then will be dosed per HD protocol.-Will continue to follow Date: 05/30/19. Pharmacist note:Pt is a 64 year old male being treated for toe gangrene goal trough 10-20mc/gml. The pt has not been treated with vancomycin here at [facility] in the past. To achieve goal a 2g loading dose will start 05/30/19 @21:00. Maintenance therapy will consist of 1g IV every 21 hours starting 05/31/19 @21:00. We will continue to monitor and adjust the dose as needed. ORIANA PENA PHARMACY Jun 02, 2019 10:54
[2019-06-02] MEDS ORDERED: LIDOCAINE 1% SDV 5 ML VIAL SQ ONE (13:00)
[2019-06-02 14:00] VITALS: BP 126/48
[2019-06-02] MEDS: **VANCO AFTER HD** MISC XX SCH (16:00)
[2019-06-02] MEDS: [UNRECOGNIZED DRUG - OTHER] XX SCH (16:00)
--- NOTE | 2019-06-02 16:03 | IPN ---
DATE OF SERVICE: 06/02/2019DATE: SUBJECTIVE: The patient was seen and examined at bedside today morning. He is afebrile, hemodynamically stable. He reports that left leg pain is getting better now. He is scheduled for hemodialysis today in the afternoon. He denies any other active complaints. OBJECTIVE: Vital signs: Temperature is 98.8 degrees Fahrenheit, blood pressure 162/68, pulse is 73, respiratory rate of 20, saturating 94% on room air. Intake and output: Urine output recorded is 300 mL yesterday. Weight in the bed scale is 97.7 kg. PHYSICAL EXAMINATION: General: The patient is awake, alert, oriented times three, laying in bed, in no apparent distress. Head and neck exam: Extraocular muscles intact. Pupils equally round and reactive to light. Mucous membranes are moist. Neck is supple. There is no jugular venous distention (JVD). Cardiovascular: S1, S2, regular rate. 1+ edema of the lower extremity. Respiratory: Chest is clear to auscultation bilaterally. Bilateral equal air entry. No rales or rhonchi. Abdomen: Soft. Positive bowel sounds. Nontender. No organomegaly. Musculoskeletal: Decreased bowel pulses in the bilateral lower extremities and gangrene of the left foot, toes 1-4. Central nervous system (VENEER STAPLER): No focal deficit. Power is 5/5 in bilateral upper extremities. LAB REVIEW: CBC showed WBC of 8.5, hemoglobin 10.1, platelets of 338. BMP showed sodium 136, potassium 4, chloride 100, bicarbonate 30, BUN 44, creatinine is 5.7. CURRENT INPATIENT MEDICATIONS: The patient's medications were all reviewed by me. There is no change in the medications today as compared with yesterday. He continues to be on IV antibiotics. ASSESSMENT AND PLAN: 1. End-stage renal disease on hemodialysis. The patient will be dialyzed today in the afternoon. Ultrafiltration goal will be around 2.5-3 liters as tolerated by the blood pressure. 2. Peripheral vascular disease and gangrene of the left lower extremity. The patient continues to be on IV antibiotics. He got angiogram and angioplasty and stent placement yesterday. 3. Hypertension with end-stage renal disease. Continue current dose of hydralazine, clonidine and losartan. 4. Anemia in end-stage renal disease. The patient was started on Aranesp. Hemoglobin level has improved within the acceptable range.
--- NOTE | 2019-06-02 16:04 | IPNPDOC ---
Text Note Date of Service The patient was seen on 06/02/19. NOTE This is a 64 year-old male with known peripheral vascular disease. He had unde rgone intervention to the right lower extremity a couple of days ago. Yesterday he underwent intervention to the left lower extremity with angioplasty and stent placement as well. His postoperative pain is resolved. OBJECTIVE: Please see below for vital signs. Physical exam: HENT: Neck is supple, no adenopathy or thyromegaly, oral mucosa is moist, no scleral icterus. Cardiovascular: Regular rate and rhythm, no appreciable murmur. Pulmonary: Clear to auscultation with no wheezing or cough. Abdomen: Soft, nontender, nondistended. Extremities: Patient has fistula to Right upper extremity with palpable thrill. Left foot is currently dressed postoperatively, warm to touch, no pain elicited Neuro: Patient does have some right-sided extremity weakness that is residual from prior stroke, he has some right-sided sensory deficit from prior stroke and other sensory deficit from neuropathy. ASSESSMENT/PLAN: 1. Left lower extremity toe gangrene. This appears to involve all of his toes. Patient remains on empiric antibiotics in the form of Vanco and cefepime. MRSA screen is negative. Hopefully, his gangrene will resolve after this vascular intervention. 2. Peripheral vascular disease. The patient has undergone evaluation by arteriogram. Patient has history of right lower extremity bypass that had some occlusion for which he underwent angioplasty and stent placement. Patient was no kaur to have some occlusive lesions to his left lower extremity. He has now undergone arteriogram with angioplasty and stent placement to the left lower extremity. Postop pain to his leg and foot has resolved. 3. Cea-ngchbvt-pigfuyxqc diabetes mellitus. The patient continues with his current glucose management regimen. 4.Chronic kidney disease stage V. The patient is hemodialysis requiring, and he will continue his schedule per the nephrology service; he will dialyze this afternoon and we anticipate discharging him to home VS,Shannan, I+O VS, Shannan, I+O Laboratory Tests 06/02/19 05:24 Red Blood Count 3.53 L, Mean Corpuscular Volume 89.5, Mean Corpuscular Hemoglobin 28.6, Mean Corpuscular Hemoglobin Concent 32.0, Red Cell Distribution Width 15.6 H, Calcium Level 8.5 L Vital Signs Date Time Temp Pulse Resp B/P (MAP) Pulse Ox O2 Delivery O2 Flow Rate FiO2 06/02/19 14:00 97.6 78 18 126/48 (74) 98 06/01/19 08:45 94 06/01/19 08:40 2 I&O- Last 24 Hours up to 6 AM 06/02/19 06:00 Intake Total 1436 ml Output Total 300 ml Balance 1136 ml RYAN SU MD Jun 02, 2019 16:04
[2019-06-02 22:00] VITALS: BP 170/68
[2019-06-02] MEDS: CEFEPIME HCL 2 GM in D5W MINI-BAG PLUS 50 ML IV SCH (22:00)
[2019-06-02] MEDS: WARFARIN SOD 7.5 MG TAB PO SCH (22:00)
[2019-06-02] MEDS: LEVEMIR (INSULIN DETEMIR) 1 UNITS/0.01ML SC SCH (22:01)
[2019-06-02] MEDS: VANCOMYCIN HCL 1,000 MG, VIAL MATE ADAPTER 1 EACH in D5W 250 ML IV SCH (22:59)
[2019-06-03] MEDS: oxyCODONE 5MG TAB PO PRN (04:39)
[2019-06-03 05:41] VITALS: BP 164/70
[2019-06-03 06:00] VITALS: BP 164/70
[2019-06-03] MEDS: CILOSTAZOL 100 MG TAB (PLETAL) PO SCH (06:27)
[2019-06-03 08:45] VITALS: BP 164/70
[2019-06-03] MEDS: HumaLOG INSULIN (NovoLOG) PER UNIT SC SCH (08:45)
[2019-06-03] MEDS: PANTOPRAZOLE 40MG TAB (PROTONIX) PO SCH (08:45)
[2019-06-03] MEDS: LACTOBACILLUS ACIDOPHILUS CAP (BACID) PO SCH (08:45)
[2019-06-03] MEDS: TAMSULOSIN 0.4 MG CAP PO SCH (08:45)
[2019-06-03] MEDS: DOCUSATE SODIUM 100 MG CAP PO SCH (08:45)
[2019-06-03] MEDS: **hydrALAZINE HCL** 25 MG TAB PO SCH (08:45)
[2019-06-03] MEDS: cloNIDine 0.2 MG TAB PO SCH (08:46)
[2019-06-03] MEDS: oxyCODONE 15 MG CR TAB PO SCH (08:46)
[2019-06-03] MEDS: CitaloPRAM (CeleXA) 10 MG TABLET PO SCH (08:47)
[2019-06-03] MEDS: CALCIUM ACETATE 667 MG GELCAP PO SCH (08:47)
[2019-06-03] MEDS: ATORVASTATIN 20 MG TAB PO SCH (08:47)
[2019-06-03] MEDS: LOSARTAN 50 MG TAB PO SCH (08:47)
[2019-06-03] MEDS: GABAPENTIN 300 MG CAP PO SCH (08:47)
--- NOTE | 2019-06-03 17:53 | DS.PDOC ---
Discharge Summary General Date of Admission May 30, 2019 at 13:48 Date of Discharge June 03, 2019 Specialist/Consultants Involve: Owen Currie MD Specialist/Consultants Involve Dr. Cesar of the nephrology service Discharge Summary PROCEDURES PERFORMED DURING STAY: Hemodialysis, bilateral lower extremity arteriogram with angioplasty and stent placement. ADMITTING DIAGNOSES: 1. Wet gangrene to toes of left foot. DISCHARGE DIAGNOSES: 1. Peripheral arterial disease, left toe wet gangrene, Essential hypertension, history of multiple CVAs, peripheral vascular disease, chronic kidney disease stage V that is hemodialysis requiring, zlq-tepoaqa-kpkssgbnd diabetes mellitus with complications of neuropathy and vasculopathy. COMPLICATIONS/CHIEF COMPLAINT: PAD. HISTORY OF PRESENT ILLNESS/HOSPITAL COURSE: This is a 64-year-old male with a known history of peripheral vascular disease. He has required surgical intervention in the past. His mortgage loan coordinator noticed development of blisters to the lateral side of his left foot and under and between his toes. He progressed to having wet gangrene. Initial intervention consisted of arteriogram with angioplasty and stent placement to the right lower extremity. In the interim, he is in place on empiric antibiotics in the form of Vanco and cefepime. Cultures obtained were negative. The patient then underwent left lower extremity arteriogram with angioplasty and stent placement. The patient had pain immediately postprocedure. This is attributed to reperfusion and has since resolved. The patient has underlying chronic kidney disease stage V. He was maintained on a hemodialysis schedule per his heat treat technician during this hospital stay.. DISCHARGE MEDICATIONS: Please see below. ALLERGIES: Please see below. PHYSICAL EXAMINATION ON DISCHARGE: VITAL SIGNS: Please see below. HENT: Neck is supple, no adenopathy or thyromegaly, oral mucosa is moist, no scleral icterus. Cardiovascular: Regular rate and rhythm, no appreciable murmur. Pulmonary: Clear to auscultation with no wheezing or cough. Abdomen: Soft, nontender, nondistended. Extremities: Patient has fistula to Right upper extremity with palpable thrill. Left foot is currently dressed postoperatively, warm to touch, no pain elicited Neuro: Patient does have some right-sided extremity weakness that is residual from prior stroke, he has some right-sided sensory deficit from prior stroke and other sensory deficit from neuropathy. He is ambulatory with a walker and wears special diabetic shoes. LABORATORY DATA: Please see below. IMAGING: PROGNOSIS: ACTIVITY: As tolerated. DIET: Consistent carbohydrate DISCHARGE PLAN: The patient will be discharged to home. He has home care and adequate supplies for dressing changes. He will be following up as already scheduled with his health sciences manager. Dr. Terrazas within the next week. We have also advised him to follow-up with Dr. Currie in 1-2 weeks. DISPOSITION: 01 Home, Self-Care. DISCHARGE INSTRUCTIONS: 1. . ITEMS TO FOLLOWUP ON ON OUTPATIENT: 1. . DISCHARGE CONDITION: Stable. TIME SPENT ON DISCHARGE: Greater than 40 minutes. Vital Signs/I&Os Vital Signs Date Time Temp Pulse Resp B/P (MAP) Pulse Ox O2 Delivery O2 Flow Rate FiO2 06/03/19 08:46 16 06/03/19 08:45 164/70 06/03/19 06:00 99.9 75 93 06/01/19 08:45 94 06/01/19 08:40 2 I&O- Last 24 Hours up to 6 AM 06/03/19 06:00 Intake Total 1792 ml Output Total 3400 ml Balance -1608 ml Laboratory Data Labs 24H Laboratory Tests 2 06/02/19 21:47: Bedside Glucose (Misc Panel) 199H FSBS Laboratory Tests Test 06/02/19 21:47 Range/Units Bedside Glucose (Misc Panel) 199 80-115 MG/DL Microbiology Microbiology 05/30/19 MRSA Screen - Final, Complete Discharge Medications Scheduled Atorvastatin Calcium (Atorvastatin Calcium) 80 Mg Tab, 80 MG PO DAILY, (Report ed) Calcium Acetate (Calcium Acetate) 667 Mg Cap, 1,334 MG PO WM, (Reported) Cilostazol (Cilostazol) 100 Mg Tab, 100 MG PO BID, (Reported) Citalopram Hydrobromide (Citalopram HBr) 20 Mg Tab, 10 MG PO DAILY, (Reported) Clonidine HCl (Clonidine HCl) 0.2 Mg Tab, 0.2 MG PO BID, (Reported) Ergocalciferol (Vitamin D2) (Vitamin D2) 50,000 Unit Cap, 50,000 UNIT PO QWEEK, (Reported) SUNDAYS Ferrous Gluconate (Ferrous Gluconate) 324 Mg Tab, 324 MG PO TID, (Reported) Gabapentin (Neurontin) 300 Mg Cap, 300 MG PO BID, (Reported) Hydralazine HCl (Hydralazine HCl) 25 Mg Tab, 25 MG PO BID, (Reported) Insulin Glargine,Hum.rec.anlog (Lantus Solostar) 100 Unit/Ml Inj, 30 UNIT SC QHS, (Reported) Insulin Human Lispro (Humalog) 100 Unit/1 Ml Vial, 1 DOSE SC AC, (Reported) PER SLIDING SCALE Lactobacillus Acidophilus (Probiotic) 1 Each Capsule, 1 CAP PO DAILY, (Reported) Lidocaine/Prilocaine (Lidocaine-Prilocaine Cream) 30 Gm Cream..g., 1 DOSE TOP 3XW, (Reported) APPLY TO DIALYSIS PORT Losartan Potassium (Losartan Potassium) 100 Mg Tab, 100 MG PO DAILY, (Reported) Oxycodone HCl (Oxycontin) 15 Mg Tab.er.12h, 15 MG PO BID, (Reported) Pantoprazole Sodium (Pantoprazole Sodium) 40 Mg Tab, 40 MG PO DAILY, (Reported) Tamsulosin HCl (Flomax) 0.4 Mg Capsule, 0.4 MG PO DAILY, (Reported) Warfarin Sodium (Coumadin) 2.5 Mg Tab, 3.75 MG PO 6XWK, (Reported) QPM: SUN, MON, TUES, WED, FRI, SAT Warfarin Sodium (Warfarin Sodium) 2.5 Mg Tablet, 5 MG PO 1XWK, (Reported) QPM: TH Scheduled PRN Dextrose (Glucose) 4 Gm Chw, 4 GM PO ASDIRECTED PRN for BLOOD SUGAR, (Reported) FOR LOW BLOOD PRESSURE LESS THAN 70 Oxycodone HCl (Oxycodone HCl) 5 Mg Tab, 5 MG PO BID PRN for BREAKTHROUGH PAIN, (Reported) Sennosides/Docusate Sodium (Senokot-S Tablet) 1 Each Tablet, 1 TAB PO QHSP PRN for CONSTIPATION, (Reported) Trazodone HCl (Trazodone HCl) 50 Mg Tab, 25 MG PO QHS PRN for SLEEP, (Reported) Allergies Coded Allergies: No Known Allergies (Unverified , 12/08/18) RYAN SU MD Jun 03, 2019 17:53
--- NOTE | 2019-06-07 11:27 | ROOPDOC ---
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 PROCEDURE: Right common femoral arterial cannulation. Selective left common femoral arterial catheter placement with angiogram. Selective left superficial femoral arterial catheter placement with angiogram. Selective left popliteal artery catheter placement with angiogram. Left popliteal artery angioplasty and stent with a 7 mm x 120 mm Araseli drug eluding stent post dilated with a 6 mm x 200 mm [place] balloon catheter. Left superficial femoral arterial angioplasty with a 6 mm x 200 mm balloon. Left popliteal artery angioplasty with a 6 mm x 200 mm balloon. Minx closure of the right common femoral arteriotomy with a 6 Senegalese minx closure device SURGEON: Dr. Juan Currie M.D. NEON SIGN ERECTOR: Cydney Barrow INDICATION: The patient is 64-year-old male with nonhealing wounds in his left lower extremity who underwent angiography of the right and left lower extremity which showed stenosis in the superficial femoral artery above his previous bypass graft on the right and high-grade stenosis in the below-knee popliteal artery and moderate stenosis in the popliteal artery superficial femoral artery junction. Patient has nonhealing left toe ulcers and gangrene and the recommendation is to undergo left lower extremity angiogram with possible angioplasty, stent and/or atherectomy. The procedure was described and explained in detail to the patient including drawing of pictures demonstrating the procedure and pertinent anatomy. Risks, benefits and alternative treatment options were discussed with the patient. Alternative treatment options included but were not limited to no intervention. Benefits include but were not limited to evaluation of arterial inflow to the lower extremities with possible intervention improving blood flow to the lower extremities. Risks included but were not limited to infection, bleeding, renal failure requiring hemodialysis, retroperitoneal hematoma, possible need for surgical intervention, possible requirement for transfusion of blood products, contrast dye reaction, allergic reaction and/or complication from the prepping and draping materials, sedation related complication, scarring of the skin, bruising, nerve injury, anesthetic complications, cerebrovascular accident, myocardial infarction, pulmonary embolus, deep venous thrombosis, loss of limb, loss of life, poor satisfaction and poor outcome. Risks of not performing the procedure included but were not limited to worsening of current symptoms, worsening of atherosclerotic arterial occlusive disease resulting in possible limb loss and . Patient's questions were answered. Patient voices understanding of these risks, benefits and alternative treatment options. Patient voices acceptance of the risks associated with angiography with possible angioplasty, stent and/or atherectomy and agrees to proceed with the procedure excepting the associated risks of the procedure. No guarantees or promises were made to the patient or his family regarding the results or outcome of the procedure. ANESTHESIA: Local with sedation with 1 mg of Versed, 50 g of fentanyl, 50 mg of Benadryl and 20 mL of 2% lidocaine mixed with 0.5% Marcaine. SEDATION TIME: 8:02 AM to 8:43 AM for a total of 41 minutes. The sedation was administered by the registered nurse in the room under my direct supervision and direction. The cardiopulmonary monitoring during sedation was performed by the registered nurse in the room under my direct supervision and direction. Administration of sedation and cardiopulmonary monitoring were performed under my direct supervision and direction. I was present for and directed the entire case. There were no sedation related complications. Patient was stable post sedation and returned to pre-sedation status. ESTIMATED BLOOD LOSS: 15 mL IVF: 100 mL FLUORO TIME: 1.2 minutes. CONTRAST: 4 mL of Isovue 300 HEPARIN: None units PROTAMINE: None COMPLICATION: None DRAINS: None. SPECIMENS: None. IMPLANTS: Mynx closure device to close the right common femoral arteriotomy using a 6 [place]egalese minx closure device. 7 mm x 1 20 mm Araseli drug-eluting stent in the left popliteal artery PROCEDURE: The patient was taken to the angiography suite, placed supine on the angiography room table and prepped and draped in a standard surgical fashion. A procedural time out was performed by myself and the members of the team in the procedure room confirming the correct procedure, patient and laterality. The right common femoral artery was then cannulated with a micropuncture needle after anesthetizing the overlying skin and subcutaneous tissue with 2% lidoca ine. The micropuncture wire was advanced through the micropuncture needle which was upsized to a micropuncture sheath. The Butler wire was then advanced through the micropuncture sheath which was upsized to a 5 [place]egalese sheath. The Omni flush catheter was advanced over the Butler wire placed in the aorta at the level of the diaphragm. The catheter was then directed over the bifurcation of the iliac arteries using the Butler wire and placed in the left common femoral artery selectively and a left lower extremity angiogram was performed. This demonstrated mild narrowing at the junction of the left common femoral and superficial femoral artery. The catheter was then advanced into the superficial femoral artery selectively as far distal as possible, using the Butler wire, and a selective left lower extremity selective superficial femoral artery angiogram was performed. This demonstrated an approximate 60% stenosis at the superficial femoral and popliteal artery junction followed by a high-grade near occlusive lesion in the popliteal artery in the below-knee region.. The catheter and wire were then advanced into the popliteal artery and a left selective popliteal artery angiogram was performed showing the catheter and wire to be in the position within the popliteal artery after crossing the high-grade stenosis within the popliteal artery. The right common femoral 5 [place]eg[place]e sheath was ex changed for a destination 6 [place]eg[place]e sheath which was brought up and over the bifurcation and the tip of the sheath placed in the left common femoral artery. Once all the stenoses and occlusions were crossed, the popliteal artery on the left was stented with a 7 mm x 120 mm Araseli drug-eluting stent and post- angioplastied with a 6 mm x 200 mm balloon. The superficial femoral artery on the left was angioplastied with a 6 mm by 200 mm balloon. A completion angiography showed resolution of the stenosis with a superficial femoral and popliteal arteries with good flow into the tibial vessels which was preserved. The 6 [place]e destination sheath was exchanged for a short 6 [place]e sheath. Catheters and wires were removed. The arteriotomy in the right common femoral artery was closed using a 6 [place] Mynx closure device with an additional 10 min. of adjunctive pressure applied for hemostasis, which was noted. Dressings were then applied. Patient tolerated the procedure well. There were no complications. Dr. Currie was present for and directed the entire case. The patient was transferred to the holding area and subsequently to the floor. The results and description of the procedure were discussed with the patient in the postprocedure holding area with all of his questions answered. RADIOLOGIC SUPERVISION AND INTERPRETATION: SELECTIVE LEFT COMMON FEMORAL ARTERY CATHETER PLACEMENT WITH ANGIOGRAM: The selective left common femoral artery catheter angiogram showed the left common femoral artery to be patent as well as the proximal superficial femoral and profunda femoris artery. There was mild narrowing at the junction of the supe rficial femoral and femoral artery. There was calcific plaquing of the proximal superficial femoral artery. SELECTIVE LEFT SUPERFICIAL FEMORAL ARTERY CATHETER PLACEMENT WITH ANGIOGRAM: The selective left superficial femoral artery angiogram showed and a stenosis of approximately 30-40% in the mid superficial femoral artery. There was an approximate 60% stenosis in the superficial femoral popliteal artery junction there was a high-grade near occlusive lesion in the below knee popliteal artery.. SELECTIVE LEFT POPLITEAL ARTERY CATHETER PLACEMENT WITH ANGIOGRAM: The lesions of the superficial femoral and popliteal artery were crossed and a catheter placed in the popliteal artery in the below-knee region with angiogram performed confirming intraluminal positioning after crossing the high-grade annular occlusive lesions. INTERVENTION: The left below-knee and above-knee popliteal artery underwent angioplasty and stenting. The stenting was performed with a 7 mm x 120 mm Araseli drug-eluting stent. The superficial femoral and popliteal artery underwent angioplasty with the 6 mm x 200 mm balloon. The stented portion of the popliteal artery underwent angioplasty with a 6 mm x 200 mm balloon. A completion angiogram showed resolution of the stenoses within the superficial femoral and popliteal arteries with good flow into the tibial vessels below. A 6 Senegalese minx closure device was used to close the arteriotomy in the right common femoral artery. CONCLUSION: Patient underwent successful angioplasty of the left superficial femoral and popliteal arteries as well as stenting of the left popliteal artery. PLAN: Patient will require close monitoring of his blood flow to his left lower extremity and the ulcerations in his toes and may require amputation of the toes but we will allow these to demarcate considering the patient has improved blood flow to the left foot. Owen Currie MD Jun 01, 2019 11:15
== END 2019-06-03 11:22 | disposition home or self-care (01) | DRG 252 ==
LOC: M IRPRO 08:25 → M MSPAV 13:48
PROVIDERS: ADMIT Internal Medicine; ATTEND Internal Medicine
PROC: B41D1ZZ Fluoroscopy of Aorta and Bilateral Lower Extremity Arteries using Low Osmolar Contrast (ICD-10-PCS; principal; 2019-05-30 09:00)
PROC: 047N34Z Dilation of Left Popliteal Artery with Drug-eluting Intraluminal Device, Percutaneous Approach (ICD-10-PCS; 2019-06-01)
PROC: B41G1ZZ Fluoroscopy of Left Lower Extremity Arteries using Low Osmolar Contrast (ICD-10-PCS; 2019-06-01)
DX: E11.52 Type 2 diabetes mellitus with diabetic peripheral angiopathy with gangrene (principal); N18.6 End stage renal disease; I70.262 Atherosclerosis of native arteries of extremities with gangrene, left leg; I12.0 Hypertensive chronic kidney disease with stage 5 chronic kidney disease or end stage renal disease; I25.10 Atherosclerotic heart disease of native coronary artery without angina pectoris; E11.22 Type 2 diabetes mellitus with diabetic chronic kidney disease; E78.00 Pure hypercholesterolemia, unspecified; L97.529 Non-pressure chronic ulcer of other part of left foot with unspecified severity; Z86.73 Personal history of transient ischemic attack (TIA), and cerebral infarction without residual deficits; Z79.899 Other long term (current) drug therapy; Z79.4 Long term (current) use of insulin; G47.33 Obstructive sleep apnea (adult) (pediatric); Z87.442 Personal history of urinary calculi; F32.9 Major depressive disorder, single episode, unspecified; D63.1 Anemia in chronic kidney disease; Z86.718 Personal history of other venous thrombosis and embolism; Z87.891 Personal history of nicotine dependence

== ENCOUNTER 2019-06-13 10:44 | Emergency (ER) | payer MEDICARE ==
[~2019-06-13] VITALS: Ht 185.4 cm; Wt 98.2 kg
[~2019-06-13 10:44] MED LIST changes: -BUPIVACAINE HCL 0.5% 10 ML VIAL As Ordered ONE; -HEPARIN 1,000 UNITS/ML 10ML VIAL (FOR RADIOLOGY& DIALYSIS ONLY) As Ordered ONE; -ISOVUE-300 61% 50ML VIAL (Q9967) As Ordered ONE; -LIDOCAINE 2% MDV 20 ML VIAL As Ordered ONE; -MIDAZOLAM INJ 2 MG/2 ML VIAL (J2250) As Ordered ONE; -PROTAMINE SULF INJ 50 MG/5 ML VIAL (J2720) As Ordered ONE; +WARF-18 PO; -diphenhydrAMINE INJ 50MG/ML VIAL (J1200) As Ordered ONE; -fentaNYL 100 MCG/2 ML INJECTION (J3010) As Ordered ONE
[2019-06-13 12:03] LABS: BASO # 0.1 10^3/uL (0.0-0.2); BASO % 1.2 % (0.0-1.0); EOS # 0.3 10^3/uL (0.0-0.5); EOS % 4.9 % (0.0-3.0); LYMPH # 0.9 10^3/uL (1.5-5.0); LYMPH % 18.1 % (24.0-44.0); MEAN CORPUSCULAR HEMOGLOBIN 28.7 pg (27.0-33.0); MEAN CORPUSCULAR HGB CONC 32.4 g/dl (32.0-36.5); MEAN CORPUSCULAR VOLUME 88.5 fl (80.0-96.0); MONO # 0.4 10^3/uL (0.0-0.8); MONO % 8.5 % (0.0-5.0); NEUTROPHILS # 3.5 10^3/uL (1.5-8.5); NEUTROPHILS % 66.9 % (36.0-66.0); PLATELET COUNT, AUTOMATED 256 10^3/uL (150-450); RED BLOOD COUNT 4.18 10^6/uL (4.30-6.10); WHITE BLOOD COUNT 5.2 10^3/uL (4.0-10.0)
[2019-06-13 12:23] LABS: INR 1.61; PROTHROMBIN TIME 18.9 SECONDS (11.8-14.0)
[2019-06-13 12:23] LABS: ERYTHROCYTE SEDIMENTATION RATE 71 mm/hr (0-20)
[2019-06-13 12:48] LABS: ALBUMIN 3.2 GM/DL (3.2-5.2); BILIRUBIN,TOTAL 0.4 MG/DL (0.2-1.0); C REACTIVE PROTEIN QUANTITATIV 0.89 MG/DL (0.00-0.30); CALCIUM LEVEL 7.9 MG/DL (8.8-10.2); CREATININE FOR GFR 3.92 MG/DL (0.70-1.30); GLOMERULAR FILTRATION RATE 16.6 (>49); POTASSIUM SERUM 3.9 MEQ/L (3.5-5.1); TOTAL PROTEIN 7.3 GM/DL (6.4-8.2)
[2019-06-13 13:55] VITALS: BP 160/84
== END 2019-06-13 14:07 | disposition home or self-care (01) ==
LOC: M ED 10:44
DX: I96 Gangrene, not elsewhere classified (principal); E11.40 Type 2 diabetes mellitus with diabetic neuropathy, unspecified; E78.5 Hyperlipidemia, unspecified; F32.9 Major depressive disorder, single episode, unspecified; I12.0 Hypertensive chronic kidney disease with stage 5 chronic kidney disease or end stage renal disease; N18.6 End stage renal disease; Z79.01 Long term (current) use of anticoagulants; Z79.4 Long term (current) use of insulin; Z79.899 Other long term (current) drug therapy; Z95.828 Presence of other vascular implants and grafts; Z99.2 Dependence on renal dialysis

== ENCOUNTER → 2019-06-20 | Outpatient (CLI) | payer MEDICARE ==
--- NOTE | 2019-06-20 13:24 | REP ---
Bilateral lower extremity duplex arterial Doppler ultrasound: Right lower extremity: Brachial artery peak systole: AVF. Dorsalis pedis peak systole: Reversed DIETARY SERVICES DIRECTOR noncompressible. BERNICE cannot obtain. Peak Systolic Phasicity Velocity HELP DESK AGENT 333.5 monophasic Profunda 175.2 monophasic SFA prox 184 monophasic SFA mid 150.9 monophasic SFA dist 81.9 monophasic Pop 42.1 monophasic JONEL prox 75.3 monophasic Tib/P tr occluded -- DIETARY SERVICES DIRECTOR pr occluded -- DIETARY SERVICES DIRECTOR dst 123.4 monophasic JONEL dst 22.8 monophasic Left lower extremity: The the patient could not tolerate pressure evaluation of the brachial, dorsalis pedis were DIETARY SERVICES DIRECTOR. Peak Systolic Phasicity Velocity HELP DESK AGENT 315.5 monophasic Profunda 258.7 monophasic SFA prox 197 monophasic SFA mid 214.3 monophasic SFA dist 126.8 monophasic Pop 75.7 monophasic JONEL prox 96.8 monophasic Tib/P tr 68.7 monophasic DIETARY SERVICES DIRECTOR pr 152.3 monophasic DIETARY SERVICES DIRECTOR dst occluded -- JONEL dst 68.9 monophasic There is significant disease bilaterally with monophasic flow throughout bilaterally. There is a graft on the right from the mid femoral artery to the mid posterior tibial artery bypassing the occlusion . There is reversal of flow in the proximal to mid right anterior tibial artery. This is a change from 05/23/2019 but is similar to 11/30/2017 and 01/25/2018. There is a stent in the left popliteal artery to the tibioperoneal trunk that is patent. The left posterior tibial artery is occluded. Electronically Signed by Prakash Loco MD 06/20/2019 01:15 P
== END ==
LOC: M RAD 09:51
PROVIDERS: ATTEND Surgery Vascular Surgery
DX: I70.213 Atherosclerosis of native arteries of extremities with intermittent claudication, bilateral legs (principal); Z95.820 Peripheral vascular angioplasty status with implants and grafts

== ENCOUNTER 2019-07-31 10:11 | Inpatient (IN) | payer MEDICARE ==
[~2019-07-31] VITALS: Ht 185.4 cm; Wt 96.3 kg
[~2019-07-31 10:11] MED LIST changes: +ENOXAPARIN 30 MG/0.3 ML SYR (J1650) SC SCH; +LOSARTAN 50 MG TAB PO SCH
[2019-07-31 10:51] LABS: BASO % 0.7 % (0.0-1.0); EOS # 0.1 10^3/uL (0.0-0.5); EOS % 2.2 % (0.0-3.0); HEMATOCRIT 36.3 % (42.0-52.0); HEMOGLOBIN 11.8 g/dl (13.5-17.5); LYMPH # 1.1 10^3/uL (1.5-5.0); LYMPH % 18.5 % (24.0-44.0); MEAN CORPUSCULAR HEMOGLOBIN 28.3 pg (27.0-33.0); MEAN CORPUSCULAR HGB CONC 32.5 g/dl (32.0-36.5); MEAN CORPUSCULAR VOLUME 87.1 fl (80.0-96.0); MONO # 0.5 10^3/uL (0.0-0.8); MONO % 8.8 % (0.0-5.0); NEUTROPHILS # 4.1 10^3/uL (1.5-8.5); NEUTROPHILS % 69.5 % (36.0-66.0); PLATELET COUNT, AUTOMATED 223 10^3/uL (150-450); RED BLOOD COUNT 4.17 10^6/uL (4.30-6.10); WHITE BLOOD COUNT 5.9 10^3/uL (4.0-10.0)
--- NOTE | 2019-07-31 11:00 | REP ---
Portable chest, 10:37 a.m., single AP view with the patient sitting: Comparisons are the portable chest dated 05/16/2019 and the PA and lateral chest dated 08/04/2016. There is mild diffuse bilateral interstitial coarsening, similar to 05/16/2019 but a change from the PA and lateral chest of 08/04/2016. There is an incomplete inspiratory effort, similar to 05/16/2019. The inspiratory effort on 08/04/2016 was normal. The suspected interstitial coarsening could be secondary to incomplete inspiratory effort or could represent interstitial infiltrates or interstitial lung disease. The lung knutson otherwise clear. Cardiac size is normal for portable positioning. The helio, mediastinum, skeletal structures are unremarkable except for a cervical spine stabilization plate, Impression: Incomplete inspiratory effort as described. Interstitial coarsening as described. Electronically Signed by Prakash Loco MD 07/31/2019 10:51 A
[2019-07-31 11:21] LABS: BLOOD UREA NITROGEN 36 MG/DL (7-18); CALCIUM LEVEL 7.9 MG/DL (8.8-10.2); CARBON DIOXIDE LEVEL 26 MEQ/L (21-32); CHLORIDE LEVEL 101 MEQ/L (98-107); CPK CREATINE PHOSPHOKINASE 316 U/L (39-308); CREATININE FOR GFR 4.09 MG/DL (0.70-1.30); GLOMERULAR FILTRATION RATE 15.8 (>49); GLUCOSE, FASTING 128 MG/DL (70-100); MAGNESIUM LEVEL 1.6 MG/DL (1.8-2.4); MB/CK RELATIVE INDEX 2.53 (< OR =4); POTASSIUM SERUM 3.8 MEQ/L (3.5-5.1); SODIUM LEVEL 137 MEQ/L (136-145); TROPONIN I < 0.02 NG/ML (< 0.10)
[2019-07-31] MEDS ORDERED: MAG SULF 1GM/100ML (MAG RUN) 1 GM in IV 1 EA IV ONE (11:30)
[2019-07-31] MEDS ORDERED: SANT250O8 TOP (11:46)
[2019-07-31] MEDS ORDERED: SENOKOT S TAB PO PRN (14:15)
[2019-07-31] MEDS ORDERED: GLUCOSE 4 GM CHEW TABLET PO PRN ×2 (14:15→15:45)
[2019-07-31] MEDS ORDERED: SANTYL OINT 30GM TOP PRN (14:15)
[2019-07-31] MEDS ORDERED: traZODone 50 MG TAB PO PRN (14:15)
[2019-07-31] MEDS: TAMSULOSIN 0.4 MG CAP PO SCH (15:40)
[2019-07-31] MEDS: ATORVASTATIN 20 MG TAB PO SCH (15:40)
[2019-07-31] MEDS: PANTOPRAZOLE 40MG TAB (PROTONIX) PO SCH (15:40)
[2019-07-31] MEDS: CitaloPRAM (CeleXA) 20 MG TAB PO SCH (15:40)
[2019-07-31] MEDS ORDERED: PILL CUTTER 1 EACH XX PRN (15:45)
[2019-07-31] MEDS ORDERED: GLUCAGON FOR INJ 1 MG VIAL (J1610) SC PRN (15:45)
[2019-07-31] MEDS ORDERED: DEXTROSE 50% 50 ML SYRINGE IV PRN (15:45)
--- NOTE | 2019-07-31 15:49 | HPEPDOC ---
General Date of Admission 07/31/2019 Date of Service: Jul 31, 2019 Chief Complaint The patient is a 64-year-old male admitted with a reason for visit of cp. Source: Patient Exam Limitations: No limitations Timing/Duration: Day(s) Severity: Moderate Associated Symptoms: Chest Pain, Cough, Nausea, Vomiting History of Present Illness 64 yo retired [employer] with essential hypertension, history of multiple strokes, peripheral vascular disease, end-stage renal disease on HD MWF, patient of Dr. Jeong, diabetes mellitus with neuropathy and vasculopathy who was brought into the ED for evaluation per nephrology after developing chest pain while in HD today and had an EKG that showed a supraventricular tachycardia with RVR while hemodynamically stable and on room air, in the setting having missed HD on wednesday 2/ illness with nausea, emesis, non bloody diarrhea, abdominal pain of a few days without fever, chills, rashes, dysuria, hematuria, hematochezia, melena or asymmetric weakness. Ms. Beard presented for HD this morning not having taken any of his medications today yet, and reports having developed sharp left sided substernal pain that lasted for a few minutes and subsided without intervention. He reports having been 2 hours into his HD session when the episode occured that prompted his transfer to the ED. In the ED, he arrived hypertensive with BP 193/86, HR 79, RR18, saturating 98% on room air. Initial work up was notable for negative troponin, CK 316, EKG with normal sinus rhythm with no ischemic changes, hypomagnesemia to 1.6, K 3.8, Cr 4.09, WBC 5.9, H/H 11.8/36.3 and CXR with poor inspiratory effort and interstitial coarsening. He was given 1g of magnesium sulfate and admitted to hospitalist with consultation to nephrology. On evaluation, he is on room air, speaking in full sentences, with bilateral LE edema, regular rate and rhythm with, and in sinus on telemetry and asking why he is being admitted. I explained that he had a brief episode of an arrhythmia and found to have electrolyte derrangements and will be admitted to medicine with nephrology onboard for observation while we investigate his recent illness. Home Medications Scheduled Atorvastatin Calcium (Atorvastatin Calcium) 80 Mg Tab, 80 MG PO DAILY, (Reported) Calcium Acetate (Calcium Acetate) 667 Mg Cap, 1,334 MG PO WM, (Reported) Cilostazol (Cilostazol) 100 Mg Tab, 100 MG PO BID, (Reported) Citalopram Hydrobromide (Citalopram HBr) 20 Mg Tab, 10 MG PO DAILY, (Reported) Clonidine HCl (Clonidine HCl) 0.2 Mg Tab, 0.2 MG PO BID, (Reported) Ergocalciferol (Vitamin D2) (Vitamin D2) 50,000 Unit Cap, 50,000 UNIT PO QWEEK, (Reported) SUNDAYS Ferrous Gluconate (Ferrous Gluconate) 324 Mg Tab, 324 MG PO TID, (Reported) Gabapentin (Neurontin) 300 Mg Cap, 300 MG PO BID, (Reported) Hydralazine HCl (Hydralazine HCl) 25 Mg Tab, 25 MG PO BID, (Reported) Insulin Glargine,Hum.rec.anlog (Lantus Solostar) 100 Unit/Ml Inj, 30 UNIT SC QHS, (Reported) Insulin Human Lispro (Humalog) 100 Unit/1 Ml Vial, 1 DOSE SC AC, (Reported) PER SLIDING SCALE Lactobacillus Acidophilus (Probiotic) 1 Each Capsule, 1 CAP PO DAILY, (Reported) Lidocaine/Prilocaine (Lidocaine-Prilocaine Cream) 30 Gm Cream..g., 1 DOSE TOP 3XW, (Reported) APPLY TO DIALYSIS PORT Losartan Potassium (Losartan Potassium) 100 Mg Tab, 100 MG PO DAILY, (Reported) Oxycodone HCl (Oxycontin) 15 Mg Tab.er.12h, 15 MG PO BID, (Reported) Pantoprazole Sodium (Pantoprazole Sodium) 40 Mg Tab, 40 MG PO DAILY, (Reported) Tamsulosin HCl (Flomax) 0.4 Mg Capsule, 0.4 MG PO DAILY, (Reported) Warfarin Sodium (Coumadin) 2.5 Mg Tab, 3.75 MG PO 6XWK, (Reported) QPM: SUN, MON, TUES, WED, FRI, SAT Warfarin Sodium (Warfarin Sodium) 2.5 Mg Tablet, 5 MG PO 1XWK, (Reported) QPM: THURS Scheduled PRN Collagenase Clostridium Hist. (Santyl) 30 Gm Oint...g., 1 DOSE TOP DAILY PRN for WOUND CARE, (Reported) Dextrose (Glucose) 4 Gm Chw, 4 GM PO ASDIRECTED PRN for BLOOD SUGAR, (Reported) FOR LOW BLOOD PRESSURE LESS THAN 70 Oxycodone HCl (Oxycodone HCl) 5 Mg Tab, 5 MG PO BID PRN for BREAKTHROUGH PAIN, (Reported) Sennosides/Docusate Sodium (Senokot-S Tablet) 1 Each Tablet, 1 TAB PO QHSP PRN for CONSTIPATION, (Reported) Trazodone HCl (Trazodone HCl) 50 Mg Tab, 25 MG PO QHS PRN for SLEEP, (Reported) Allergies Coded Allergies: No Known Allergies (Unverified , 12/08/18) Past Medical History Medical History Hypertension, history of multiple strokes, peripheral vascular disease, end- stage renal disease or chronic kidney disease stage V, zky-[id number] diabetes mellitus with neuropathy and vasculopathy, PAD. Surgical History Fistula placement for hemodialysis, prior mentioned right lower extremity bypass, C7 fusion, bilateral inguinal hernia repair, left fifth toe amputation in the past Family History Significant history of Heart disease There is maternal history of dementia. There is a sibling with diabetes. No other family members had notable kidney disease. 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 States his CODE STATUS is to be DNR/DNI. His brother, Vishal is designated as his power of attorney law clerk. He has a MOLST form from 2016 in the medical record and he states that it still stands. A-FIB/CHADSVASC A-FIB History Current/History of A-Fib/PAF?: Yes Current PO Anticoag Therapy: Yes Age/Risk Factor Scoring CHADSVASC: CHADSVASC Response (Comments) Value Age Risk Factor Age < 65 years old 0 Gender Risk Factor Male 0 Hx of HTN Yes 1 Hx of Stroke/TIA/or VTE Yes 2 Hx of Diabetes Yes 1 Hx of Vascular Disease Yes 1 Total 5 Treatment Treatment ordered: Warfarin Review of Systems Constitutional: Denies: Chills, Fever, Night Sweats Eyes: Denies: Pain, Vision change ENT: Denies: Head Aches, Ear Pain, Dysphagia Skin: Denies: Rash, Lesions, Breakdown Pulmonary: Denies: Dyspnea, Cough Cardiovascular: Reports: Chest Pain, Palpitations, Edema; Denies: Orthopnea, Paroxysmal Noc. Dyspnea, Lt Headedness Gastrointestinal: Reports: Nausea, Vomiting, Abdominal Pain, Diarrhea; Denies: Constipation, Melena, Hematochezia Genitourinary: Denies: Dysuria, Frequency, Incontinence, Hematuria, Retention Hematologic: Denies: Bruising, Bleeding Excessively Endocrine: Denies: Polydipsia, Polyphagia, Polyuria, Heat Intolerance, Cold Intolerance Musculoskeletal: Reports: Back Pain, Muscle Pain, Spasms Neurological: Denies: Weakness, Numbness, Incoordination, Change in speech, Confusion, Seizures Psych: Reports: Mood Normal; Denies: Anxiety, Memory Issues Vital Signs Vital Signs Date Time Temp Pulse Resp B/P (MAP) Pulse Ox O2 Delivery O2 Flow Rate FiO2 07/31/19 11:17 Room Air 07/31/19 10:24 97.3 79 18 193/86 (121) 98 Laboratory Data Labs 24H Laboratory Tests 2 07/31/19 10:37: Immature Granulocyte % (Auto) 0.3, Neutrophils (%) (Auto) 69.5H, Lymphocytes (%) (Auto) 18.5L, Monocytes (%) (Auto) 8.8H, Eosinophils (%) (Auto) 2.2, Basophils (%) (Auto) 0.7, Neutrophils # (Auto) 4.1, Lymphocytes # (Auto) 1.1L, Monocytes # (Auto) 0.5, Eosinophils # (Auto) 0.1, Basophils # (Auto) 0.0, Nucleated Red Blood Cells % (auto) 0.0, Anion Gap 10, Glomerular Filtration Rate 15.8L, Calcium Level 7.9L, Magnesium Level 1.6L, Total Creatine Kinase 316H, Creatine Kinase MB 8.0H, Creatine Kinase MB Relative Index 2.53, Troponin I < 0.02 CBC/BMP Laboratory Tests 07/31/19 10:37 Assessment/Plan 64 yo retired [employer] with essential hypertension, history of multiple strokes, peripheral vascular disease, end-stage renal disease on HD MWF, patient of Dr. Jeong, diabetes mellitus with neuropathy and vasculopathy who was brought into the ED for evaluation per nephrology after developing chest pain while in HD today and had an EKG that showed a supraventricular tachycardia with RVR while hemodynamically stable and on room air and was found back in sinus rhythm by the time he was in the ED with studies notable for hypomagnesemia and hypocalcemia all in the setting of a recent history of N/V/D that is now remitting c/f viral gastroenteritis. Hypertensive urgency in the setting of missed HD -Nephrology consult -restart home meds: clonidine 0.2 BID, losartan 100 QD, hydralazine 25 BID Insulin dependent diabetes -Levemir 30 QHS -SSI -FSBG AC/HS -hypoglycemia protocol ESRD on HD, likely 2/2 diabetic nephropathy, patient of Dr. Jeong -Sent from HD after 1/2 a session and having missed a session on Wednesday due to N/V/D and feeling ill for days -Nephrology consult to Dr. Cesar -Daily electrolytes -phoslo with meals -Vit D [id number] Qweekly, next 08/06 -continue iron supplementation Transient supraventricular tachyarrhythmia: c/f transient Aflutter and sinus tach per EKG in ED chart that was printed from dialysis -Telemetry -s/p 1g mag sulfate --> recheck and keep >2 -AM BMP -Patient is already on full anticoagulation with warfarin from history of peripheral thromboses PVD: -cilostazol Chronic pain: -Gabapentib 300 BID -Oxycontin 15 BID Depression: -continue home celexa -continue trazodone 25 QHS PRn for insomnia Hyperlipidemia: -Lipitor 40 GERD: -protonix 40 QD BPH: -0.4mg tamsulosin Recent N/V/D without fever, leukocytosis and self resolving: likely viral gastroenteritis -will check blood cultures -low suspicion of active infection, no antibiotics DVT prophylaxis: on warfarin for history of LE and UE DVT Dispo: pending BP control, nephrology consult, telemetry monitoring of tachyarrhythmias Plan / VTE VTE Prophylaxis Ordered?: Yes CARLENE CORBIN MD Jul 31, 2019 15:17
--- NOTE | 2019-07-31 16:33 | ECGEPIP ---
[facility] - ED Test Date: 2019-07-31 Pat Name: LUPE MAYERS Department: Room: - Gender: Male Psychosocial Rehabilitation Counselor: : [id number] Requested By: Rajan Basurto Order Number: [id number] Reading MD: Kaykay David Measurements Intervals [place] Rate: 79 P: 47 CT: 169 QRS: 45 QRSD: 93 T: 74 QT: 407 QTc: 469 Interpretive Statements SINUS RHYTHM LEFT VENTRICULAR HYPERTROPHY AND ST-T CHANGE PROLONGED QTC INCREASED RATE 05/16/19 Electronically Signed on 07-31-2019 16:33:46 EST by Kaykay David
[2019-07-31 18:26] VITALS: BP 164/66
[2019-07-31] MEDS: FERROUS GLUCONATE 324 MG TAB PO SCH ×2 (19:17→20:36)
[2019-07-31] MEDS: HumaLOG INSULIN (NovoLOG) PER UNIT SC SCH ×2 (19:18→21:00)
[2019-07-31] MEDS: CALCIUM ACETATE 667 MG GELCAP PO SCH (19:41)
[2019-07-31] MEDS: CILOSTAZOL 100 MG TAB (PLETAL) PO SCH ×2 (19:41→19:43)
[2019-07-31 20:00] VITALS: BP 209/85
[2019-07-31] MEDS: LEVEMIR (INSULIN DETEMIR) 1 UNITS/0.01ML SC SCH (20:35)
[2019-07-31] MEDS: GABAPENTIN 300 MG CAP PO SCH (20:36)
[2019-07-31] MEDS: **hydrALAZINE HCL** 25 MG TAB PO SCH (20:36)
[2019-07-31] MEDS: oxyCODONE 15 MG CR TAB PO SCH (20:38)
[2019-07-31] MEDS: cloNIDine 0.2 MG TAB PO SCH (20:39)
[2019-07-31] MEDS: WARFARIN SOD 7.5 MG TAB PO SCH (20:40)
[2019-07-31 21:30] VITALS: BP 186/60
[2019-08-01] VITALS: BP 178/66
[2019-08-01 04:00] VITALS: BP 182/68
[2019-08-01] MEDS: oxyCODONE 5MG TAB PO PRN ×2 (05:56→14:54)
[2019-08-01 06:16] LABS: HEMATOCRIT 33.4 % (42.0-52.0); HEMOGLOBIN 10.9 g/dl (13.5-17.5); MEAN CORPUSCULAR HEMOGLOBIN 28.3 pg (27.0-33.0); MEAN CORPUSCULAR HGB CONC 32.6 g/dl (32.0-36.5); MEAN CORPUSCULAR VOLUME 86.8 fl (80.0-96.0); PLATELET COUNT, AUTOMATED 222 10^3/uL (150-450); RED BLOOD COUNT 3.85 10^6/uL (4.30-6.10); WHITE BLOOD COUNT 5.7 10^3/uL (4.0-10.0)
[2019-08-01 06:25] LABS: INR 2.45; PROTHROMBIN TIME 26.4 SECONDS (11.8-14.0)
[2019-08-01 06:36] LABS: ALBUMIN 3.4 GM/DL (3.2-5.2); BILIRUBIN,TOTAL 0.5 MG/DL (0.2-1.0); CALCIUM LEVEL 7.9 MG/DL (8.8-10.2); CREATININE FOR GFR 5.02 MG/DL (0.70-1.30); GLOMERULAR FILTRATION RATE 12.5 (>49); MAGNESIUM LEVEL 1.7 MG/DL (1.8-2.4); POTASSIUM SERUM 3.9 MEQ/L (3.5-5.1)
[2019-08-01] MEDS: HumaLOG INSULIN (NovoLOG) PER UNIT SC SCH ×4 (07:30→20:38)
[2019-08-01 08:18] VITALS: BP 158/64
[2019-08-01] MEDS: CILOSTAZOL 100 MG TAB (PLETAL) PO SCH ×2 (08:30→17:32)
[2019-08-01] MEDS: CALCIUM ACETATE 667 MG GELCAP PO SCH ×3 (08:30→17:32)
[2019-08-01] MEDS: TAMSULOSIN 0.4 MG CAP PO SCH (08:31)
[2019-08-01] MEDS: ATORVASTATIN 20 MG TAB PO SCH (08:31)
[2019-08-01] MEDS: LOSARTAN 50 MG TAB PO SCH (08:31)
[2019-08-01] MEDS: PANTOPRAZOLE 40MG TAB (PROTONIX) PO SCH (08:32)
[2019-08-01] MEDS: cloNIDine 0.2 MG TAB PO SCH ×2 (08:32→20:38)
[2019-08-01] MEDS: FERROUS GLUCONATE 324 MG TAB PO SCH ×3 (08:33→20:35)
[2019-08-01] MEDS: **hydrALAZINE HCL** 25 MG TAB PO SCH ×2 (08:33→20:37)
[2019-08-01] MEDS: GABAPENTIN 300 MG CAP PO SCH ×2 (08:33→20:38)
[2019-08-01] MEDS: CitaloPRAM (CeleXA) 20 MG TAB PO SCH (08:40)
[2019-08-01] MEDS: oxyCODONE 15 MG CR TAB PO SCH ×2 (10:41→20:37)
--- NOTE | 2019-08-01 12:18 | IPNPDOC ---
Subjective Date Seen The patient was seen on 08/01/19. Subjective Chief Complaint/HPI jenn today mentions that he has been having episodes of dizzy spells at home for the past 2 weeks and also he was SOB more than normal this last 2 weeks. He would get short of breath walking from the lift chair to the dining room . His balance is poor and needs a walker. Last night he had an episode of brief chest tightness and dizziness when he was told that his heart rate was high. Objective Physical Examination General Exam: Positive: Alert, Cooperative, No Acute Distress Eye Exam: Positive: PERRLA, Conjunctiva & lids normal, EOMI; Negative: Sclera icteric ENT Exam: Positive: Atraumatic, Mucous membr. moist/pink, Pharynx Normal Neck Exam: Positive: Other (neck with restricted motion due to prior fusion. ); Negative: JVD, thyromegaly Chest Exam: Positive: Clear to auscultation, Normal air movement Heart Exam: Positive: Rate Normal, Regular Rhythm, Normal S1, Normal S2; Negative: Murmurs, Rubs Telemetry: Positive: Atrial fibrillation (SVT/ a fib about 5 mins on 07/31/19 at 9:30 pm) Abdomen Exam: Positive: Normal bowel sounds, Soft; Negative: Tenderness, Hepatospenomegaly Extremity Exam: Positive: Edema (right. left) Skin Exam: Positive: Nl turgor and temperature; Negative: Rash, Breakdown Neuro Exam: Positive: Other (right hemiparesis mild ) Psych Exam: Positive: Memory Intact, Oriented x 3 Assessment /Plan Assessment 64 yo retired [employer] with essential hypertension, history of multiple strokes, peripheral vascular disease, end-stage renal disease on HD MWF, patient of Dr. Jeong, diabetes mellitus with neuropathy and vasculopathy who was brought into the ED for evaluation per nephrology after developing chest pain while in HD today and had an EKG that showed a supraventricular tachycardia with RVR while hemodynamically stable and on room air and was found back in sinus rh ythm by the time he was in the ED with studies notable for hypomagnesemia and hypocalcemia all in the setting of a recent history of N/V/D that is now remitting c/f viral gastroenteritis Paroxysmal Afib/ SVT very short duration 4 to 5 mins seen on monitor with symptoms of dizziness and chest tightness spontaneously corrected to sinus Transient supraventricular tachyarrhythmia: c/f transient Aflutter and sinus tach per EKG in ED chart that was printed from dialysis will continue on tele, will get another EKG for better rhythm if has tachycardia again. [facility] if symptoms recur will consult in house. On coumadin for peripheral arterial disease with thrombosis with therapeutic INR. Hypertensive urgency in the setting of missed HD restart home meds: clonidine 0.2 BID, losartan 100 QD, hydralazine 25 BID Insulin dependent diabetes Levemir 30 QHS SSI FSBG AC/HS hypoglycemia protocol ESRD on HD, likely 2/2 diabetic nephropathy, patient of Dr. Jeong Sent from HD after 1/2 a session and having missed a session on Wednesday due to N/V/D and feeling ill for days Nephrology consult to Dr. Cesar Daily electrolytes phoslo with meals Vit D [id number] Qweekly, next 08/06 continue iron supplementation PVD: cilostazol Chronic pain: Gabapentin 300 BID Oxycontin 15 BID Depression: continue home celexa continue trazodone 25 QHS PRn for insomnia Hyperlipidemia: Lipitor 40 Old Multiple CVAs with residual right hemiparesis leg more than arm. GERD: protonix 40 QD BPH: 0.4mg tamsulosin Recent N/V/D without fever, leukocytosis and self resolving: likely viral gastroenteritis will check blood cultures low suspicion of active infection, no antibiotics DVT prophylaxis: on warfarin for history of LE and UE DVT Dispo: pending BP control, nephrology consult, telemetry monitoring of tachyarrhythmias Plan/VTE VTE Prophylaxis Ordered?: Yes VS, I&O, 24H, Shannan Vital Signs/I&O Vital Signs Date Time Temp Pulse Resp B/P (MAP) Pulse Ox O2 Delivery O2 Flow Rate FiO2 08/01/19 10:41 20 Room Air 08/01/19 08:33 158/64 08/01/19 08:18 97.3 68 96 I&O- Last 24 Hours up to 6 AM 08/01/19 06:00 Intake Total 290 ml Output Total 200 ml Balance 90 ml Laboratory Data 24H LABS Laboratory Tests 2 07/31/19 19:14: Bedside Glucose (Misc Panel) 163H 08/01/19 05:55: Nucleated Red Blood Cells % (auto) 0.0, Prothrombin Time 26.4H, Prothromb Time International Ratio 2.45, Anion Gap 7L, Glomerular Filtration Rate 12.5L, Calcium Level 7.9L, Magnesium Level 1.7L, Total Bilirubin 0.5, Aspartate Amino Transf (AST/SGOT) 24, Alanine Aminotransferase (ALT/SGPT) 29, Alkaline Phosphatase 144H, Total Protein 8.0, Albumin 3.4, Albumin/Globulin Ratio 0.74L CBC/BMP Laboratory Tests 08/01/19 05:55 Microbiology Microbiology 07/31/19 Blood Culture, Received Pending KALYAN RIVERA MD Aug 01, 2019 12:12
[2019-08-01 16:00] VITALS: BP 178/70
[2019-08-01] MEDS ORDERED: MAG SULF 1GM/100ML (MAG RUN) 1 GM in IV 1 EA IV ONE (17:00)
[2019-08-01] MEDS: WARFARIN SOD 7.5 MG TAB PO SCH (17:31)
[2019-08-01 20:00] VITALS: BP 172/68
[2019-08-01] MEDS: LEVEMIR (INSULIN DETEMIR) 1 UNITS/0.01ML SC SCH (20:35)
--- NOTE | 2019-08-01 21:22 | CR ---
DATE OF CONSULTATION: 08/01/2019 REQUESTING PHYSICIAN: Dr. Victorina Cruz CONSULTING PHYSICIAN: Dr. Cesar REASON FOR CONSULTATION: Management of end-stage renal disease and hemodialysis. CHIEF COMPLAINT: The patient was sent from dialysis center yesterday because of irregular heart rate during dialysis. HISTORY OF PRESENT ILLNESS: Mr. Owen Beard is a 64-year-old male with a past medical history of end-stage renal disease, on hemodialysis every Wednesday, Wednesday, Wednesday, well known to nephrology service from previous hospitalizations and from outpatient hemodialysis center. Multiple other comorbidities as mentioned below including severe peripheral vascular disease, diabetes mellitus type 2 with peripheral neuropathy. She was being dialyzed yesterday and almost at 2-1/2 hours into the dialysis, she started having palpitations and chest pain. Dialysis was stopped earlier and emergency medical services (EMS) was called. The patient was found to have atrial fibrillation with rapid ventricular response (RVR). He was transferred to the emergency room for further evaluation. In the emergency room, he was actually found to be hypertensive with systolic blood pressure 193. His troponins were negative. Repeat EKG showed he was in sinus rhythm. His magnesium level was low at 1.6, so he was given IV magnesium. He was admitted under the hospitalist service last night for further evaluation to be done by cardiology. Nephrology service was called for further help in the management of end-stage renal disease and to evaluate if patient needs further dialysis since he could not finish his dialysis yesterday. I saw and evaluated the patient today morning at the bedside. He denies any chest pain or shortness of breath. He is afebrile and hemodynamically stable, and he denies any active complaints. The patient reported that he was already scheduled to see cardiology in [place]. He gets most of his care, including vascular and cardiology care, at [facility] in [place], but he was going to have his cardiology care transferred to [place]. He has not seen cardiology as an outpatient in [place] so far. PAST MEDICAL HISTORY: End-stage renal disease, on hemodialysis every Wednesday, Wednesday, Wednesday. History of peripheral vascular disease. Diabetes mellitus type 2, insulin dependent. Hypertension. History of multiple CVAs in the past. History of wet gangrene in left lower extremity. PAST SURGICAL HISTORY: Status post arteriovenous (AV) fistula placement. History of right lower extremity vascular bypass. History of C7 fusion surgery. Bilateral inguinal hernia repair. Left fifth toe amputation. ALLERGIES: No known drug allergies. FAMILY HISTORY: No significant family history of end-stage renal disease requiring hemodialysis. SOCIAL HISTORY: The patient is a former smoker. He denies any smoking, illicit drug abuse or alcohol abuse. REVIEW OF SYSTEMS: Constitutional: He denies any fevers or chills. Eyes: He denies any blurry vision, double vision. Ears, Nose and Throat (ENT): Denies any dysphagia, odynophagia, ear discharge. Cardiovascular: He reports chest pain and palpitations yesterday, but he denies any active complaints at this time. Respiratory: He denies any shortness of breath or cough. Gastrointestinal (GI) He denies any nausea or vomiting. Genitourinary: He denies any dysuria or hematuria. Musculoskeletal: He denies any muscle aches and pains. Skin: He denies any rashes or ulcers apart from healing wound. Psychiatric: He denies any depression or anxiety. All other review of systems negative. PHYSICAL EXAMINATION: General: The patient is awake, alert, oriented times three, laying in bed in no apparent distress. Vital signs: Temperature is 97.3 degrees Fahrenheit, blood pressure 158/64, pulse is 68, respiratory rate of 18, saturating 96% on room air. Head and neck exam: Extraocular muscles intact. Pupils equally round and reactive to light. Mucous membranes are moist. Neck is supple. There is no jugular venous distention (JVD). Cardiovascular: S1, S2, regular rate. 1+ edema of the bilateral lower extremities. Respiratory: Chest is clear to auscultation bilaterally. Bilateral equal air entry. No rales or rhonchi. Abdomen: Soft, positive bowel sounds. Nontender. No organomegaly. Genitourinary: Bladder is not palpable. No hernias noted. Musculoskeletal: The patient has peripheral vascular disease. Pulses are 1+, 1+ edema of the bilateral lower extremities. Central nervous system (COMMUNICATIONS REPRESENTATIVE): No focal deficit. Power is 5/5 in all extremities. LAB REVIEW: CBC showed a WBC of 5.7, hemoglobin 10.9, platelets are 222. BMP showed sodium 139, potassium 3.9, chloride 103, bicarbonate 29, BUN 48, creatinine is 5, calcium 7.9, magnesium 1.7, alkaline phosphatase is 144. Troponin was less than 0.02 yesterday. Microbiology: Blood cultures are pending. IMAGING: A chest x-ray was done yesterday, which showed interstitial coarsening and incomplete inspiratory effort. CURRENT INPATIENT MEDICATIONS: The patient's medications were all reviewed by me. He was given a dose of magnesium sulfate 1 gram IV today - morning. He is on Lipitor 80 mg daily, PhosLo 1334 mg by mouth with meals, cilostazol 100 mg by mouth twice a day, Celexa 10 mg by mouth daily, clonidine 0.2 mg by mouth twice a day, Santyl for wound care, Senokot one tablet by mouth as needed for constipation, iron tablet 324 mg by mouth three times a day, gabapentin 300 mg by mouth twice a day, hydralazine 25 mg by mouth twice a day, insulin Levemir 30 units subcu nightly, insulin lispro sliding scale, losartan 100 mg daily, OxyContin 15 mg by mouth twice a day, Protonix 40 mg by mouth daily, Flomax 0.4 mg by mouth daily, trazodone 25 mg nightly, vitamin D 50,000 units by mouth once a week, warfarin 5 mg by mouth on and 3.75 mg by mouth on the rest of the days. ASSESSMENT: A 64-year-old male with a past medical history of end-stage renal disease, on hemodialysis every Wednesday, Wednesday, Wednesday, history of diabetes mellitus type 2, insulin dependent, peripheral vascular disease, hypertension, admitted this time with hypertensive urgency and atrial fibrillation. Nephrology service following the patient for management of end-stage renal disease and dialysis. PLAN: 1. End-stage renal disease, on hemodialysis. The patient's regular dialysis days are Wednesday, Wednesday, Wednesday. He was dialyzed yesterday. It was cut shot after about 2-1/2 hours because chest pain and atrial fibrillation. No urgent need of dialysis to be done today. The patient's dialysis will be done tomorrow morning as per his regular schedule. 2. Hypertension with end-stage renal disease. Continue current dose of clonidine 0.2 mg by mouth twice a day, hydralazine 25 mg by mouth twice a day, losartan 100 mg by mouth daily. 3. Anemia in end-stage renal disease, hemoglobin is 10.9 which is optimal. No need of Aranesp administration at this time. 4. Chronic kidney disease, mineral bone disease. Continue current dose of PhosLo 1334 mg by mouth with meals. 5. Peripheral vascular disease. Continue current dose of Lipitor 80 mg daily, cilostazol 100 mg by mouth twice a day, and patient is already anticoagulated with warfarin. 6. Paroxysmal atrial fibrillation and supraventricular tachycardia (SVT). The patient was already given magnesium. Potassium level is within the acceptable range. The patient has extensive peripheral vascular disease. It is possible he might have of coronary artery disease as well. The patient needs to be evaluated by cardiology. 7. Diabetes mellitus type 2, insulin dependent. Continue current dose of Levemir and insulin sliding scale. Thank you for involving me in the care of this patient. I shall be happy to follow the patient along with you tomorrow morning.
[2019-08-02] VITALS: BP 164/58
[2019-08-02 04:00] VITALS: BP 174/64
[2019-08-02] MEDS: oxyCODONE 5MG TAB PO PRN (05:31)
[2019-08-02] MEDS: ACETAMINOPHEN TAB 650MG DOSE (2X325MG) PO PRN (06:41)
[2019-08-02] MEDS: HumaLOG INSULIN (NovoLOG) PER UNIT SC SCH ×4 (07:30→21:00)
[2019-08-02] MEDS: CILOSTAZOL 100 MG TAB (PLETAL) PO SCH ×2 (07:30→16:40)
[2019-08-02 08:00] VITALS: BP 150/58
[2019-08-02] MEDS: CALCIUM ACETATE 667 MG GELCAP PO SCH ×3 (08:00→17:22)
[2019-08-02] MEDS: FERROUS GLUCONATE 324 MG TAB PO SCH ×3 (09:00→21:28)
--- NOTE | 2019-08-02 12:55 | IPN ---
DATE: 08/02/2019 Patient seen this morning in dialysis. He states he did not have any episodes of chest pain overnight; however, his telemetry showed a run of 10 beats of nonsustained ventricular tachycardia. He also had an episode on Wednesday of chest pain and atrial fibrillation while he was at dialysis. Cardiology has not been consulted on the service yet. OBJECTIVE: VITAL SIGNS: 97.5 degrees Fahrenheit, pulse is 78, respiratory rate of 18, blood pressure 150/58, saturating 94% on room air. Output has been 550 in the last 24 hours. PHYSICAL EXAM: General: Patient is awake, alert, oriented times three, laying in bed in no apparent distress. HEENT: Extraocular muscles intact. Pupils equal, round, and reactive to light. Mucous membranes moist. No jugular venous distention (JVD). CARDIOVASCULAR: Regular rate and rhythm. Normal S1 and S2. 1+ pitting edema in bilateral lower extremities. RESPIRATORY: Clear to auscultation and percussion (CTAP) with full breath sounds bilateral. No wheezes, crackles, rhonchi. ABDOMEN: Obese, soft, nontender, nondistended. Positive bowel sounds. NEUROLOGIC: No focal neuro deficits. LAB REVIEW: No a.m. labs have been ordered this morning. ASSESSMENT AND PLAN: 1. End-stage renal disease (ESRD) on hemodialysis. Patient will be dialyzed regularly on Wednesday, Wednesday, Wednesday. He was dialyzed today. He was not having chest pain during his dialysis session, and no extra was taken off. 2. Hypertension with end-stage renal disease. Okay to continue current dose of clonidine 0.2 mg by mouth twice a day, hydralazine 25 mg by mouth twice a day, losartan 100 mg by mouth daily. 3. Anemia of end-stage renal disease. Hemoglobin is 10.9. We do not have current labs for today. Unless there is a sudden drop, there is no need for Aranesp administration at this time. 4. Chronic kidney disease (CKD), mineral bone disease. Will continue current dose of PhosLo with meals. 5. Peripheral vascular disease. Patient is on Lipitor, cilostazol 100 mg by mouth twice a day, and is anticoagulated with warfarin. 6. Paroxysmal atrial fibrillation and nonsustained ventricular tachycardia. Cardiology has been consulted this morning with Dr. Padilla for investigation for further evaluation of the patient's chest pain. Patient has an extensive history of peripheral vascular disease and likely coronary artery disease. 7. Type 2 diabetes. Patient is okay to continue current dose of Levemir and insulin.
[2019-08-02 13:35] LABS: HEMATOCRIT 32.5 % (42.0-52.0); HEMOGLOBIN 10.7 g/dl (13.5-17.5); MEAN CORPUSCULAR HEMOGLOBIN 28.3 pg (27.0-33.0); MEAN CORPUSCULAR HGB CONC 32.9 g/dl (32.0-36.5); PLATELET COUNT, AUTOMATED 224 10^3/uL (150-450); RED BLOOD COUNT 3.78 10^6/uL (4.30-6.10); WHITE BLOOD COUNT 4.7 10^3/uL (4.0-10.0)
[2019-08-02 13:44] VITALS: BP 158/70
[2019-08-02] MEDS: ATORVASTATIN 20 MG TAB PO SCH (13:49)
[2019-08-02] MEDS: PANTOPRAZOLE 40MG TAB (PROTONIX) PO SCH (13:50)
[2019-08-02] MEDS: TAMSULOSIN 0.4 MG CAP PO SCH (13:50)
[2019-08-02] MEDS: LOSARTAN 50 MG TAB PO SCH (13:50)
[2019-08-02 13:51] LABS: INR 2.54; PROTHROMBIN TIME 27.2 SECONDS (11.8-14.0)
[2019-08-02] MEDS: cloNIDine 0.2 MG TAB PO SCH (13:51)
[2019-08-02] MEDS: oxyCODONE 15 MG CR TAB PO SCH ×2 (13:52→21:27)
[2019-08-02] MEDS: CitaloPRAM (CeleXA) 20 MG TAB PO SCH (13:52)
[2019-08-02] MEDS: GABAPENTIN 300 MG CAP PO SCH ×2 (13:52→21:27)
[2019-08-02] MEDS: **hydrALAZINE HCL** 25 MG TAB PO SCH (13:53)
[2019-08-02 14:10] LABS: ALBUMIN 3.4 GM/DL (3.2-5.2); BILIRUBIN,TOTAL 0.4 MG/DL (0.2-1.0); CALCIUM LEVEL 9.4 MG/DL (8.8-10.2); CREATININE FOR GFR 2.21 MG/DL (0.70-1.30); GLOMERULAR FILTRATION RATE 32.2 (>49); MAGNESIUM LEVEL 1.8 MG/DL (1.8-2.4); POTASSIUM SERUM 3.6 MEQ/L (3.5-5.1); TOTAL PROTEIN 7.6 GM/DL (6.4-8.2)
[2019-08-02 16:00] VITALS: BP 142/64
[2019-08-02] MEDS: NITROGLYCERIN 2% OINT 1 GM *U/D* PKT TOP SCH ×2 (17:18→20:00)
[2019-08-02] MEDS: AMIODARONE 200 MG TAB (PACERONE) PO SCH ×2 (17:23→21:27)
[2019-08-02] MEDS: CARVedilol 6.25 MG TAB PO SCH (17:23)
--- NOTE | 2019-08-02 17:31 | IPNPDOC ---
Subjective Date Seen The patient was seen on 08/02/19. Subjective Chief Complaint/HPI Does not offer any new complaints today except for intermittent dizziness each for few minutes. He is concerned as he has appointments at [facility] tomorrow for evaluation of his foot infection. He says once they clear his foot he would be able to go on the kidney transplant list so he is eager to keep the appointments. I explained that the gullet slitter will come to see him then we will go from there. He is having intermittent runs of Afib and NSVT on telemetry Objective Physical Examination General Exam: Positive: Alert, Cooperative, No Acute Distress Eye Exam: Positive: PERRLA, Conjunctiva & lids normal, EOMI; Negative: Sclera icteric ENT Exam: Positive: Atraumatic, Mucous membr. moist/pink, Pharynx Normal Neck Exam: Positive: Other (neck with restricted motion due to prior fusion. ); Negative: JVD, thyromegaly Chest Exam: Positive: Clear to auscultation, Normal air movement Heart Exam: Positive: Rate Normal, Regular Rhythm, Normal S1, Normal S2; Negative: Murmurs, Rubs Telemetry: Positive: Atrial fibrillation (SVT/ a fib about 5 mins on 07/31/19 at 9:30 pm) Abdomen Exam: Positive: Normal bowel sounds, Soft; Negative: Tenderness, Hepatospenomegaly Extremity Exam: Positive: Edema (right. left) Skin Exam: Positive: Nl turgor and temperature; Negative: Rash, Breakdown Neuro Exam: Positive: Other (right hemiparesis mild ) Psych Exam: Positive: Memory Intact, Oriented x 3 Assessment /Plan Assessment 64 yo retired [employer] with essential hypertension, history of multiple strokes, peripheral vascular disease, end-stage renal disease on HD MWF, patient of Dr. Jeong, diabetes mellitus with neuropathy and vasculopathy who was brought into the ED for evaluation per nephrology after developing chest pain while in HD today and had an EKG that showed a supraventricular tachycardia with RVR while hemodynamically stable and on room air and was found back in sinus rhythm by the time he was in the ED with studies notable for hypomagnesemia and hypocalcemia all in the setting of a recent history of N/V/D that is now remitting c/f viral gastroenteritis Paroxysmal Afib/ SVT/ NSVT and nonsustained Vtachs in monitor which wer asymptomatic. very short duration 4 to 5 mins seen on monitor with symptoms of dizziness and chest tightness spontaneously corrected to sinus on 08/01/19. Again had same thing post HD today on 08/02 Transient supraventricular tachyarrhythmia transient Aflutter and sinus tach per EKG in ED chart that was printed from dialysis on 07/31/19 will continue on tele, will get another EKG for better rhythm if has tachycardia again. [facility] Consult[facility] Dr Piña On coumadin for peripheral arterial disease with thrombosis with therapeutic INR. Hypertensive urgency on clonidine 0.2 BID, losartan 100 QD, hydralazine 25 BID Insulin dependent diabetes was hypoglycemic this am. levemir dosage reduced with hold parameters. SSI FSBG AC/HS hypoglycemia protocol ESRD on HD, likely 2/2 diabetic nephropathy On HD for 5 years. maintenance HD as pe nephrology. 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 GERD: protonix 40 QD BPH: 0.4mg tamsulosin Recent N/V/D without fever, leukocytosis and self resolving: likely viral gastroenteritis low suspicion of active infection, no antibiotics blood cultures negative till date. DVT prophylaxis: on warfarin for history of LE and UE DVT Plan/VTE VTE Prophylaxis Ordered?: Yes VS, I&O, 24H, Fishbone Vital Signs/I&O Vital Signs Date Time Temp Pulse Resp B/P (MAP) Pulse Ox O2 Delivery O2 Flow Rate FiO2 08/02/19 17:18 138/58 08/02/19 13:52 20 08/02/19 13:44 97.6 110 96 Room Air 08/02/19 00:00 2.0 I&O- Last 24 Hours up to 6 AM 08/02/19 06:00 Intake Total 1130 ml Output Total 550 ml Balance 580 ml Laboratory Data 24H LABS Laboratory Tests 2 08/01/19 20:23: Bedside Glucose (Misc Panel) 182H 08/02/19 06:44: Bedside Glucose (Misc Panel) 56L 08/02/19 07:03: Bedside Glucose (Misc Panel) 69L 08/02/19 08:00: Bedside Glucose (Misc Panel) 68L 08/02/19 08:24: Bedside Glucose (Misc Panel) 104 08/02/19 12:22: Nucleated Red Blood Cells % (auto) 0.0, Prothrombin Time 27.2H, Prothromb Time International Ratio 2.54, Anion Gap 6L, Glomerular Filtration Rate 32.2L, Calcium Level 9.4#, Magnesium Level 1.8, Total Bilirubin 0.4, Aspartate Amino Transf (AST/SGOT) 20, Alanine Aminotransferase (ALT/SGPT) 26, Alkaline Phosphatase 139H, Total Protein 7.6, Albumin 3.4, Albumin/Globulin Ratio 0.81L 08/02/19 13:32: Bedside Glucose (Misc Panel) 77L 08/02/19 16:39: Bedside Glucose (Misc Panel) 170H CBC/BMP Laboratory Tests 08/02/19 12:22 Microbiology Microbiology 07/31/19 Blood Culture - Preliminary, Resulted No growth after 24 hours . All specim... KALYAN RIVERA MD Aug 02, 2019 17:31
[2019-08-02 18:19] LABS: THYROID STIMULATING HORMONE 2.83 uIU/ML (0.358-3.740)
--- NOTE | 2019-08-02 18:48 | CR ---
DATE OF CONSULTATION: 08/02/2019 CARDIOLOGY CONSULTATION REFERRING PHYSICIAN: Dr. Victorina Cruz INDICATION: Recurrent paroxysmal atrial fibrillation with rapid ventricular response and nonsustained ventricular tachycardia. 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 He claims to have had a history of recurrent cerebrovascular events and several bilateral lower extremity arterial embolic events, treated with Coumadin anticoagulant therapy for the past 5 years. He was admitted 07/31/2019, having developed intense chest discomfort while on dialysis with EKG showing atrial flutter with rapid ventricular response. By the time he arrived at [facility] ER from the dialysis unit, his pulse rate was 79 beats per minute and regular, blood pressure 193/86, respiratory rate 18, oxygen saturation 90% on room air. EKG showed sinus rhythm with left ventricular hypertrophy. He was admitted to a telemetry unit for observation and my cardiology service was consulted because of recurrent bouts of atrial fibrillation/flutter with rapid ventricular responses as well as a nonsustained run of monomorphic ventricular tachycardia last evening. CARDINAL CARDIAC SYMPTOMS: CHEST PAIN: Since 2005, has been disabled because of a backinjury and lower leg numbness and weakness. Has been using an electric scooterto ambulate the past 4 years. Walks no farther than approximately 100 feet at a slow pace using a walker. On this level of activity, he denies having had any chest discomfort. Unaware that his EKG has been abnormal since at least September 2014 with tracing documenting left ventricular hypertrophy and repolarization abnormalities at that time. No prior history of myocardial infarction. Serial Troponin I levels have been measured since September 2014, and no elevation has been observed. Has difficulty with swallowing attributed to prior cervical spine fusion 18 years ago. Prior history of epigastric distress but denies hiatal hernia, yet currently on proton pump inhibitor therapy for some time. Underwent a form of stress study through the [facility] [place] 3 months ago, undergoing evaluation prior to possible renal transplantation. Unaware of the results but has not been told he needed further investigation. SHORTNESS OF BREATH: Had smoked heavily for some 40 years, up to one and one-half packs daily, until he stopped in 2013. Continues to have cough productive of clear or greenish sputum. No history of hemoptysis or prior pneumonia. Will experience some effort dyspnea but chief limitation, as mentioned, was bilateral lower leg weakness and neuropathy. Diagnosed with obstructive sleep apnea 3 years ago but intolerant of facial mask. Uses nocturnal home oxygen by nasal prongs. Unaware of prior rheumatic fever or heart murmur but has had echocardiographic evidence of degenerative changes of his mitral and aortic valvular apparatus dating back to September 2014. Last echocardiogram at this facility December 2015 showed no more than trace mitral insufficiency and no hemodynamically significant aortic problem. Treated hypertension since his 40s with EKG findings as mentioned above and echocardiographic evidence of left ventricle hypertrophy with preserved systolic function but left ventricular (LV) diastolic dysfunction with left atrial enlargement dating back to at least September 2014. Unaware of prior echocardiogram showing mild to moderate pericardial effusion December 2015. Prior weight problem (weighed 170 pounds at age 19, maximum weight 230 pounds 2 years ago). Claims to have lost at 20-30 pounds in the past year. Usual blood pressure systolic ranges between 150-170 mm of mercury. PALPITATIONS: Claims not to have been aware of an irregularity of his pulse or previously documented rhythm problem until 07/31/2016. Echocardiographic study September 2014 was prompted by transient ischemic attack and question of cardiac source of embolic material. Possible family history of atrial fibrillation. Brother sustained multiple myocardial infarctions, currently in his 60s. No history of sudden premature cardiac due to arrhythmia. Father had a heart attack and at age 50. No history of congenital deafness. Drinks no more than one or two cups of coffee weekly. Avoids other sources of caffeine. Stopped drinking alcohol in 1999. Unaware of any thyroid problems. Does not use [id number] decongestants, pep pills, or diet pills. Current nonsmoker. NEAR SYNCOPE/SYNCOPE: Does have a history of positional lightheadedness. Has fallen, attributed to his lower extremity neuropathy and leg weakness. Has fallen asleep and fallen out of his chair due to his obstructive sleep apnea. EMBOLIC PHENOMENON: Has had multiple transient ischemic attacks, suspected to be embolic, as well as embolic phenomenon to his lower extremities requiring invasive intervention. History of recurrent to kidney stones requiring intervention, last procedure 4 months ago, followed by Dr. Archer. Documented peripheral vascular disease, undergoing multiple stenting procedures, status post left 5th toe amputation. Unaware of varicose veins or phlebitis. Has had intermittent ankle swelling for the past 5 years. OTHER PAST CARDIAC HISTORY: Radiographic cardiomegaly dating back to at least July 2016. Abnormal EKG dating back to September 2014, showing left ventricle hypertrophy. Serial prior echocardiograms showing left ventricle hypertrophy with LV preserved systolic function but diastolic dysfunction with left atrial enlargement. Walking and bicycle stress study, [facility], 3 months ago: Findings (question). CORONARY RISK FACTORS: Age, gender, prior heavy smoking history, insulin-dependent diabetes mellitus, hypercholesterolemia, hypertension, and family history. No documented carotid vascular disease. OTHER PAST MEDICAL/PAST SURGICAL HISTORY: 1. Degenerative disc disease with cervical fusion 18 years ago. 2. Lumbar disc disease with two separate surgical procedures, Initially in 1982. Disabled because of back pain and lower extremity neuropathy in 2005. 3. Left 5th toe amputation 8 years ago. 4. Bilateral cataract extractions. 5. Fistula formation, right upper arm, 4-1/2 years ago. 6. Dialysis dependent chronic renal failure for 5 years. 7. Recurrent cystoscopies and retrograde pyelograms due to kidney stones. Prior ultrasound therapy for kidney stones. 8. Prior colonic polypectomy. 9. History of hemorrhoids and bleeding. 10. History of depression. 11. Prior left-sided rib fracture with fall from chair January 2019. 12. Gastroesophageal reflux December 2018. 13. Erectile dysfunction. 14. Secondary hyperparathyroidism. 15. According to the EMR, had atrial fibrillation documented December 2018. 16. Prostatism. 17. Prior history of noncompliance. REVIEW OF SYSTEMS: Other than items mentioned above, has been free of any fever, chills. Weight loss as mentioned. Dysphasia related to prior cervical fusion. Sinus problems. Edentulous with upper denture. Wears corrective lenses, post bilateral cataract extractions. Denies abdominal pains. Previous history of intermittent constipation and hemorrhoidal bleeding. Still passes some urine despite his hemodialysis-dependent renal failure. Leg weakness and numbness. Chronic neck and low back pains. All other systems review is negative. ALLERGIES: None known. MEDICATIONS: At the time of his admission, home medications included: - warfarin with alternate doses during the week - losartan 100 mg daily - clonidine 0.2 mg twice a day - hydralazine 25 mg twice a day - atorvastatin 80 mg daily - cilostazol 100 mg twice a day - calcium acetate 1334 mg by mouth daily with meals - vitamin D 50,000 units by mouth weekly Sundays - ferrous gluconate 324 mg by mouth three times a day - Neurontin 300 mg by mouth twice a day - Lantus insulin 30 units subcutaneous at bedtime - Humalog insulin one dose before meals according to sliding scale - probiotic one tablet daily - Lidoderm patches topically to dialysis site three times weekly - oxycodone 5 mg by mouth twice a day breakthrough pain with oxycodone 15 mg by mouth twice a day - Protonix 40 mg daily - Senokot-S one tablet by mouth daily as needed for constipation - Flomax 0.4 mg by mouth daily - trazodone 25 mg by mouth at bedtime as needed for sleep. PHYSICAL EXAMINATION: CONSTITUTIONAL: Slightly barrel-chested, late middle-aged male, lying comfortably with the head of bed elevated 30 degrees. No obvious pallor or cyanosis. Medium body build. VITAL SIGNS: Current heart rate 74 beats per minute and regular blood pressure 150/72 supine, 138/68 (both measurements in his left arm, in light of his right upper arm arteriovenous (AV) fistula), respiratory rate 16 with oxygen saturation 96% on room air. Afebrile. Weight 214 pounds, height 73 inches, body mass index (BMI) 28.3. EYES: Normal-appearing conjunctivae without icterus or petechiae. No xanthelasma. ENT/MOUTH: Edentulous with upper denture. Normal oral moisture. No central cyanosis. NECK: Trachea midline. Jugular veins were not elevated. Thyroid not enlarged. RESPIRATORY: Slightly increased anteroposterior chest diameter with slightly reduced chest excursion. Fair air entry over both lung knutson with scattered bibasilar inspiratory rales. Slight prolongation of expiration but no audible wheeze. CARDIOVASCULAR: Apical impulse not palpable. S1 normal. S2 accentuated. Normal respiratory splitting. S4 gallop. Systolic ejection murmur, at least grade 2/6, heard maximally at the right base but also radiating to the base of his neck and along left sternal border to the apex but not well in the left axilla. No diastolic murmur. Brisk carotid upstrokes with increased volume. Transmitted bruit as mentioned. AV fistula for dialysis, right upper arm, with reduced wrist pulses. Normal pulses in his left arm. Femoral pulses were slightly reduced. Pedal pulses were not detectable. Abdominal aorta was not palpable. No abdominal bruits. Has 1 mm pitting edema one-third up both lower legs. No obvious varicose veins. No sacral pitting edema. GASTROINTESTINAL: Soft, nontender abdomen with no hepatosplenomegaly. Normal bowel sounds. Rectal examination not indicated. MUSCULOSKELETAL: No obvious joint deformities but some right hand weakness following prior cerebrovascular accident (CVA. Proximal muscle wasting and weakness, especially both lower legs, quite tremulous, requiring support to stand. Healed cervical and lumbar spine surgical incisions. NEUROLOGIC/PSYCHIATRIC: Bright, alert, and oriented. Gave a fair history. Eye, facial, and lower leg and extremity movements appeared to be fairly symmetrical. No involuntary movements unless straining to stand. SKIN: No pallor, icterus, or ecchymosis. Degenerative changes, skin both lower legs. INVESTIGATIONS: Chest x-ray: Study reviewed independently from his admission July 31 shows obvious cardiomegaly, even though this is a portable study. Slightly unfolded thoracic aorta. Plump pulmonary vasculature with increased interstitial markings. Slightly elevated left hemidiaphragm. Could not rule out left pleural effusion. EKGs: Serial studies reviewed 05/16/2019 showed sinus bradycardia 55 BPM with left atrial conduction disturbance. Prominent voltage and lateral strain pattern, in keeping with left ventricular hypertrophy (LVH) 07/31/2019 showed no significant change. Serial telemetry strips also reviewed: Bouts of atrial flutter with 2:1 AV response and rate 150 beats per minute. Bouts of atrial fibrillation with rapid ventricular response, varying from 100-160 BPM. Nonsustained bout of monomorphic ventricular tachycardia (VT), a dozen beats at 160 BPM. Blood work: Study from today showed a hemoglobin of 10.7, just slightly down from his admission, with normal red blood cell indices, normal white blood cell count and platelet count. PT/ INR today was 27.2 and 2.5, on warfarin. Electrolytes today were in balance with potassium 3.6, magnesium level 1.8, normal bicarbonate, BUN this morning 20, creatinine 2.2, fasting glucose 81. Serum calcium 9.4 with albumin 3.4. Troponin I on admission was negative. Normal liver function studies. Slightly elevated alkaline phosphatase. Last ultrasensitive TSH was normal at 2.December. Last proBNP level June 2018 was elevated at 5821. Last urinalysis 05/30/2019 was +3 for protein +3 for glucose. Negative for hematuria or bacteria. Previous coagulation workup was negative for CARLITA and cardiolipin. IMPRESSION/PLAN: 1. Paroxysmal atrial fibrillation with rapid ventricular response: Clearly quite symptomatic, as described above, with chest pain and dyspnea. Undoubtedly related to his underlying hypertensive heart disease with left atrial enlargement. In light of his structural heart disease and high likelihood of having coronary disease, amiodarone would be believed to be the safest antiarrhythmic measure. We have started him on 200 mg by mouth four times a day. We have requested that he be monitored in hospital for least 72 hours. This dosage will be continued for 7-10 days, decreasing to 200 mg three times a day for 1 month prior to considering decreasing the dosage to 200 mg twice a day for 3 months and then 200 mg daily. The alternative of atrial fibrillation ablation is a consideration but will be considered at a later point. In light of the need for amiodarone, we have discussed replacing his warfarin with Eliquis 5 mg twice a day once his PT/INR is less than 2.0. A followup echocardiogram/Doppler study has been requested to reassess left atrial size and mitral valve function. 2. Chest pain (precordial): From his history, I could not elicit any clear-cut nonanginal features. With his documented peripheral vascular disease and multiple coronary risk factors, the likelihood of some degree of coronary artery disease is extremely high. Fortunately, troponin I level was negative here. The chief management would be to prevent further bouts of atrial tachyarrhythmia. We are replacing his clonidine gradually with more protective carvedilol. He is already receiving losartan and high-dose atorvastatin. Eliquis has also been shown to be protective against ischemic coronary events. As discussed with Dr. Cesar, we would recommend a pharmacological stress heart scan once he is discharged. 3. Nonsustained ventricular tachycardia: Believed to be a reflection of his underlying structural heart disease and electrolyte disturbances. We anticipate amiodarone will be protective against his ventricular arrhythmia in addition to preventing his atrial tachyarrhythmia, controlling his blood pressure. We intend to redefine his coronary prognosis as an outpatient. 4. Heart failure (diastolic/chronic): Has radiographic, echocardiographic, and chest x-ray evidence of pulmonary venous congestion. With his dialysis he should be following a modest salt and fluid intake restriction. Chief fluid management is with his dialysis. Control of his heart rate and prevention of his atrial tachyarrhythmia would be considered cleaning management to optimize left ventricular diastolic filling time and minimize mean left atrial pressure. 5. Hypertensive heart disease (benign with heart failure): Current systolic blood pressure remains slightly suboptimally controlled on his current therapies. Dietary measures and dialysis as mentioned to help manage his fluid status. His clonidine is being replaced with gradually increasing doses of carvedilol, as his heart rate and blood pressure tolerate. Will remain on losartan, but we have discontinued his low-dose hydralazine. 6. Mitral and aortic valve disorder (nonrheumatic): Previous echocardiograms have shown degenerative changes of these structures without hemodynamically significant abnormality. Last echocardiogram 2015 showed no more than mild mitral insufficiency. Has no symptoms or signs of endocarditis. Optimal management of his valvular findings would be good blood pressure control. 7. Pericardial effusion: Remote echocardiographic study commented on a mild to moderate pericardial effusion without evidence of cardiac tamponade. Certainly does not have features of this condition at this time, but his followup echocardiogram/Doppler study will allow us to further evaluate this. I intend to follow this complicated patient with you closely for the time being and appreciate the opportunity to participate in his care. PAT
[2019-08-02 20:00] VITALS: BP 124/58
[2019-08-02] MEDS ORDERED: cloNIDine 0.1 MG TAB PO SCH (21:00)
[2019-08-02] MEDS: LEVEMIR (INSULIN DETEMIR) 1 UNITS/0.01ML SC SCH (21:26)
[2019-08-03] VITALS (7 sets, daily range): BP systolic 112–156; BP diastolic 52–92
[2019-08-03] MEDS: oxyCODONE 5MG TAB PO PRN ×2 (00:45→10:09)
[2019-08-03] MEDS: CARVedilol 6.25 MG TAB PO SCH ×4 (00:46→17:36)
[2019-08-03] MEDS: NITROGLYCERIN 2% OINT 1 GM *U/D* PKT TOP SCH ×6 (04:00→20:00)
[2019-08-03 06:36] LABS: CREATININE FOR GFR 4.21 MG/DL (0.70-1.30); GLOMERULAR FILTRATION RATE 15.3 (>49)
[2019-08-03] MEDS: HumaLOG INSULIN (NovoLOG) PER UNIT SC SCH ×4 (07:30→20:31)
[2019-08-03] MEDS: CALCIUM ACETATE 667 MG GELCAP PO SCH ×3 (08:00→17:35)
[2019-08-03 08:16] LABS: INR 2.2; PROTHROMBIN TIME 24.2 SECONDS (11.8-14.0)
[2019-08-03 08:17] LABS: PARTIAL THROMBOPLASTIN TIME 56.5 SECONDS (25.0-38.4)
[2019-08-03] MEDS: LOSARTAN 25 MG TAB PO SCH ×2 (09:00→20:32)
[2019-08-03] MEDS: ATORVASTATIN 20 MG TAB PO SCH (09:15)
[2019-08-03] MEDS: PANTOPRAZOLE 40MG TAB (PROTONIX) PO SCH (09:15)
[2019-08-03] MEDS: CitaloPRAM (CeleXA) 20 MG TAB PO SCH (09:16)
[2019-08-03] MEDS: GABAPENTIN 300 MG CAP PO SCH ×2 (09:16→20:32)
[2019-08-03] MEDS: oxyCODONE 15 MG CR TAB PO SCH ×2 (09:17→20:32)
[2019-08-03] MEDS: AMIODARONE 200 MG TAB (PACERONE) PO SCH ×4 (09:17→20:32)
[2019-08-03] MEDS: CILOSTAZOL 100 MG TAB (PLETAL) PO SCH ×2 (09:18→16:49)
[2019-08-03] MEDS: FERROUS GLUCONATE 324 MG TAB PO SCH ×3 (09:18→20:32)
[2019-08-03] MEDS ORDERED: ELIQ5TAB PO (09:27)
--- NOTE | 2019-08-03 13:47 | IPNPDOC ---
Subjective Date Seen The patient was seen on 08/03/19. Subjective Chief Complaint/HPI Patient is concerned that his coumadin was not given yesterday. i explained that we are going to change it to a different one once his INR is < 2. He wanted me to talk to his PMD in [facility] before making any changes in his coumadin. I called Dr Wade's office and left a message to call me back in my cell have not heard back yet. Today his INR is 2.2 so will not give any coumadin or eliquis. Objective Physical Examination General Exam: Positive: Alert, Cooperative, No Acute Distress Eye Exam: Positive: PERRLA, Conjunctiva & lids normal, EOMI; Negative: Sclera icteric ENT Exam: Positive: Atraumatic, Mucous membr. moist/pink, Pharynx Normal Neck Exam: Positive: Other (neck with restricted motion due to prior fusion. ); Negative: JVD, thyromegaly Chest Exam: Positive: Clear to auscultation, Normal air movement Heart Exam: Positive: Rate Normal, Regular Rhythm, Normal S1, Normal S2; Negative: Murmurs, Rubs Telemetry: Positive: Atrial fibrillation (SVT/ a fib about 5 mins on 07/31/19 at 9:30 pm) Abdomen Exam: Positive: Normal bowel sounds, Soft; Negative: Tenderness, Hepatospenomegaly Extremity Exam: Positive: Edema (right. left) Skin Exam: Positive: Nl turgor and temperature; Negative: Rash, Breakdown Neuro Exam: Positive: Other (right hemiparesis mild ) Psych Exam: Positive: Memory Intact, Oriented x 3 Assessment /Plan Assessment 64 yo retired [employer] with essential hypertension, history of multiple strokes, peripheral vascular disease, end-stage renal disease on HD MWF, patient of Dr. Jeong, diabetes mellitus with neuropathy and vasculopathy who was brought into the ED for evaluation per nephrology after developing chest pain while in HD today and had an EKG that showed a supraventricular tachycardia with RVR while hemodynamically stable and on room air and was found back in sinus rhythm by the time he was in the ED with studies notable for hypomagnesemia and hypocalcemia all in the setting of a recent history of N/V/D that is now remitting c/f viral gastroenteritis Paroxysmal Afib/ SVT/ NSVT started on amiodarone. plan is to change his coumadin to Eliquis once INR < 2.0 due to increased bleeding with coumadin and amiodarone interaction. Appreciate Cardiology input. Hypertensive urgency \resolved. Bp well controlled. Clonidine and hydralazine stopped and started on coreg. continue losartan at new dose Insulin dependent diabetes No hypoglycemia today. levemir dosage reduced with hold parameters. SSI FSBG AC/HS hypoglycemia protocol ESRD on HD, likely 2/2 diabetic nephropathy On HD for 5 years. maintenance HD as pe nephrology. 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 GERD: protonix 40 QD BPH: 0.4mg tamsulosin Recent N/V/D without fever, leukocytosis and self resolving: likely viral gastroenteritis low suspicion of active infection, no antibiotics blood cultures negative till date. DVT prophylaxis: on warfarin for history of LE and UE DVT Plan/VTE VTE Prophylaxis Ordered?: Yes VS, I&O, 24H, Fishbone Vital Signs/I&O Vital Signs Date Time Temp Pulse Resp B/P (MAP) Pulse Ox O2 Delivery O2 Flow Rate FiO2 08/03/19 12:00 55 128/60 08/03/19 10:39 18 Room Air 08/03/19 08:00 97.2 99 08/02/19 00:00 2.0 I&O- Last 24 Hours up to 6 AM 08/03/19 06:00 Intake Total 600 ml Output Total 3800 ml Balance -3200 ml Laboratory Data 24H LABS Laboratory Tests 2 08/02/19 16:39: Bedside Glucose (Misc Panel) 170H 08/02/19 20:56: Bedside Glucose (Misc Panel) 175H 08/03/19 05:43: Anion Gap 8, Glomerular Filtration Rate 15.3L, Calcium Level 8.0L 08/03/19 07:47: Bedside Glucose (Misc Panel) 81 08/03/19 07:50: Prothrombin Time 24.2H, Prothromb Time International Ratio 2.20, Activated Partial Thromboplast Time 56.5H 08/03/19 11:42: Bedside Glucose (Misc Panel) 96 CBC/BMP Laboratory Tests 08/03/19 05:43 Microbiology Microbiology 07/31/19 Blood Culture - Preliminary, Resulted No Growth after 48 hours. All Specime... KALYAN RIVERA MD Aug 03, 2019 13:47
--- NOTE | 2019-08-03 14:16 | IPN ---
DATE: 08/03/2019 SUBJECTIVE: The patient was seen this morning at bedside and stated that there were no acute events overnight. He did not have any chest pain and he no longer had any runs of nonsustained ventricular tachycardia. The cardiology service has been consulted and he is presently getting an echo as we see him at bedside. OBJECTIVE: VITAL SIGNS: Temperature 97.2, pulse 56, respiratory rate is 16, blood pressure 128/60, saturating 99% on room air. PHYSICAL EXAMINATION: GENERAL: The patient is awake, alert and oriented. No acute distress. Lying comfortably in bed. HEENT: Extraocular muscles intact. Pupils are equal, round and reactive to light. Mucous membranes are moist. NECK: Supple. Bilateral carotid endarterectomy scars. No jugular venous distention (JVD) present. CARDIOVASCULAR: Regular rate and rhythm. Normal S1, S2. Continues to be 1+ pitting edema in bilateral lower extremities. RESPIRATORY: Clear to auscultation bilaterally with full breath sounds. No wheezes, crackles, rhonchi. ABDOMEN: Obese, soft, nontender, nondistended. Positive bowel sounds. NEUROLOGIC: No focal neuro deficits. LABORATORY REVIEW: Sodium 135, potassium 4, chloride 99, CO2 of 28, BUN 37, creatinine 4.21, glucose of 101, calcium 8. ASSESSMENT AND PLAN: 1. End stage renal disease, on hemodialysis. The patient's regular dialysis days are Wednesday, Wednesday and Wednesday. He was dialyzed yesterday and had 3.5 liters taken off. He will be dialyzed again tomorrow for his regular dialysis session. 2. Hypertension with end stage renal disease. His blood pressure has been stable and we will continue his current blood pressure medication regimen of clonidine 0.2 mg by mouth twice a day, hydralazine 25 mg by mouth twice a day, and losartan 100 mg by mouth daily. The patient has also been started on carvedilol 6.25 mg by mouth every 6 hours and his Losartan has been changed to 25 mg by mouth every 12 hours. The patient has also been started on 200 mg by mouth four times a day of amiodarone. The clonidine and hydralazine have been stopped. 3. Anemia of end stage renal disease. Hemoglobin from yesterday remained stable. No need for Aranesp at this time. 4. Chronic kidney disease, mineral bone disease. Continue PhosLo with meals. 5. Peripheral vascular disease. The patient is on Amiodarone 100 mg by mouth twice a day and is anticoagulated with Warfarin. There is consideration being put forward to start the patient on Eliquis rather than warfarin, but his warfarin is currently being held until his INR is less than 2. Dr. Cruz is reaching out to his vascular surgeon for further input into this. 6. Paroxysmal atrial fibrillation and nonsustained ventricular tachycardia. Cardiology has been consulted with Dr. Piña and changes have been made to the patient's medications, management of this per Dr. Piña in cardiology. THe patient is currently in sinus bradycardia. 7. Type 2 diabetes. The patient is continued on current dose of Levemir insulin. MTDD
[2019-08-03] MEDS: ACETAMINOPHEN TAB 650MG DOSE (2X325MG) PO PRN (16:03)
[2019-08-03] MEDS ORDERED: WARFARIN SOD 5 MG TAB PO SCH (17:00)
--- NOTE | 2019-08-03 17:37 | ECHO ---
DATE OF PROCEDURE: 08/03/2019 DATE OF : 1955 AGE: 64 GENDER: Male HEIGHT: 73 inches WEIGHT: 213 pounds BODY SURFACE AREA: 2.21 meters squared INPATIENT: Progressive care unit (PCU), room 3228 REFERRING PHYSICIAN: Dr. Owen Piña INDICATION: Paroxysmal atrial fibrillation. Heart failure. Hypertensive heart disease. MEASUREMENTS: 2D Measurements: RV: 4.6 cm LV: 3.9 cm Septum: 1.4 cm Posterior wall: 1.4 cm Aortic root: 3.3 cm LA: 4.7 cm LVEF: 75% DOPPLER MEASUREMENTS: AV: 1.63 meters per second LVOT: 0.98 meters per second LVOT diameter: 2.3 cm MV-E: 97, A: 55, EA ratio: 1.7 Early mitral deceleration time: 194 milliseconds E prime medial: 5 A prime medial: 5.9 E prime lateral: 8.4 Average E/E prime ratio: 4.6 Pulmonary capillary wedge pressure: 20 PV: 0.8 meters per second Pulmonary artery acceleration time: 77 milliseconds RVSP: 50-55 mmHg IVC: 2.8 cm COMMENTS: Sinus bradycardia without intraventricular conduction disturbance. M-mode and two-dimensional echocardiography was performed with pulsed, continuous wave, color flow and tissue Doppler studies from the parasternal and apical projections, as well as subcostal. Moderate concentric left ventricular hypertrophy with hyperkinetic wall motion. At least moderately dilated left atrium with grade 2 impairment of left ventricular (LV) diastolic function and elevated mean left atrial pressure. At least moderately dilated right heart chambers with slight right ventricular free wall hypokinesis and moderately severe pulmonary hypertension. Prominently dilated inferior vena cava (IVC) with reduced respiratory collapse in keeping with elevated central venous pressure/right heart failure. Moderately severe aortic valvular sclerosis without stenosis or insufficiency. Mild mitral annular thickening and slight thickening of the mitral leaflets but adequate leaflet excursion and no posterior systolic buckling, yet moderate mitral insufficiency. Normal appearing tricuspid valve with at least moderate insufficiency. No apparent intracardiac mass. Minuscule posterior pericardial effusion without signs of cardiac compression.
[2019-08-03] MEDS: LEVEMIR (INSULIN DETEMIR) 1 UNITS/0.01ML SC SCH (20:31)
--- NOTE | 2019-08-03 21:20 | IPN ---
DATE: 08/03/2019 CARDIOLOGY PROGRESS NOTE SUBJECTIVE: The patient claims to be feeling well with no further palpitations or chest discomforts. His breathing is comfortable at this time. Has been up without feeling lightheadedness based on hold parameters for multiple antihypertensive therapies. OBJECTIVE: Late middle-aged male lay comfortably. Medium body build. Slightly barrel-chested. Heart rate 60 beats per minute and regular, blood pressure 150/84, respiratory rate 16, oxygen (O2) saturation 97% on room air. Afebrile. His weight today is 0.5 kg greater than yesterday. Neck veins remain seemingly 3 cm above the sternal angle, not markedly elevated. Increased anteroposterior chest diameter with few scattered bibasilar inspiratory rales. One mm pitting edema one-third up both lower legs. BEER COOLER: Since the introduction of low-dose carvedilol and amiodarone, the patient has remained in sinus mechanism. No further bouts of atrial fibrillation or flutter. LABORATORY DATA: Blood work today shows a potassium of 4.0. Other electrolytes were in balance. Fasting glucose was 101. Echocardiogram: Study performed earlier today and official report dictated earlier by myself showed moderate concentric left ventricular hypertrophy with hyperkinetic wall motion. At least moderately dilated left atrium with left ventricular (LV) diastolic dysfunction and elevated mean left atrial pressure, at least moderately dilated right heart chambers with moderately severe pulmonary hypertension and prominently dilated inferior vena cava with reduced respiratory collapse, suggestive of an elevated central venous pressure. There was moderately severe aortic valvular sclerosis without functional abnormality. Mild mitral annular calcification with moderate mitral insufficiency. Minuscule posterior pericardial effusion. Tricuspid valve was normal in appearance with moderate insufficiency. IMPRESSION/PLAN: 1. Paroxysmal atrial fibrillation/flutter with rapid ventricular response: Gratifyingly, has responded well to combination amiodarone and carvedilol. He appears to be tolerating these medications without adverse effect. We would request an additional 48 hours of monitoring on this current loading dose of amiodarone. His warfarin is on hold with PT/INR measuring 2.4 today. Once his PT/INR is less than 2, his Eliquis will be started at 5 mg twice a day. 2. Nonsustained ventricular tachycardia: His current medical therapy appears to be preventing ventricular ectopic activity as well. 3. Chest pain (precordial): Suspected to be related to his paroxysmal supraventricular tachycardia with rapid rate. Could not rule out myocardial ischemia as its origin, especially in light of his documented peripheral vascular disease. Jarvis management will be prevention of recurrent atrial tachyarrhythmia. We are trying to introduce carvedilol in place of his clonidine and hydralazine. We have adjusted his losartan to avoid hypotension. Remains on high-dose atorvastatin. Eliquis will ultimately be introduced to help prevent ischemic coronary events. We are hoping to arrange for a pharmacological stress heart scan upon his discharge. 4. Heart failure (diastolic/chronic): Impressive left ventricular diastolic dysfunction as mentioned with secondary pulmonary hypertension. Remains on a modest salt and fluid intake restriction per nephrology, fluid management via dialysis. Maintaining a controlled heart rate will minimize left atrial pressure. 5. Hypertensive heart disease (benign with heart failure): With the introduction of carvedilol and his amiodarone, following his dialysis yesterday, his blood pressure has been more responsive. We have been able to discontinue his clonidine and his hydralazine. For the time being, we have elected to continue low-dose carvedilol every 6 hours until we have a better idea of dosage requirement. At that time, we will provide carvedilol on a twice a day schedule. His losartan, as mentioned above, has also been given in a split dose for safety's sake with our medication adjustments. Has topical nitro paste as a safeguard for blood pressure of 150 or higher. 6. Mitral and aortic valve disorder (nonrheumatic): As mentioned, has moderate mitral insufficiency and significant aortic valvular sclerosis but no functional aortic valve abnormality. Remains free of symptom or sign of endocarditis. 7. Pericardial effusion: Echocardiographic appearance earlier today is considerably less than that described on last echocardiogram in 2016. At this point, my colleague, Dr. Coreas, will continue to monitor him with you.
[2019-08-04] VITALS: BP 148/70
[2019-08-04 04:00] VITALS: BP 156/62
[2019-08-04] MEDS: NITROGLYCERIN 2% OINT 1 GM *U/D* PKT TOP SCH ×7 (04:00→23:47)
[2019-08-04] MEDS: GABAPENTIN 300 MG CAP PO SCH ×2 (05:49→21:30)
[2019-08-04] MEDS: oxyCODONE 5MG TAB PO PRN ×2 (05:49→18:33)
[2019-08-04] MEDS: CARVedilol 6.25 MG TAB PO SCH ×5 (05:50→23:46)
[2019-08-04] MEDS: HumaLOG INSULIN (NovoLOG) PER UNIT SC SCH ×5 (07:30→21:00)
[2019-08-04] MEDS: ATORVASTATIN 20 MG TAB PO SCH (07:44)
[2019-08-04] MEDS: CALCIUM ACETATE 667 MG GELCAP PO SCH ×3 (07:44→18:00)
[2019-08-04] MEDS: CILOSTAZOL 100 MG TAB (PLETAL) PO SCH ×2 (07:44→18:01)
[2019-08-04] MEDS: PANTOPRAZOLE 40MG TAB (PROTONIX) PO SCH (07:45)
[2019-08-04] MEDS: CitaloPRAM (CeleXA) 20 MG TAB PO SCH (07:45)
[2019-08-04] MEDS: AMIODARONE 200 MG TAB (PACERONE) PO SCH ×4 (07:45→21:30)
[2019-08-04] MEDS: FERROUS GLUCONATE 324 MG TAB PO SCH ×3 (07:46→21:29)
[2019-08-04] MEDS: oxyCODONE 15 MG CR TAB PO SCH ×2 (07:46→21:31)
[2019-08-04] MEDS: LOSARTAN 25 MG TAB PO SCH ×3 (07:47→21:30)
[2019-08-04 08:00] VITALS: BP 144/58
[2019-08-04 09:32] LABS: CALCIUM LEVEL 7.9 MG/DL (8.8-10.2); CREATININE FOR GFR 5.68 MG/DL (0.70-1.30); GLOMERULAR FILTRATION RATE 10.8 (>49); POTASSIUM SERUM 4.6 MEQ/L (3.5-5.1)
[2019-08-04] MEDS ORDERED: LIDOCAINE 1% SDV 5 ML VIAL SQ ONE (10:45)
[2019-08-04 13:28] VITALS: BP 106/62
--- NOTE | 2019-08-04 15:20 | IPNPDOC ---
Subjective Date Seen The patient was seen on 08/04/19. Subjective Chief Complaint/HPI Spoke with Dr Wade today and she said will have to discuss with Dr Shyla Rivero who is incharge of the anticoagulation clinic at the [facility] before the change form coumadin to eliquis can be authorirised. unfortunately she is off today and wednesday being a holiday she wont be available before Wednesday. i discussed this with Dr hyatt and he is going to arrange for a card which will give him a month's supply of eliquis and then next week [facility] is going to [facility] and work [facility] out [facility]. Patient is still concerned about this change. Objective Physical Examination General Exam: Positive: Alert, Cooperative, No Acute Distress Eye Exam: Positive: PERRLA, Conjunctiva & lids normal, EOMI; Negative: Sclera icteric ENT Exam: Positive: Atraumatic, Mucous membr. moist/pink, Pharynx Normal Neck Exam: Positive: Other (neck with restricted motion due to prior fusion. ); Negative: JVD, thyromegaly Chest Exam: Positive: Clear to auscultation, Normal air movement Heart Exam: Positive: Rate Normal, Regular Rhythm, Normal S1, Normal S2; Negative: Murmurs, Rubs Telemetry: Positive: No significant arrhythmia Abdomen Exam: Positive: Normal bowel sounds, Soft; Negative: Tenderness, Hepatospenomegaly Extremity Exam: Positive: Edema (right. left) Skin Exam: Positive: Nl turgor and temperature; Negative: Rash, Breakdown Neuro Exam: Positive: Other (right hemiparesis mild ) Psych Exam: Positive: Memory Intact, Oriented x 3 Assessment /Plan Assessment 64 yo retired [employer] with essential hypertension, history of multiple strokes, peripheral vascular disease, end-stage renal disease on HD MWF, patient of Dr. Jeong, diabetes mellitus with neuropathy and vasculopathy who was brought into the ED for evaluation per nephrology after developing chest pain while in HD today and had an EKG that showed a supraventricular tachycardia with RVR while hemodynamically stable and on room air and was found back in sinus rhythm by the time he was in the ED with studies notable for hypomagnesemia and hypocalcemia all in the setting of a recent history of N/V/D that is now remitting c/f viral gastroenteritis Paroxysmal Afib/ aflutter and NSVT started on amiodarone. rhythm now sinus, with no NSVTs. plan is to change his coumadin to Eliquis once INR < 2.0 due to increased bleeding with coumadin and amiodarone interaction. Appreciate Cardiology input. Hypertensive urgency with hypertensive heart disease resolved. Bp well controlled. Clonidine and hydralazine stopped and started on coreg. continue losartan at new dose Diastolic CHF with secondary pulmonary hypertension fluid management with HD, continue with fluid restriction and dietary salt restriction. Non rheumatic valvular heart disease as seen in echo Insulin dependent diabetes No hypoglycemia today. levemir dosage reduced with hold parameters. SSI FSBG AC/HS hypoglycemia protocol ESRD on HD, likely 2/2 diabetic nephropathy On HD for 5 years. maintenance HD as pe nephrology. 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 GERD: protonix 40 QD BPH: 0.4mg tamsulosin Recent N/V/D without fever, leukocytosis and self resolving: likely viral gastroenteritis now resolved. DVT prophylaxis: on warfarin for history of LE and UE DVT Plan/VTE VTE Prophylaxis Ordered?: Yes VS, I&O, 24H, Fishbone Vital Signs/I&O Vital Signs Date Time Temp Pulse Resp B/P (MAP) Pulse Ox O2 Delivery O2 Flow Rate FiO2 08/04/19 14:19 55 106/62 08/04/19 08:00 97.0 20 95 Room Air 08/02/19 00:00 2.0 I&O- Last 24 Hours up to 6 AM 08/04/19 06:00 Intake Total 690 ml Output Total 250 ml Balance 440 ml Laboratory Data 24H LABS Laboratory Tests 2 08/03/19 16:30: Bedside Glucose (Misc Panel) 135H 08/03/19 20:23: Bedside Glucose (Misc Panel) 153H 08/04/19 07:20: Bedside Glucose (Misc Panel) 78L 08/04/19 08:39: Anion Gap 7L, Glomerular Filtration Rate 10.8L, Calcium Level 7.9L 08/04/19 13:43: Bedside Glucose (Misc Panel) 117H CBC/BMP Laboratory Tests 08/04/19 08:39 Microbiology Microbiology 07/31/19 Blood Culture - Preliminary, Resulted No Growth after 72 hours. All specime... KALYAN RIVERA MD Aug 04, 2019 15:20
[2019-08-04 16:00] VITALS: BP 168/62
--- NOTE | 2019-08-04 17:28 | IPN ---
DATE: 08/04/2019 SUBJECTIVE: The patient was seen and examined at the bedside today morning during hemodialysis procedure. He is tolerating the hemodialysis procedure well. He denies any active complaints. He denies any chest pain or palpitations. OBJECTIVE: Vital signs: Temperature is 97 degrees Fahrenheit, blood pressure 106/62, pulse is 55, respiratory rate of 18, saturating 94% on room air. Intake and output: Urine output recorded is 250 mL, weight on the bed scale is 99.5 kg. PHYSICAL EXAMINATION: General: The patient is awake, alert, oriented times three, laying in bed, in no apparent distress. Head and neck exam: Extraocular muscles intact. Pupils equally round and reactive to light. Mucous membranes are moist. Neck is supple. There is no jugular venous distention (JVD). Cardiovascular: S1, S2, regular rate. 1+ edema of the lower extremities. Respiratory: Chest is clear to auscultation bilaterally. Bilateral equal air entry. No rales or rhonchi. Abdomen: Soft, positive bowel sounds. Nontender. No organomegaly. Musculoskeletal: The patient has edema of the lower extremities because of peripheral vascular disease. Central nervous system (DRAINMAN): No focal deficit, power is 5/5 in all extremities. LAB REVIEW: CBC showed a WBC of 4.7, hemoglobin 10.7 and that was 2 days ago. BMP done today showed sodium 135, potassium 4.6, chloride 103, bicarbonate 25, BUN 53, creatinine is 5.6. CURRENT INPATIENT MEDICATIONS: The patient's medications were all reviewed by me. He has been started on losartan 25 mg every 12 hours yesterday. He continues to be on amiodarone 200 mg four times a day. No other change in the medications today as compared with yesterday. ASSESSMENT/PLAN: 1. End-stage renal disease, on hemodialysis. The patient is being dialyzed according to his regular schedule. Ultrafiltration goal will be 3.5 liters as tolerated by his blood pressure. 2. Hypertension with end-stage renal disease. Blood pressures are controlled. His antihypertensive regimen is being changed by cardiology. 3. Anemia in end-stage renal disease. Hemoglobin level is optimal. 4. Peripheral vascular disease. Anticoagulation was changed to Eliquis by cardiology because of interaction with the amiodarone. Continue current dose of Lipitor. 5. Paroxysmal atrial fibrillation and nonsustained ventricular tachycardia (V-tach). The patient is being seen by cardiology. He is being loaded with amiodarone at this time.
[2019-08-04 20:00] VITALS: BP 160/52
[2019-08-04] MEDS: LEVEMIR (INSULIN DETEMIR) 1 UNITS/0.01ML SC SCH (21:32)
[2019-08-04] MEDS: ACETAMINOPHEN TAB 650MG DOSE (2X325MG) PO PRN (23:41)
[2019-08-05] VITALS (7 sets, daily range): BP systolic 130–176; BP diastolic 60–82
[2019-08-05] MEDS: NITROGLYCERIN 2% OINT 1 GM *U/D* PKT TOP SCH ×4 (04:13→16:00)
[2019-08-05] MEDS: CARVedilol 6.25 MG TAB PO SCH ×3 (06:12→20:42)
[2019-08-05 06:25] LABS: CALCIUM LEVEL 8.3 MG/DL (8.8-10.2); CREATININE FOR GFR 3.91 MG/DL (0.70-1.30); GLOMERULAR FILTRATION RATE 16.7 (>49); POTASSIUM SERUM 3.9 MEQ/L (3.5-5.1)
[2019-08-05 06:28] LABS: INR 1.5; PROTHROMBIN TIME 17.8 SECONDS (11.8-14.0)
[2019-08-05] MEDS: HumaLOG INSULIN (NovoLOG) PER UNIT SC SCH ×4 (07:30→20:44)
[2019-08-05] MEDS: LOSARTAN 25 MG TAB PO SCH ×2 (09:00→20:42)
[2019-08-05] MEDS: FERROUS GLUCONATE 324 MG TAB PO SCH ×3 (09:18→20:42)
[2019-08-05] MEDS: CILOSTAZOL 100 MG TAB (PLETAL) PO SCH ×2 (09:20→16:30)
[2019-08-05] MEDS: AMIODARONE 200 MG TAB (PACERONE) PO SCH ×4 (09:20→20:41)
[2019-08-05] MEDS: APIXABAN 5 MG TAB (ELIQUIS) PO SCH ×3 (09:21→20:42)
[2019-08-05] MEDS: ATORVASTATIN 20 MG TAB PO SCH (09:21)
[2019-08-05] MEDS: CALCIUM ACETATE 667 MG GELCAP PO SCH ×3 (09:21→16:30)
[2019-08-05] MEDS: PANTOPRAZOLE 40MG TAB (PROTONIX) PO SCH (09:21)
[2019-08-05] MEDS: GABAPENTIN 300 MG CAP PO SCH ×2 (09:21→20:42)
[2019-08-05] MEDS: oxyCODONE 15 MG CR TAB PO SCH ×2 (09:23→20:43)
[2019-08-05] MEDS: CitaloPRAM (CeleXA) 20 MG TAB PO SCH (09:32)
--- NOTE | 2019-08-05 13:12 | IPN ---
DATE OF SERVICE: 08/05/2019 SUBJECTIVE: The patient seen and examined this morning at bedside. He had dialysis yesterday and tolerated it well. He has no complaints this morning and states the only thing that is being adjusted are his glucose levels. He denies any chest pain or palpitations. He had 3.5 liters removed yesterday and with regular dialysis days on Wednesday, Wednesday, Wednesday. OBJECTIVE: Vital Signs: Temperature 96.6, pulse 53, respiratory rate 16, blood pressure 130/60, saturating 96% on room air. Once again, 3500 mL of fluid removed yesterday at dialysis. PHYSICAL EXAMINATION: General: The patient is awake, alert and oriented, in no acute distress, resting comfortably in bed. HEENT: Head is normocephalic, atraumatic. Extraocular muscles intact (EOMI). Pupils equal round and reactive to light. Mucous membranes moist. Neck is supple with no jugular venous distention (JVD). Cardiovascular: Regular rate and rhythm. Normal S1 and S2. 1+ edema of the bilateral lower extremities. Respiratory: Clear to auscultation bilaterally. No wheezes, crackles or rhonchi. Abdomen: Soft. Nontender. Nondistended. Positive bowel sounds. Musculoskeletal: The patient has edema of lower extremities secondary to peripheral vascular disease. Neurologic: No focal neurologic deficits. Strength is 5/5 in all extremities. LAB REVIEW: Sodium of 136, potassium 3.9, chloride 101, CO2 30, BUN 31, creatinine 3.91, glucose 66, calcium 8.3. ASSESSMENT AND PLAN: 1. End stage renal dialysis, on hemodialysis. Patient is on his regular dialysis schedule and had 3.5 liters taken off through ultrafiltration as tolerated by his blood pressure. 2. Hypertension with end stage renal disease. Blood pressures are well controlled. Antihypertensive regimen as per cardiology recommendations. 3. Anemia in end stage renal disease. Hemoglobin level is stable. Will continue to monitor at dialysis. 4. Peripheral vascular disease. He is currently on Eliquis for anticoagulation per cardiology recommendation and secondary to its interaction with amiodarone he is continued on current dose of Lipitor. 5. Paroxysmal atrial fibrillation and nonsustained ventricular tachycardia. Management as per cardiology.
--- NOTE | 2019-08-05 17:16 | IPNPDOC ---
Subjective Date Seen The patient was seen on 08/05/19. Subjective Chief Complaint/HPI Patient does not offer any complaints. he is very concerned about his anticoagulation change. I spoke with Dr Marinelli about the coupon for eliuis. He says that with medicare the coupons do not work but he will give him a week of samples for the eliquis. Cannot talk with [place] [facility] to get authorization before 08/08/19 as Wednesday is . Telemtrey no arrhythmia This am he was very hypoglycemic again . He was in the bathroom and could not get up he was very weak and dizzy and his FS was %0. he had to pull the emergency cord. I have reduced his levemir again today. He says he has been changing his diet stopped sodas and sugars and sweets in his diet trying to loose weight . Objective Physical Examination General Exam: Positive: Alert, Cooperative, No Acute Distress Eye Exam: Positive: PERRLA, Conjunctiva & lids normal, EOMI; Negative: Sclera icteric ENT Exam: Positive: Atraumatic, Mucous membr. moist/pink, Pharynx Normal Neck Exam: Positive: Other (neck with restricted motion due to prior fusion. ); Negative: JVD, thyromegaly Chest Exam: Positive: Clear to auscultation, Normal air movement Heart Exam: Positive: Rate Normal, Regular Rhythm, Normal S1, Normal S2; Negative: Murmurs, Rubs Telemetry: Positive: No significant arrhythmia Abdomen Exam: Positive: Normal bowel sounds, Soft; Negative: Tenderness, Hepatospenomegaly Extremity Exam: Positive: Edema (on the right leg) Skin Exam: Positive: Nl turgor and temperature; Negative: Rash, Breakdown Neuro Exam: Positive: Other (right hemiparesis mild ) Psych Exam: Positive: Memory Intact, Oriented x 3 Assessment /Plan Assessment 64 yo retired [employer] with essential hypertension, history of multiple strokes, peripheral vascular disease, end-stage renal disease on HD MWF, patient of Dr. Jeong, diabetes mellitus with neuropathy and vasculopathy who was brought into the ED for evaluation per nephrology after developing chest pain while in HD today and had an EKG that showed a supraventricular tachycardia with RVR while hemodynamically stable and on room air and was found back in sinus rhythm by the time he was in the ED with studies notable for hypomagnesemia and hypocalcemia all in the setting of a recent history of N/V/D that is now remitting c/f viral gastroenteritis Paroxysmal Afib/ aflutter and NSVT No further episodes on telemetry since 08/02/19 started on amiodarone. currently on 200 qid. rhythm now sinus, with no NSVTs. changed coumadin to eliquis due to increased bleeding with coumadin and amio darone interaction. Appreciate Cardiology input. Hypertensive urgency with hypertensive heart disease resolved. Bp well controlled. Clonidine and hydralazine stopped continue losartan at 25 bid will increase if bp becomes uncontrolled coreg 6.25 bid stopped nitropaste. Diastolic CHF with secondary pulmonary hypertension fluid management with HD, continue with fluid restriction and dietary salt restriction. Non rheumatic valvular heart disease as seen in echo Insulin dependent diabetes Again had hypoglycemia today levemir dosage further reduced with hold parameters. Patient says he has been working on his diet and trying to loose weight. SSI FSBG AC/HS hypoglycemia protocol ESRD on HD, likely 2/2 diabetic nephropathy On HD for 5 years. maintenance HD as pe nephrology. 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 GERD: protonix 40 QD BPH: 0.4mg tamsulosin Recent N/V/D without fever, leukocytosis and self resolving: likely viral gastroenteritis now resolved. DVT prophylaxis: on warfarin for history of LE and UE DVT Plan/VTE VTE Prophylaxis Ordered?: Yes VS, I&O, 24H, Fishbone Vital Signs/I&O Vital Signs Date Time Temp Pulse Resp B/P (MAP) Pulse Ox O2 Delivery O2 Flow Rate FiO2 08/05/19 15:42 97.2 57 18 148/68 (94) 94 Room Air 08/02/19 00:00 2.0 I&O- Last 24 Hours up to 6 AM 08/05/19 06:00 Intake Total 1690 ml Output Total 3925 ml Balance -2235 ml Laboratory Data 24H LABS Laboratory Tests 2 08/04/19 20:43: Bedside Glucose (Misc Panel) 167H 08/05/19 05:48: Prothrombin Time 17.8H, Prothromb Time International Ratio 1.50, Anion Gap 5L, Glomerular Filtration Rate 16.7L, Calcium Level 8.3L 08/05/19 06:26: Bedside Glucose (Misc Panel) 50L 08/05/19 06:42: Bedside Glucose (Misc Panel) 56L 08/05/19 07:14: Bedside Glucose (Misc Panel) 87 08/05/19 09:29: Bedside Glucose (Misc Panel) 112 08/05/19 11:51: Bedside Glucose (Misc Panel) 160H 08/05/19 16:36: Bedside Glucose (Misc Panel) 231H CBC/BMP Laboratory Tests 08/05/19 05:48 Microbiology Microbiology 07/31/19 Blood Culture - Preliminary, Resulted No Growth after 72 hours. All specime... KALYAN RIVERA MD Aug 05, 2019 17:16
[2019-08-05] MEDS ORDERED: LEVEMIR (INSULIN DETEMIR) 1 UNITS/0.01ML SC SCH (21:00)
[2019-08-06] VITALS: BP 162/72
[2019-08-06 04:25] VITALS: BP 238/78
[2019-08-06] MEDS ORDERED: METOPROLOL 5 MG/5 ML VIAL IV STA (04:47)
[2019-08-06 05:03] VITALS: BP 238/78
[2019-08-06 05:15] VITALS: BP 170/76
[2019-08-06 05:57] LABS: INR 1.7; PROTHROMBIN TIME 19.7 SECONDS (11.8-14.0)
[2019-08-06 06:17] LABS: CALCIUM LEVEL 8.1 MG/DL (8.8-10.2); CREATININE FOR GFR 5.07 MG/DL (0.70-1.30); GLOMERULAR FILTRATION RATE 12.3 (>49); POTASSIUM SERUM 4.4 MEQ/L (3.5-5.1)
[2019-08-06 08:00] VITALS: BP 170/60
[2019-08-06] MEDS: HumaLOG INSULIN (NovoLOG) PER UNIT SC SCH ×2 (08:03→12:53)
[2019-08-06] MEDS: GABAPENTIN 300 MG CAP PO SCH (08:03)
[2019-08-06] MEDS: oxyCODONE 15 MG CR TAB PO SCH (08:07)
[2019-08-06] MEDS: CitaloPRAM (CeleXA) 20 MG TAB PO SCH (08:07)
[2019-08-06] MEDS: PANTOPRAZOLE 40MG TAB (PROTONIX) PO SCH (08:08)
[2019-08-06] MEDS: AMIODARONE 200 MG TAB (PACERONE) PO SCH ×2 (08:08→12:53)
[2019-08-06] MEDS: CARVedilol 6.25 MG TAB PO SCH (08:08)
[2019-08-06] MEDS: ATORVASTATIN 20 MG TAB PO SCH (08:08)
[2019-08-06] MEDS: FERROUS GLUCONATE 324 MG TAB PO SCH (08:08)
[2019-08-06] MEDS: APIXABAN 5 MG TAB (ELIQUIS) PO SCH (08:08)
[2019-08-06] MEDS: CALCIUM ACETATE 667 MG GELCAP PO SCH ×2 (08:08→11:35)
[2019-08-06] MEDS ORDERED: LOSARTAN 25 MG TAB PO SCH (09:00)
[2019-08-06] MEDS ORDERED: VITAMIN D 50,000 UNITS CAPSULE (ERGOCALCIFEROL 1.25MG) PO SCH (09:00)
[2019-08-06] MEDS: CILOSTAZOL 100 MG TAB (PLETAL) PO SCH (09:30)
[2019-08-06 12:00] VITALS: BP 158/60
[2019-08-06] MEDS ORDERED: LANTINJ4 SC (13:54)
[2019-08-06] MEDS ORDERED: LOSA100T50 PO (13:54)
[2019-08-06] MEDS ORDERED: CARV6.25 PO (13:54)
[2019-08-06] MEDS ORDERED: AMIO200T PO (13:54)
[2019-08-06] MEDS: oxyCODONE 5MG TAB PO PRN (14:59)
--- NOTE | 2019-08-06 17:02 | DS.PDOC ---
Discharge Summary General Date of Admission Aug 02, 2019 at 16:28 Date of Discharge 08/06/2019 Discharge Summary PROCEDURES PERFORMED DURING STAY: [None]. DISCHARGE DIAGNOSES: Paroxysmal Afib/ Aflutter NSVTs Hypoglycemia viral gastroenteritis SECONDARY DIAGNOSIS: Essential hypertension with hypertensive heart disease, non rheumatic valvular heart disease, diastolic CHF, history of multiple strokes with right residual paresis, peripheral vascular disease, end-stage renal disease on HD MWF, diabetes mellitus with neuropathy and vasculopathy, depression, hyperlipidemia, GERD, BPH COMPLICATIONS/CHIEF COMPLAINT: Hypomagnesemia. HISTORY OF PRESENT ILLNESS: See history and physical HOSPITAL COURSE: 64 yo retired [employer] with essential hypertension, history of multiple strokes, peripheral vascular disease, end-stage renal disease on HD MWF, patient of Dr. Jeong, diabetes mellitus with neuropathy and vasculopathy who was brought into the ED for evaluation per nephrology after developing chest pain while in HD today and had an EKG that showed a a fib with RVR while hemodynamically stable and on room air and was found back in sinus rhythm by the time he was in the ED with studies notable for hypomagnesemia and hypocalcemia all in the setting of a recent history of N/V/D that has now remitted c/f viral gastroenteritis. Further telemetry monitoring in the hospital showed episodes of Afib with rvr with symptoms of chest tightness and dizziness and short asymptomatic episodes of NSVT. He was started on amiodarone and coreg by cardiology. His blood pressure medications were also adjusted. He was also having episodes of hypoglycemia in 50s in the early mornings so his levemir was reduced. Paroxysmal Afib/ aflutter and NSVT No further episodes on telemetry since 08/02/19 started on amiodarone. discharged with 200 bid changed coumadin to eliquis due to increased bleeding with coumadin and amiodarone interaction. Appreciate Cardiology input. Follwo up with Dr Piña in 3 to 5 days. Hypertensive urgency with hypertensive heart disease resolved. Bp well controlled. Clonidine and hydralazine stopped continue losartan at 50 bid, coreg 6.25 bid stopped nitropaste. Diastolic CHF with secondary pulmonary hypertension fluid management with HD, continue with fluid restriction and dietary salt restriction. Non rheumatic valvular heart disease as seen in echo Insulin dependent diabetes levemir dosage reduced to 15 units at night as he has been having hypoglycemia in the mornings. Patient says he has been working on his diet and trying to loose weight. SSI FSBG AC/HS ESRD on HD, likely 2/2 diabetic nephropathy On HD for 5 years. maintenance HD as pe nephrology. Daily electrolytes phoslo with meals continue iron supplementation PVD with multiple arterial thrombosis cilostazol and on eliquis Chronic pain: Gabapentin 300 BID Oxycontin 15 BID Depression: continue home celexa continue trazodone 25 QHS PRn for insomnia Hyperlipidemia: Lipitor 40 Old Multiple CVAs with residual right hemiparesis leg more than arm. GERD: protonix 40 QD BPH: 0.4mg tamsulosin Recent N/V/D without fever, leukocytosis and self resolving: likely viral gastroenteritis now resolved. DISCHARGE MEDICATIONS: Please see below. ALLERGIES: Please see below. PHYSICAL EXAMINATION ON DISCHARGE: VITAL SIGNS: Please see below. General Exam: Positive: Alert, Cooperative, No Acute Distress Eye Exam: Positive: PERRLA, Conjunctiva & lids normal, EOMI; Negative: Sclera icteric ENT Exam: Positive: Atraumatic, Mucous membr. moist/pink, Pharynx Normal Neck Exam: Positive: Other (neck with restricted motion due to prior fusion. ); Negative: JVD, thyromegaly Chest Exam: Positive: Clear to auscultation, Normal air movement Heart Exam: Positive: Rate Normal, Regular Rhythm, Normal S1, Normal S2; Negative: Murmurs, Rubs Telemetry: Positive: No significant arrhythmia Abdomen Exam: Positive: Normal bowel sounds, Soft; Negative: Tenderness, Hepatospenomegaly Extremity Exam: Positive: Edema (on the right leg) Skin Exam: Positive: Nl turgor and temperature; Negative: Rash, Breakdown Neuro Exam: Positive: Other (right hemiparesis mild ) Psych Exam: Positive: Memory Intact, Oriented x 3 LABORATORY DATA: Please see below. ACTIVITY: [As tolerated]. DIET: Carb consistent , 2 gram sodium DISPOSITION: 01 Home, Self-Care. DISCHARGE INSTRUCTIONS: Follow up Dr Piña in 3 to 5 days. PMD in 1 week DISCHARGE CONDITION: [Stable]. TIME SPENT ON DISCHARGE: 35 minutes. Vital Signs/I&Os Vital Signs Date Time Temp Pulse Resp B/P (MAP) Pulse Ox O2 Delivery O2 Flow Rate FiO2 08/06/19 14:59 18 08/06/19 12:00 97.8 59 158/60 (92) 91 Room Air 08/02/19 00:00 2.0 I&O- Last 24 Hours up to 6 AM 08/06/19 06:00 Intake Total 1880 ml Output Total 550 ml Balance 1330 ml Laboratory Data Labs 24H Laboratory Tests 2 08/05/19 20:38: Bedside Glucose (Misc Panel) 124H 08/06/19 05:32: Prothrombin Time 19.7H, Prothromb Time International Ratio 1.70, Anion Gap 9, Glomerular Filtration Rate 12.3L, Calcium Level 8.1L 08/06/19 11:38: Bedside Glucose (Misc Panel) 128H CBC/BMP Laboratory Tests 08/06/19 05:32 FSBS Laboratory Tests Test 08/05/19 20:38 08/06/19 11:38 Range/Units Bedside Glucose (Misc Panel) 124 128 80-115 MG/DL Microbiology Microbiology 07/31/19 Blood Culture - Final, Complete NO GROWTH AFTER 5 DAYS Discharge Medications Scheduled Amiodarone HCl (Amiodarone HCl) 200 Mg Tablet, 200 MG PO BID Apixaban (Eliquis) 5 Mg Tablet, 5 MG PO BID Atorvastatin Calcium (Atorvastatin Calcium) 80 Mg Tab, 80 MG PO DAILY, (Reported) Calcium Acetate (Calcium Acetate) 667 Mg Cap, 1,334 MG PO WM, (Reported) Carvedilol (Carvedilol) 6.25 Mg Tablet, 6.25 MG PO BID Cilostazol (Cilostazol) 100 Mg Tab, 100 MG PO BID, (Reported) Citalopram Hydrobromide (Citalopram HBr) 20 Mg Tab, 10 MG PO DAILY, (Reported) Ergocalciferol (Vitamin D2) (Vitamin D2) 50,000 Unit Cap, 50,000 UNIT PO QWEEK, (Reported) SUNDAYS Ferrous Gluconate (Ferrous Gluconate) 324 Mg Tab, 324 MG PO TID, (Reported) Gabapentin (Neurontin) 300 Mg Cap, 300 MG PO BID, (Reported) Insulin Glargine,Hum.rec.anlog (Lantus Solostar) 100 Unit/Ml Inj, 15 UNIT SC QHS Insulin Human Lispro (Humalog) 100 Unit/1 Ml Vial, 1 DOSE SC AC, (Reported) PER SLIDING SCALE Lactobacillus Acidophilus (Probiotic) 1 Each Capsule, 1 CAP PO DAILY, (Reported) Lidocaine/Prilocaine (Lidocaine-Prilocaine Cream) 30 Gm Cream..g., 1 DOSE TOP 3XW, (Reported) APPLY TO DIALYSIS PORT Losartan Potassium (Losartan Potassium) 100 Mg Tab, 50 MG PO BID take 1/2 tab in am and 1/2 at night Oxycodone HCl (Oxycontin) 15 Mg Tab.er.12h, 15 MG PO BID, (Reported) Pantoprazole Sodium (Pantoprazole Sodium) 40 Mg Tab, 40 MG PO DAILY, (Reported) Tamsulosin HCl (Flomax) 0.4 Mg Capsule, 0.4 MG PO DAILY, (Reported) Scheduled PRN Collagenase Clostridium Hist. (Santyl) 30 Gm Oint...g., 1 DOSE TOP DAILY PRN for WOUND CARE, (Reported) Dextrose (Glucose) 4 Gm Chw, 4 GM PO ASDIRECTED PRN for BLOOD SUGAR, (Reported) FOR LOW BLOOD PRESSURE LESS THAN 70 Oxycodone HCl (Oxycodone HCl) 5 Mg Tab, 5 MG PO BID PRN for BREAKTHROUGH PAIN, (Reported) Sennosides/Docusate Sodium (Senokot-S Tablet) 1 Each Tablet, 1 TAB PO QHSP PRN for CONSTIPATION, (Reported) Trazodone HCl (Trazodone HCl) 50 Mg Tab, 25 MG PO QHS PRN for SLEEP, (Reported) Allergies Coded Allergies: No Known Allergies (Unverified , 12/08/18) KALYAN RIVERA MD Aug 06, 2019 17:02
== END 2019-08-06 15:17 | disposition home or self-care (01) | DRG 308 ==
LOC: EDBD 10:11 → M ED 10:11 → M ED INP 10:12 → M PCU 18:45 → OBSVTOIN 08-02 16:28
PROVIDERS: ADMIT Internal Medicine; ATTEND Internal Medicine Nephrology
PROC: 5A1D70Z Performance of Urinary Filtration, Intermittent, Less than 6 Hours Per Day (ICD-10-PCS; principal; 2019-08-02)
DX: I48.0 Paroxysmal atrial fibrillation (principal); N18.6 End stage renal disease; I13.2 Hypertensive heart and chronic kidney disease with heart failure and with stage 5 chronic kidney disease, or end stage renal disease; I50.32 Chronic diastolic (congestive) heart failure; I69.951 Hemiplegia and hemiparesis following unspecified cerebrovascular disease affecting right dominant side; N25.81 Secondary hyperparathyroidism of renal origin; I48.92 Unspecified atrial flutter; A08.8 Other specified intestinal infections; E11.51 Type 2 diabetes mellitus with diabetic peripheral angiopathy without gangrene; F32.9 Major depressive disorder, single episode, unspecified; E78.5 Hyperlipidemia, unspecified; K21.9 Gastro-esophageal reflux disease without esophagitis; N40.0 Benign prostatic hyperplasia without lower urinary tract symptoms; E83.42 Hypomagnesemia; E83.51 Hypocalcemia; E11.649 Type 2 diabetes mellitus with hypoglycemia without coma; I16.0 Hypertensive urgency; I27.20 Pulmonary hypertension, unspecified; Z79.4 Long term (current) use of insulin; E11.21 Type 2 diabetes mellitus with diabetic nephropathy; G89.29 Other chronic pain; Z79.899 Other long term (current) drug therapy; Z87.891 Personal history of nicotine dependence; D63.1 Anemia in chronic kidney disease; Z98.41 Cataract extraction status, right eye; Z98.42 Cataract extraction status, left eye; G47.33 Obstructive sleep apnea (adult) (pediatric); Z99.2 Dependence on renal dialysis; I47.2 Ventricular tachycardia; I08.0 Rheumatic disorders of both mitral and aortic valves

== ENCOUNTER 2019-08-10 02:45 | Emergency (ER) | payer MEDICARE ==
[~2019-08-10] VITALS: Ht 185.4 cm; Wt 105.3 kg
[~2019-08-10 02:45] MED LIST changes: +AMIO200T PO; +CARV6.25 PO; +ELIQ5TAB PO; -ENOXAPARIN 30 MG/0.3 ML SYR (J1650) SC SCH; -LOSARTAN 50 MG TAB PO SCH
[2019-08-10 03:07] LABS: BASO # 0.1 10^3/uL (0.0-0.2); BASO % 0.8 % (0.0-1.0); EOS # 0.2 10^3/uL (0.0-0.5); EOS % 3.1 % (0.0-3.0); HEMOGLOBIN 9.7 g/dl (13.5-17.5); LYMPH # 0.9 10^3/uL (1.5-5.0); LYMPH % 14.7 % (24.0-44.0); MEAN CORPUSCULAR HEMOGLOBIN 28.4 pg (27.0-33.0); MEAN CORPUSCULAR HGB CONC 32.3 g/dl (32.0-36.5); MONO # 0.7 10^3/uL (0.0-0.8); MONO % 10.3 % (0.0-5.0); NEUTROPHILS # 4.5 10^3/uL (1.5-8.5); NEUTROPHILS % 70.5 % (36.0-66.0); PLATELET COUNT, AUTOMATED 214 10^3/uL (150-450); RED BLOOD COUNT 3.41 10^6/uL (4.30-6.10); WHITE BLOOD COUNT 6.4 10^3/uL (4.0-10.0)
[2019-08-10] MEDS ORDERED: DEXTROSE 50% 50 ML SYRINGE IV STA (03:21)
[2019-08-10 03:29] LABS: ALBUMIN 3.3 GM/DL (3.2-5.2); BILIRUBIN,TOTAL 0.7 MG/DL (0.2-1.0); CALCIUM LEVEL 7.6 MG/DL (8.8-10.2); CREATININE FOR GFR 4.72 MG/DL (0.70-1.30); GLOMERULAR FILTRATION RATE 13.4 (>49); TOTAL PROTEIN 7.3 GM/DL (6.4-8.2)
[2019-08-10 03:30] LABS: CK-MB VALUE MASS 8.8 NG/ML (<3.6); CPK CREATINE PHOSPHOKINASE 257 U/L (39-308); MAGNESIUM LEVEL 1.7 MG/DL (1.8-2.4); MB/CK RELATIVE INDEX 3.42 (< OR =4); TROPONIN I < 0.02 NG/ML (< 0.10)
--- NOTE | 2019-08-10 03:52 | REPVR ---
PROCEDURE INFORMATION: Exam: CT Head Without Contrast Exam date and time: 08/10/2019 3:08 AM Clinical history: 64 years old, male; Altered mental status/memory loss; Confusion or disorientation; Patient HX: Low blood sugar; Additional info: AMS TECHNIQUE: Imaging protocol: Computed tomography of the head without contrast. Radiation optimization: All CT scans at this facility use at least one of these dose optimization techniques: automated exposure control; mA and/or kV adjustment per patient size (includes targeted exams where dose is matched to clinical indication); or iterative reconstruction. COMPARISON: CT Head without contrast 01/31/2019 10:36 PM FINDINGS: Brain: There is mild patchy low attenuation of deep white matter. There is slight prominence of the peripheral sulci. Ventricles: There is mild prominence of the central ventricular system. The temporal horns are not particularly prominent. Bones/joints: Unremarkable. No acute fracture. Sinuses: Visualized sinuses are unremarkable. No fluid levels. Mastoid air cells: Visualized mastoid air cells are well aerated. Soft tissues: Unremarkable. IMPRESSION: 1. There has been no change since 01/31/2019. No acute interval intracranial process is identified. 2. Mild chronic ischemic white matter change and atrophy for age. Electronically signed by: Arcadio Rajput On 08/10/2019 03:51:21 AM
[2019-08-10 08:08] VITALS: BP 157/67
== END 2019-08-10 08:09 | disposition home or self-care (01) ==
LOC: M ED 02:45
DX: E16.2 Hypoglycemia, unspecified (principal); I12.0 Hypertensive chronic kidney disease with stage 5 chronic kidney disease or end stage renal disease; E11.40 Type 2 diabetes mellitus with diabetic neuropathy, unspecified; I73.9 Peripheral vascular disease, unspecified; Z89.422 Acquired absence of other left toe(s); Z79.01 Long term (current) use of anticoagulants; Z79.51 Long term (current) use of inhaled steroids; Z79.83 Long term (current) use of bisphosphonates; Z79.899 Other long term (current) drug therapy